=== PATIENT | female | born 1965 | race Caucasian/White ===

== ENCOUNTER → 2017-03-22 | Outpatient (CLI) | payer BC | END | disposition home or self-care (01) | LOC: KCIC MAMMO 07:53 | DX: Z12.31 Encounter for screening mammogram for malignant neoplasm of breast (principal) | CPT/HCPCS: 77063; 77067 ==

== ENCOUNTER 2017-05-28 15:12 | Inpatient (IN) | payer BC ==
[2017-05-28 16:49] LABS: BASO # 0.2 x10^3/uL (0.0-0.2); BASO % 1 % (0-3); EOS # 0.1 x10^3/uL (0.0-0.7); EOS % 1 % (0-3); HEMATOCRIT 44.7 % (36.0-47.0); HEMOGLOBIN 14.5 g/dL (12.0-15.5); LYMPH # 6.4 x10^3/uL (1.0-4.8); LYMPH % 28 % (24-48); MEAN CORPUSCULAR HEMOGLOBIN 30 pg (25-35); MEAN CORPUSCULAR HGB CONC 33 g/dL (31-37); MEAN CORPUSCULAR VOLUME 92 fL (79-100); MONO # 1.2 x10^3/uL (0.0-1.1); MONO % 6 % (0-9); NEUT # 14.6 x10^3uL (1.8-7.7); NEUT % 65 % (31-73); PLATELET COUNT 384 x10^3/uL (140-400); RED BLOOD COUNT 4.88 x10^6/uL (3.50-5.40); WHITE BLOOD COUNT 22.4 x10^3/uL (4.0-11.0)
[2017-05-28 16:51] LABS: ADD MAN DIFF? YES
[2017-05-28 17:05] LABS: ANION GAP 12 (6-14); BLOOD UREA NITROGEN 17 mg/dL (7-20); CALCIUM 8.8 mg/dL (8.5-10.1); CARBON DIOXIDE 27 mmol/L (21-32); CHLORIDE 106 mmol/L (98-107); CREATININE 0.8 mg/dL (0.6-1.0); GFR 75.3; GLUCOSE 165 mg/dL (70-99); POTASSIUM 3.3 mmol/L (3.5-5.1); SODIUM 145 mmol/L (136-145)
[2017-05-28 17:08] LABS: % LYMPHS 28 % (24-48); % METAS 1 % (0-0); % MONOS 4 % (0-10); % SEGS 67 % (35-66); PLT ESTIMATE ADEQUATE (ADEQUATE)
[2017-05-28 17:09] LABS: TOXIC GRANULATION MOD
[2017-05-28 17:14] LABS: NT-PRO BNP 79 pg/mL (0-124)
[2017-05-28 17:16] LABS: TROPONINI < 0.017 ng/mL (0.000-0.055)
[2017-05-28 17:17] LABS: ALBUMIN 2.9 g/dL (3.4-5.0); ALK PHOS 108 U/L (46-116); ALT (SGPT) 45 U/L (14-59); AST (SGOT) 19 U/L (15-37); DIRECT BILIRUBIN < 0.1 mg/dL (0.0-0.2); LIPASE 100 U/L (73-393); TOTAL BILIRUBIN 0.2 mg/dL (0.2-1.0); TOTAL PROTEIN 6.9 g/dL (6.4-8.2)
[2017-05-28] MEDS: IPRATRPIUM/ALBUTEROL 0.5/2.5MG 3 ML NEBU. NEB ×2 (17:25→19:46)
[2017-05-28 17:26] LABS: INFLUENZA A PATIENT NEGATIVE (NEGATIVE); INFLUENZA B PATIENT NEGATIVE (NEGATIVE); OBC FLU VALID
[2017-05-28] MEDS: IV NORMAL SALINE 1000ML BAG 1,000 ML IV ×3 (18:00→21:56)
[2017-05-28] MEDS ORDERED: ONDANSETRON PF 4 MG/2 ML VIAL. IV (18:15)
[2017-05-28] MEDS: POTASSIUM CHLORIDE 20 MEQ/15 ML ORAL LIQUID. PO (18:40)
[2017-05-28] MEDS: AZITHRMYCN 500MG IVPB FOR OMNI 250 ML IV (19:15)
[2017-05-28 20:34] LABS: LACTIC ACID 2.8 mmol/L (0.4-2.0)
[2017-05-28 22:52] LABS: TROPONINI < 0.017 ng/mL (0.000-0.055)
[2017-05-29 01:43] LABS: ANION GAP 7 (6-14); BLOOD UREA NITROGEN 12 mg/dL (7-20); CALCIUM 7.8 mg/dL (8.5-10.1); CARBON DIOXIDE 28 mmol/L (21-32); CHLORIDE 111 mmol/L (98-107); CREATININE 0.7 mg/dL (0.6-1.0); GFR 87.9; GLUCOSE 90 mg/dL (70-99); POTASSIUM 3.8 mmol/L (3.5-5.1); SODIUM 146 mmol/L (136-145)
[2017-05-29 01:43] LABS: TROPONINI < 0.017 ng/mL (0.000-0.055)
[2017-05-29 03:30] LABS: ADD MAN DIFF? NO
[2017-05-29 03:55] LABS: BASO % 0 % (0-3); EOS # 0.1 x10^3/uL (0.0-0.7); EOS % 1 % (0-3); HEMATOCRIT 38.3 % (36.0-47.0); HEMOGLOBIN 12.5 g/dL (12.0-15.5); LYMPH # 6.2 x10^3/uL (1.0-4.8); LYMPH % 42 % (24-48); MEAN CORPUSCULAR HEMOGLOBIN 30 pg (25-35); MEAN CORPUSCULAR HGB CONC 33 g/dL (31-37); MEAN CORPUSCULAR VOLUME 92 fL (79-100); MONO # 0.9 x10^3/uL (0.0-1.1); MONO % 6 % (0-9); NEUT # 7.4 x10^3uL (1.8-7.7); NEUT % 51 % (31-73); PLATELET COUNT 304 x10^3/uL (140-400); RED BLOOD COUNT 4.16 x10^6/uL (3.50-5.40); WHITE BLOOD COUNT 14.6 x10^3/uL (4.0-11.0)
[2017-05-29] MEDS: IPRATRPIUM/ALBUTEROL 0.5/2.5MG 3 ML NEBU. NEB ×5 (07:18→20:00)
[2017-05-29] MEDS: IV NORMAL SALINE 1000ML BAG 1,000 ML IV (08:42)
[2017-05-29] MEDS: LACTOBACILLUS RHAMNOSUS GG 1 CAPSULE. PO ×2 (11:05→21:18)
[2017-05-29] MEDS: AZITHROMYCIN 250 MG TABLET. PO (11:05)
[2017-05-29] MEDS: ENOXAPARIN 40 MG/0.4 ML SYRINGE. SQ (11:07)
[2017-05-29] MEDS: ACETAMINOPHEN 325 MG TABLET. PO (14:00)
[2017-05-29] MEDS ORDERED: IBUPROFEN 400 MG TABLET. PO (15:00)
[2017-05-29] MEDS ORDERED: NON FORMULARY ITEM (Melatonin 10 MG) PO (15:00)
[2017-05-29] MEDS: PANTOPRAZOLE 40 MG TABLET.DR. PO (15:19)
[2017-05-29] MEDS: DULoxetine HCL 30 MG CAPSULE.DR PO (15:19)
[2017-05-29] MEDS: OMEGA-3 FATTY ACIDS/FISH OIL 1,000 MG CAPSULE. PO ×2 (15:19→21:18)
[2017-05-29] MEDS: cefTRIAXone IV Push 1 GM VIAL. IVP (19:18)
[2017-05-30 05:22] LABS: ADD MAN DIFF? NO
[2017-05-30 05:31] LABS: BASO % 0 % (0-3); EOS # 0.3 x10^3/uL (0.0-0.7); EOS % 2 % (0-3); HEMATOCRIT 41.8 % (36.0-47.0); HEMOGLOBIN 13.6 g/dL (12.0-15.5); LYMPH # 4.6 x10^3/uL (1.0-4.8); LYMPH % 37 % (24-48); MEAN CORPUSCULAR HEMOGLOBIN 30 pg (25-35); MEAN CORPUSCULAR HGB CONC 33 g/dL (31-37); MEAN CORPUSCULAR VOLUME 92 fL (79-100); MONO # 0.8 x10^3/uL (0.0-1.1); MONO % 6 % (0-9); NEUT # 6.9 x10^3uL (1.8-7.7); NEUT % 54 % (31-73); PLATELET COUNT 308 x10^3/uL (140-400); RED BLOOD COUNT 4.57 x10^6/uL (3.50-5.40); RED CELL DISTRIBUTION WIDTH 13.9 % (11.5-14.5); WHITE BLOOD COUNT 12.6 x10^3/uL (4.0-11.0)
[2017-05-30 06:04] LABS: ALBUMIN 2.6 g/dL (3.4-5.0); ALBUMIN/GLOBULIN RATIO 0.7 (1.0-1.7); ALK PHOS 96 U/L (46-116); ALT (SGPT) 29 U/L (14-59); ANION GAP 7 (6-14); AST (SGOT) 9 U/L (15-37); BLOOD UREA NITROGEN 9 mg/dL (7-20); BUN/CREATININE RATIO 13 (6-20); CALCIUM 8.8 mg/dL (8.5-10.1); CARBON DIOXIDE 32 mmol/L (21-32); CHLORIDE 105 mmol/L (98-107); CREATININE 0.7 mg/dL (0.6-1.0); GFR 87.9; GLUCOSE 107 mg/dL (70-99); POTASSIUM 4.3 mmol/L (3.5-5.1); SODIUM 144 mmol/L (136-145); TOTAL BILIRUBIN 0.2 mg/dL (0.2-1.0); TOTAL PROTEIN 6.2 g/dL (6.4-8.2)
[2017-05-30] MEDS: IPRATRPIUM/ALBUTEROL 0.5/2.5MG 3 ML NEBU. NEB ×2 (07:49→11:45)
[2017-05-30] MEDS: PANTOPRAZOLE 40 MG TABLET.DR. PO (08:09)
[2017-05-30] MEDS: AZITHROMYCIN 250 MG TABLET. PO (08:09)
[2017-05-30] MEDS: LACTOBACILLUS RHAMNOSUS GG 1 CAPSULE. PO (08:09)
[2017-05-30] MEDS: OMEGA-3 FATTY ACIDS/FISH OIL 1,000 MG CAPSULE. PO (08:09)
[2017-05-30] MEDS: DULoxetine HCL 30 MG CAPSULE.DR PO (08:09)
[2017-05-30] MEDS: buPROPion XL 150 MG TAB.ER.24H. PO (08:09)
[2017-05-30] MEDS ORDERED: NON FORMULARY ITEM (Lansoprazole (Prevacid) 1 CAP) PO (09:00)
[2017-05-30] MEDS: ENOXAPARIN 40 MG/0.4 ML SYRINGE. SQ (10:09)
[2017-05-30] MEDS ORDERED: CEFPODOXIME PROXETIL 100 MG TABLET. PO (21:00)
== END 2017-05-30 15:16 | disposition home or self-care (01) | DRG 193 ==
LOC: ER 15:12 → 5 NORTH 18:10
DX: J10.00 Influenza due to other identified influenza virus with unspecified type of pneumonia (principal); J96.01 Acute respiratory failure with hypoxia; J44.0 Chronic obstructive pulmonary disease with (acute) lower respiratory infection; J98.11 Atelectasis; J44.1 Chronic obstructive pulmonary disease with (acute) exacerbation; F17.210 Nicotine dependence, cigarettes, uncomplicated; J10.1 Influenza due to other identified influenza virus with other respiratory manifestations; J20.9 Acute bronchitis, unspecified; K21.9 Gastro-esophageal reflux disease without esophagitis; F32.9 Major depressive disorder, single episode, unspecified; K44.9 Diaphragmatic hernia without obstruction or gangrene; T38.0X5A Adverse effect of glucocorticoids and synthetic analogues, initial encounter; Y92.89 Other specified places as the place of occurrence of the external cause; Z90.710 Acquired absence of both cervix and uterus; Z87.01 Personal history of pneumonia (recurrent); Z88.5 Allergy status to narcotic agent; Z90.49 Acquired absence of other specified parts of digestive tract
CPT/HCPCS: 36415; 71045; 71250; 80048; 80053; 80076; 83605; 83690; 83880; 84484; 85007; 85025; 87040; 87804; 87804-59; 93005; 94640; 94760; 96361; 96365; 96366; 96368; 99285; 99285-25; J0456; J0690; J0696; J1650; J7030; J7620; Q0144

== ENCOUNTER → 2017-06-07 | Outpatient (CLI) | payer BC | END | disposition home or self-care (01) | LOC: ECHO 12:36 | DX: I08.0 Rheumatic disorders of both mitral and aortic valves (principal) | CPT/HCPCS: 93306 ==

== ENCOUNTER 2017-10-08 12:36 | Emergency (ER) | payer BC ==
[~2017-10-08] VITALS: Ht 170.2 cm; Wt 90.7 kg
[~2017-10-08 12:36] MED LIST: AMOX1TAB61 PO; BUPR300T3 PO; CEFP100T PO; DULO60CA6 PO; IBUP-1027 PO; IPRA3AMP29 NEB; LANS30CA66 PO; MELA3TAB2 PO; OMEG1CAP2 PO
[2017-10-08 12:41] VITALS: BP 141/72
[2017-10-08] MEDS ORDERED: KETOROLAC 15 MG/ML VIAL. IM ONE (13:15)
--- NOTE | 2017-10-08 13:26 | PHYS DOC ---
Past Medical History Past Medical History: Depression, GERD Past Surgical History: Cholecystectomy, Hysterectomy, Other Alcohol Use: Rarely Drug Use: None Adult General Chief Complaint Chief Complaint: BACK PAIN OR INJURY HPI HPI Patient is a 52 year old presents to the emergency department with complaints of left mid back pain for the last 3 days. She denies any loss of bowel or bladder control, any numbness or tingling in her abdomen, or any known injury. She states that yesterday the pain was so bad it caused her to vomit 4 times. Patient denies any vomiting in the last 24 hours. Currently, she rates her pain as a 10 out of 10 on the pain scale and states that she has tried taking ibuprofen at home with no relief of her symptoms. Patient denies any headache, bony tenderness, chest pain, shortness of breath, or weakness associated with her pain. Review of Systems Review of Systems Constitutional: Denies fever or chills [] Respiratory: Denies cough or shortness of breath [] Cardiovascular: Denies chest pain GI: Denies abdominal pain, saddle anesthesia, reports pain was so severe yesterday she had 4 episodes of nausea and vomiting, : Denies dysuria or increased urinary frequency, or hematuria [] Musculoskeletal: Denies left sided mid back pain, increases with palpation and movement Integument: Denies rash or skin lesions [] Neurologic: Denies headache, focal weakness or sensory changes [] All other systems were reviewed and found to be within normal limits, except as documented in this note. Current Medications Current Medications Current Medications Medications (Trade) Dose Ordered Sig/[facility] Start Time Stop Time Status Last Admin Dose Admin Dexamethasone Sodium Phosphate (Decadron) 10 mg 1X ONCE 10/08/17 13:45 10/08/17 13:45 DC Ketorolac Tromethamine (Toradol) 30 mg 1X ONCE 10/08/17 13:15 10/08/17 13:16 DC 10/08/17 13:31 30 MG Orphenadrine Citrate (Norflex) 60 mg 1X ONCE 10/08/17 13:45 10/08/17 13:46 DC 10/08/17 13:31 60 MG Allergies Allergies Allergies Coded Allergies Type Severity Reaction Last Updated Verified morphine Allergy Intermediate Unknown 05/28/17 Yes Physical Exam Physical Exam Constitutional: Well developed, well nourished, no acute distress, non-toxic appearance. [] HENT: Normocephalic, atraumatic, bilateral external ears normal, nose normal. [] Eyes: PERRLA, conjunctiva normal, no discharge. [] Neck: Normal range of motion, no tenderness, supple, no stridor. [] Cardiovascular:Heart rate regular rhythm, no murmur [] Lungs & Thorax: Bilateral breath sounds clear to auscultation [] Skin: Warm, dry, no erythema, no rash. [] Back: tenderness with palpation of left lateral t-spine, no body tenderness Extremities: No tenderness, ROM intact, no edema. [] Neurologic: Alert and oriented X 3, normal motor function, normal sensory function, no focal deficits noted. [] Psychologic: Affect normal, judgement normal, mood normal. [] Current Patient Data Vital Signs Vital Signs Date Time Temp Pulse Resp B/P (MAP) Pulse Ox O2 Delivery O2 Flow Rate FiO2 10/08/17 12:41 98.0 101 18 141/72 (95) 96 Room Air 98.0 EKG EKG [] Radiology/Procedures Radiology/Procedures [] Course & Med Decision Making Course & Med Decision Making Pertinent Labs and Imaging studies reviewed. (See chart for details) Patient is a 52-year-old female who presents to the emergency room with complaints of left mid back pain for the last 3 days. She denied any known injury, saddle anesthesia, or loss of bowel or bladder control. Her vital signs are stable in the emergency department, however patient has mild has elevated blood pressure. Exam is not concerning for any acute fracture , or cauda equina, she presents as a muscle strain, treated as such. Patient is given IM Toradol and Norflex in the emergency department for relief of her pain. Prescriptions will be written for naproxen and orphenadrine. She was instructed to follow-up with her primary care doctor about her elevated blood pressure. Patient verbalizes an understanding of her home care, prescriptions, follow-up, and return to ED instructions without any further questions or concerns. [] Dragon Disclaimer Dragon Disclaimer This electronic medical record was generated, in whole or in part, using a voice recognition dictation system. Departure Departure Impression: Primary Impression: Acute thoracic back pain Additional Impression: Thoracic back sprain Condition: STABLE Referrals: KALINA WEBER DO (PCP) Patient Instructions: Thoracic Outlet Syndrome-Brief Additional Instructions: Fill the prescriptions and use as directed. May apply ice or heat to sore areas for comfort, activity as tolerated. Follow-up with your primary care doctor in the next 1-2 days. Return to the emergency room if your symptoms worsen. Scripts Naproxen Sodium (ANAPROX DS) 550 Mg Tablet 1 TAB PO BID PRN for PAIN for 10 Days, #20 TAB 0 Refills Prov: JOSEFINA CARBAJAL APRN 10/08/17 Orphenadrine Citrate (ORPHENADRINE CITRATE) 100 Mg Tablet.er 1 TAB PO BID PRN for MUSCLE PAIN for 10 Days, #20 TAB 0 Refills Prov: JOSEFINA CARBAJAL APRN 10/08/17 Problem Qualifiers Primary Impression: Acute thoracic back pain Back pain laterality: left Qualified Codes: M54.6 - Pain in thoracic spine Additional Impression: Thoracic back sprain Encounter type: initial encounter Qualified Codes: S23.9XXA - Sprain of unspecified parts of thorax, initial encounter JOSEFINA CARBAJAL APRN Oct 08, 2017 13:26
[2017-10-08] MEDS ORDERED: DEXAMETHASONE SOD PHOS 20 MG/5 ML VIAL. IM ONE (13:45)
[2017-10-08] MEDS ORDERED: ORPHENADRINE CITRATE 60 MG/2 ML VIAL. IM ONE (13:45)
[2017-10-08] MEDS ORDERED: ORPH100T PO (14:06)
[2017-10-08] MEDS ORDERED: NAPR-682 PO (14:06)
== END 2017-10-08 14:28 | disposition home or self-care (01) ==
LOC: ER 12:36
DX: S23.3XXA Sprain of ligaments of thoracic spine, initial encounter (principal); F32.9 Major depressive disorder, single episode, unspecified; K21.9 Gastro-esophageal reflux disease without esophagitis; Z90.49 Acquired absence of other specified parts of digestive tract; Z90.710 Acquired absence of both cervix and uterus; Z88.5 Allergy status to narcotic agent; X58.XXXA Exposure to other specified factors, initial encounter; Y93.89 Activity, other specified; Y92.89 Other specified places as the place of occurrence of the external cause; Y99.8 Other external cause status
CPT/HCPCS: 96372; 99284; J1885; J2360

== ENCOUNTER 2018-10-20 09:48 | Inpatient (IN) | payer BC ==
[~2018-10-20] VITALS: Ht 170.2 cm; Wt 91.6 kg
[~2018-10-20 09:48] MED LIST changes: +BENZ1LOZ4 PO; +DOCU-109 PO; +GUAI5SYR PO; +ICOS1CAP PO; +LINE600T PO; +METF500T16 PO; +NAPR-682 PO; +NYST100054 SWSW; +ORPH100T PO
[2018-10-20] MEDS ORDERED: NITROGLYCERIN SUBLINGUAL 0.4 MG BOTTLE OF 25. SL STA (10:07)
--- NOTE | 2018-10-20 10:17 | PHYS DOC ---
Past Medical History Past Medical History: Depression, Diabetes-Type II, GERD, High Cholesterol, Hypertension, Other Additional Past Medical Histor: Autoimmune disease Past Surgical History: Cholecystectomy, Hysterectomy, Other Smoking: Quit Less Than 1 Year Alcohol Use: Rarely Drug Use: None Adult General Chief Complaint Chief Complaint: CHEST PAIN [facility] HPI Patient is a 53 year old female who presents via EMS with complaining of chest pain. Patient complaining of sudden onset of nonexertional substernal sharp pain that started about 1 hour prior to arrival to ER and hit her pain is 8/10. Patient stated the pain radiated to left shoulder and associated with shortness of breath, nausea, palpitation, dizziness. Patient improved after EMS gave her aspirin and nitroglycerin �1 and dropped to 5/10. Patient denies history of previous chest pain or cardiac event. Patient was admitted in September 29 for pneumonia and discharged home on October 04 but states her cough is not getting better and still complaining of productive cough with creamy colored sputum. Patient denies fever and chills, vomiting and diarrhea, urinary symptoms, lower extremity pain, history of DVT. Review of Systems Review of Systems Constitutional: Denies fever or chills [] Eyes: Denies change in visual acuity, redness, or eye pain [] HENT: Denies nasal congestion or sore throat [] Respiratory: Reports cough and shortness of breath Cardiovascular: No additional information not addressed in HPI [] GI: Denies abdominal pain, vomiting, bloody stools or diarrhea , reports nausea[] : Denies dysuria or hematuria [] Musculoskeletal: Denies back pain or joint pain [] Integument: Denies rash or skin lesions [] Neurologic: Denies headache, focal weakness or sensory changes [] Endocrine: Denies polyuria or polydipsia [] All other systems were reviewed and found to be within normal limits, except as documented in this note. Current Medications Current Medications Current Medications Medications (Trade) Dose Ordered Sig/[facility] Start Time Stop Time Status Last Admin Dose Admin Lorazepam (Ativan Inj) 1 mg 1X ONCE 10/20/18 11:30 10/20/18 11:31 DC 10/20/18 11:27 1 MG Nitroglycerin (Nitrostat) 0.4 mg 1X STAT 10/20/18 10:07 10/20/18 10:11 DC 10/20/18 10:18 0.4 MG Ondansetron HCl (Zofran) 4 mg 1X ONCE 10/20/18 11:30 10/20/18 11:31 DC 10/20/18 11:27 4 MG Allergies Allergies Allergies Coded Allergies Type Severity Reaction Last Updated Verified morphine Adverse Reaction Intermediate Unknown 10/03/18 Yes Physical Exam Physical Exam Constitutional: Well developed, well nourished, mild distress, non-toxic appearance. [] HENT: Normocephalic, atraumatic. Eyes: PERRLA, EOMI, conjunctiva normal, no discharge. [] Neck: Normal range of motion, no tenderness, supple, no stridor. [] Cardiovascular:Heart rate regular rhythm, no murmur [] Lungs & Thorax: Bilateral breath sounds clear to auscultation [] Abdomen: Bowel sounds normal, soft, no tenderness, no masses, no pulsatile masses. [] Skin: Warm, dry, no erythema, no rash. [] Back: No tenderness, no CVA tenderness. [] Extremities: No tenderness, no cyanosis, no clubbing, ROM intact, no edema. [] Neurologic: Alert and oriented X 3, no focal deficits noted. [] Psychologic: Affect anxious, judgement normal, mood normal. [] Current Patient Data Vital Signs Vital Signs Date Time Temp Pulse Resp B/P (MAP) Pulse Ox O2 Delivery O2 Flow Rate FiO2 10/20/18 10:30 88 12 119/59 (79) 93 Room Air 10/20/18 09:56 98.4 98.4 Lab Values Laboratory Tests Test 10/20/18 10:11 White Blood Count 9.6 x10^3/uL (4.0-11.0) Red Blood Count 3.96 x10^6/uL (3.50-5.40) Hemoglobin 11.3 g/dL (12.0-15.5) L Hematocrit 34.1 % (36.0-47.0) L Mean Corpuscular Volume 86 fL (79-100) Mean Corpuscular Hemoglobin 29 pg (25-35) Mean Corpuscular Hemoglobin Concent 33 g/dL (31-37) Red Cell Distribution Width 17.6 % (11.5-14.5) H Platelet Count 360 x10^3/uL (140-400) Neutrophils (%) (Auto) 54 % (31-73) Lymphocytes (%) (Auto) 37 % (24-48) Monocytes (%) (Auto) 7 % (0-9) Eosinophils (%) (Auto) 2 % (0-3) Basophils (%) (Auto) 0 % (0-3) Neutrophils # (Auto) 5.2 x10^3/uL (1.8-7.7) Lymphocytes # (Auto) 3.5 x10^3/uL (1.0-4.8) Monocytes # (Auto) 0.7 x10^3/uL (0.0-1.1) Eosinophils # (Auto) 0.2 x10^3/uL (0.0-0.7) Basophils # (Auto) 0.0 x10^3/uL (0.0-0.2) Prothrombin Time 11.7 SEC (11.7-14.0) Prothrombin Time INR 0.9 (0.8-1.1) D-Dimer (Keiry) 0.36 ug/mlFEU (0.00-0.50) Sodium Level 141 mmol/L (136-145) Potassium Level 4.4 mmol/L (3.5-5.1) Chloride Level 104 mmol/L (98-107) Carbon Dioxide Level 29 mmol/L (21-32) Anion Gap 8 (6-14) Blood Urea Nitrogen 13 mg/dL (7-20) Creatinine 1.0 mg/dL (0.6-1.0) Estimated GFR (Cockcroft-Gault) 57.8 BUN/Creatinine Ratio 13 (6-20) Glucose Level 107 mg/dL (70-99) H Calcium Level 9.0 mg/dL (8.5-10.1) Magnesium Level 1.7 mg/dL (1.8-2.4) L Total Bilirubin 0.3 mg/dL (0.2-1.0) Aspartate Amino Transferase (AST) 37 U/L (15-37) Alanine Aminotransferase (ALT) 48 U/L (14-59) Alkaline Phosphatase 111 U/L (46-116) Creatine Kinase 66 U/L (26-192) Troponin I Quantitative < 0.017 ng/mL (0.000-0.055) JZ-[id number]-X-Type Natriuretic Peptide 17 pg/mL (0-124) Total Protein 7.4 g/dL (6.4-8.2) Albumin 3.2 g/dL (3.4-5.0) L Albumin/Globulin Ratio 0.8 (1.0-1.7) L Lipase 72 U/L (73-393) L Laboratory Tests 10/20/18 10:11 Laboratory Tests 10/20/18 10:11 EKG EKG EKG interpreted by me. EKG at 0 955 showed normal sinus rhythm at rate of 85, nonspecific ST changes, no acute ST and T-wave elevation. Radiology/Procedures Radiology/Procedures [facility] [address] [place] [address] IMAGING REPORT Signed PATIENT: YAKOV DUKE MACCOUNT: [id number] : 1965 LOCATION: ER AGE: 53 SEX: F EXAM STATUS: REG ER ORD. PHYSICIAN: KERRY FRAUSTO MD REASON: chest pain PROCEDURE: PORTABLE CHEST 1V Chest radiograph 10/20/2018 10:07 AM INDICATION: Chest pain COMPARISON: 10/03/2018 TECHNIQUE: Portable upright frontal view of the chest is provided. FINDINGS: The cardiomediastinal silhouette is within normal limits. Suture material is identified in the right upper lung. There are no pleural effusions. There is no pulmonary vascular congestion. There is no pneumothorax. The lungs are clear. Anterior cervical discectomy and fusion hardware is partially profiled in the lower cervical spine. IMPRESSION: No acute cardiopulmonary process. Electronically signed by: Linda Vazquez MD (10/20/2018 10:33 AM) [id number] DICTATED and SIGNED BY: LINDA VAZQUEZ MD DATE: 10/20/18 1033 Course & Med Decision Making Course & Med Decision Making Pertinent Labs and Imaging studies reviewed. (See chart for details) Evaluation of patient in ER showed 53-year-old female patient with heart score of 6 presented with sudden onset of chest pain. Patient was very anxious in ER and felt better with treatment of Ativan. Patient had unremarkable labs and EKG and chest x-ray. Patient had recent hospitalization with negative d-dimer. Patient requiring admission for further evaluation and treatment. Discussed with Dr. Maria who is in agreement with admission. Discussed findings and plan with patient and family, who acknowledge understanding and agreement. Dragon Disclaimer Dragon Disclaimer This electronic medical record was generated, in whole or in part, using a voice recognition dictation system. Departure Departure Impression: Primary Impression: Acute chest pain Additional Impressions: Anxiety about health Anemia Disposition: ADMITTED INPATIENT Admitting Physician: EDUARDO Condition: IMPROVED Referrals: KALINA WEBER DO (PCP) The HEART Score for CP Pts HEART Score for Chest Pain: HEART Score for Chest Pain Response (Comments) Value History Highly Suspicious 2 ECG Nonspecific Repolarizatio 1 Age >45 - < 65 1 Risk Factors >3 Risk Factors or Hx CAD 2 Troponin < Normal Limit 0 Total 6 Risk Factors: Risk Factors: DM, Current or recent (<one month) smoker, HTN, HLP, family history of CAD, obesity. Risk Scores: Score 0 - 3: 2.5% MACE over next 6 weeks - Discharge Home Score 4 - 6: 20.3% MACE over next 6 weeks - Admit for Clinical Observation Score 7 - 10: 72.7% MACE over next 6 weeks - Early Invasive Strategies Problem Qualifiers Additional Impressions: Anemia Anemia type: unspecified type Qualified Codes: D64.9 - Anemia, unspecified KERRY FRAUSTO MD Oct 20, 2018 10:17
[2018-10-20 10:26] LABS: BASO % 0 % (0-3); EOS # 0.2 x10^3/uL (0.0-0.7); EOS % 2 % (0-3); HEMATOCRIT 34.1 % (36.0-47.0); HEMOGLOBIN 11.3 g/dL (12.0-15.5); LYMPH # 3.5 x10^3/uL (1.0-4.8); LYMPH % 37 % (24-48); MEAN CORPUSCULAR HEMOGLOBIN 29 pg (25-35); MEAN CORPUSCULAR HGB CONC 33 g/dL (31-37); MEAN CORPUSCULAR VOLUME 86 fL (79-100); MONO # 0.7 x10^3/uL (0.0-1.1); MONO % 7 % (0-9); NEUT # 5.2 x10^3/uL (1.8-7.7); NEUT % 54 % (31-73); PLATELET COUNT 360 x10^3/uL (140-400); RED BLOOD COUNT 3.96 x10^6/uL (3.50-5.40); RED CELL DISTRIBUTION WIDTH 17.6 % (11.5-14.5); WHITE BLOOD COUNT 9.6 x10^3/uL (4.0-11.0)
[2018-10-20 10:29] LABS: PROTHROMBIN TIME PATIENT 11.7 SEC (11.7-14.0)
[2018-10-20 10:32] LABS: D-DIMER 0.36 ug/mlFEU (0.00-0.50)
[2018-10-20 10:36] LABS: GFR 57.8; POTASSIUM 4.4 mmol/L (3.5-5.1)
--- NOTE | 2018-10-20 10:36 | RAD ---
Chest radiograph 10/20/2018 10:07 AM INDICATION: Chest pain COMPARISON: 10/03/2018 TECHNIQUE: Portable upright frontal view of the chest is provided. FINDINGS: The cardiomediastinal silhouette is within normal limits. Suture material is identified in the right upper lung. There are no pleural effusions. There is no pulmonary vascular congestion. There is no pneumothorax. The lungs are clear. Anterior cervical discectomy and fusion hardware is partially profiled in the lower cervical spine. IMPRESSION: No acute cardiopulmonary process. Electronically signed by: Ludivina Brady MD (10/20/2018 10:33 AM) [id number]
[2018-10-20 10:43] LABS: ALBUMIN 3.2 g/dL (3.4-5.0); ALBUMIN/GLOBULIN RATIO 0.8 (1.0-1.7); MAGNESIUM 1.7 mg/dL (1.8-2.4); TOTAL BILIRUBIN 0.3 mg/dL (0.2-1.0); TOTAL PROTEIN 7.4 g/dL (6.4-8.2)
--- NOTE | 2018-10-20 11:02 | EKG ---
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
[2018-10-20] MEDS ORDERED: ONDANSETRON PF 4 MG/2 ML VIAL. IV ONE (11:30)
[2018-10-20] MEDS ORDERED: DEXTROSE 50% 25 GM / 50ML DISP.SYRIN. IV PRN (12:00)
[2018-10-20] MEDS ORDERED: NON FORMULARY ITEM (Melatonin 10 MG) PO PRN (12:00)
[2018-10-20] MEDS: INSULIN LISPRO 300 UNITS/3 ML VIAL. SQ SCH ×2 (12:00→16:42)
[2018-10-20] MEDS ORDERED: IV DEXTROSE 5% 250 ML BAG. IV PRN (12:00)
[2018-10-20] MEDS ORDERED: metFORMIN 500 MG TABLET PO PRN (12:00)
[2018-10-20] MEDS ORDERED: IBUPROFEN 400 MG TABLET. PO PRN (12:00)
[2018-10-20] MEDS ORDERED: guaiFENesin DM 200MG/20MG 10 ML SYRUP PO PRN (12:00)
[2018-10-20] MEDS ORDERED: ALPRAZolam 0.25 MG TABLET PO PRN (12:00)
[2018-10-20] MEDS ORDERED: BENZOCAINE/MENTHOL LOZENGE. PO PRN (12:00)
--- NOTE | 2018-10-20 12:06 | PDOC1 ---
History and Physical Date of Admission Date of Admission DATE: 10/20/18 TIME: 12:01 Identification/Chief Complaint Chief Complaint cp at rest Source Source: Caregiver, Chart review, Patient History of Present Illness History of Present Illness 53 white female, cp at rest while at desk in computer, had some soa, anxiety attack seems to be, claims was nauseated etc, LAsted an hr, got better with time? No personal hx CAD, last MPI DR. Otero 10 yrs ago, normal., CXR EKG and first trop reassuring, CP free and non toxic appearing as I see her in ER. FULL CODE Dw fam members at bedside No identifiable precip or alleviating factor, no radiation to jaw or left shoulder She field shave risk factors, DM and HTN, [id number], BS ok here, ALso some depression on meds ( which i verified with her) Past Medical History Cardiovascular: HTN Psych: Depression Infectious disease: Other Endocrine: Diabetes Past Surgical History Past Surgical History: No pertinent history Family History Family History: High Cholestrol Family History: Grandparents Social History Smoke: No ALCOHOL: rare Drugs: None Current Problem List Problem List Problems Medical Problems: (1) Acute chest pain Status: Acute (2) Anemia Status: Acute (3) Anxiety about health Status: Acute Current Medications Current Medications Current Medications Nitroglycerin (Nitrostat) 0.4 mg 1X STAT SL Last administered on 10/20/18at 10:18; Start 10/20/18 at 10:07; Stop 10/20/18 at 10:11; Status DC Lorazepam (Ativan Inj) 1 mg 1X ONCE IV Last administered on 10/20/18at 11:27; Start 10/20/18 at 11:30; Stop 10/20/18 at 11:31; Status DC Ondansetron HCl (Zofran) 4 mg 1X ONCE IV Last administered on 10/20/18at 11:27; Start 10/20/18 at 11:30; Stop 10/20/18 at 11:31; Status DC Active Scripts Active Augmentin 875-125 Tablet (Amoxicillin/Potassium Clav) 1 Each Tablet 1 Tab PO BID Colace (Docusate Sodium) 100 Mg Capsule 100 Mg PO BID 10 Days Sore Throat Lozenge (Benzocaine/Menthol) 1 Each Lozenge 1 Yair PO PRN Q2HRS PRN 10 Days Guaifenesin Dm Syrup (Guaifenesin/Dextromethorphan) 5 Ml Syrup 10 Ml PO PRN Q4HRS PRN 10 Days Zyvox (Linezolid) 600 Mg Tablet 600 Mg PO BID 10 Days Nystatin 100,000 Unit/1 Ml Oral.susp 5 Ml SWSW [id number] 10 Days Orphenadrine Citrate 100 Mg Tablet.er 1 Tab PO BID PRN 10 Days Duoneb 0.5-3(2.5) Mg/3 Ml (Albuterol/Ipratropium) 3 Ml Ampul.neb 3 Ml NEB RTQID 30 Days Reported Metformin Hcl 500 Mg Tablet 150 Mg PO BID PRN Vascepa (Icosapent Ethyl) 1 Gm Capsule 1 Gm PO DAILY08 Melatonin 3 Mg Tablet 10 Mg PO HS PRN Ibuprofen 400 Mg Tablet 400 Mg PO PRN TID PRN Prevacid (Lansoprazole) 30 Mg Capsule.dr 1 Cap PO DAILY Lovaza ([place]-3 Acid Ethyl Esters) 1 Gm Capsule 1 Gm PO DAILY08 Wellbutrin Xl (Bupropion Hcl) 300 Mg Tab.er.24h 1 Tab PO DAILY Cymbalta (Duloxetine Hcl) 60 Mg Capsule.dr 1 Cap PO DAILY Allergies Allergies: Coded Allergies: morphine (Verified Adverse Reaction, Intermediate, Unknown, 10/03/18) "LOOPY AND MEAN" ROS Review of System as per HPI, rest 14 pt neg Physical Exam General: Alert, Oriented X3, Cooperative, No acute distress HEENT: Atraumatic, PERRLA, EOMI Lungs: Clear to auscultation, Normal air movement Heart: S1S2, RRR, no thrills, no rubs, no gallops, no murmurs Cardiovascular: S1, S2 Breasts: Normal, Rt breast nml w/o mass, Lt breast nml w/o mass, Nipples normal Abdomen: Normal bowel sounds, Soft, No tenderness, No hepatosplenomegaly, No masses Rectal Exam: not examined PELVIC: Nml ext genitalia Extremities: No clubbing, No cyanosis, No edema, Normal pulses, No tenderness/swelling Skin: No rashes, No breakdown, No significant lesion Neuro: Normal gait, Normal speech, Strength at 5/5 X4 ext, Normal tone, Sensation intact, Cranial nerves 3-12 NL, Reflexes 2+ Psych/Mental Status: Mental status NL, Mood NL Vitals Vitals Vital Signs Date Time Temp Pulse Resp B/P (MAP) Pulse Ox O2 Delivery O2 Flow Rate FiO2 10/20/18 10:30 88 12 119/59 (79) 93 Room Air 10/20/18 09:56 98.4 98.4 Labs Labs Laboratory Tests Test 10/20/18 10:11 White Blood Count 9.6 x10^3/uL (4.0-11.0) Red Blood Count 3.96 x10^6/uL (3.50-5.40) Hemoglobin 11.3 g/dL (12.0-15.5) Hematocrit 34.1 % (36.0-47.0) Mean Corpuscular Volume 86 fL (79-100) Mean Corpuscular Hemoglobin 29 pg (25-35) Mean Corpuscular Hemoglobin Concent 33 g/dL (31-37) Red Cell Distribution Width 17.6 % (11.5-14.5) Platelet Count 360 x10^3/uL (140-400) Neutrophils (%) (Auto) 54 % (31-73) Lymphocytes (%) (Auto) 37 % (24-48) Monocytes (%) (Auto) 7 % (0-9) Eosinophils (%) (Auto) 2 % (0-3) Basophils (%) (Auto) 0 % (0-3) Neutrophils # (Auto) 5.2 x10^3/uL (1.8-7.7) Lymphocytes # (Auto) 3.5 x10^3/uL (1.0-4.8) Monocytes # (Auto) 0.7 x10^3/uL (0.0-1.1) Eosinophils # (Auto) 0.2 x10^3/uL (0.0-0.7) Basophils # (Auto) 0.0 x10^3/uL (0.0-0.2) Prothrombin Time 11.7 SEC (11.7-14.0) Prothromb Time International Ratio 0.9 (0.8-1.1) D-Dimer (Keiry) 0.36 ug/mlFEU (0.00-0.50) Sodium Level 141 mmol/L (136-145) Potassium Level 4.4 mmol/L (3.5-5.1) Chloride Level 104 mmol/L (98-107) Carbon Dioxide Level 29 mmol/L (21-32) Anion Gap 8 (6-14) Blood Urea Nitrogen 13 mg/dL (7-20) Creatinine 1.0 mg/dL (0.6-1.0) Estimated GFR (Cockcroft-Gault) 57.8 BUN/Creatinine Ratio 13 (6-20) Glucose Level 107 mg/dL (70-99) Calcium Level 9.0 mg/dL (8.5-10.1) Magnesium Level 1.7 mg/dL (1.8-2.4) Total Bilirubin 0.3 mg/dL (0.2-1.0) Aspartate Amino Transf (AST/SGOT) 37 U/L (15-37) Alanine Aminotransferase (ALT/SGPT) 48 U/L (14-59) Alkaline Phosphatase 111 U/L (46-116) Creatine Kinase 66 U/L (26-192) Troponin I Quantitative < 0.017 ng/mL (0.000-0.055) CL-Ecm-S-Type Natriuretic Peptide 17 pg/mL (0-124) Total Protein 7.4 g/dL (6.4-8.2) Albumin 3.2 g/dL (3.4-5.0) Albumin/Globulin Ratio 0.8 (1.0-1.7) Lipase 72 U/L (73-393) Laboratory Tests Test 10/20/18 10:11 White Blood Count 9.6 x10^3/uL (4.0-11.0) Red Blood Count 3.96 x10^6/uL (3.50-5.40) Hemoglobin 11.3 g/dL (12.0-15.5) Hematocrit 34.1 % (36.0-47.0) Mean Corpuscular Volume 86 fL (79-100) Mean Corpuscular Hemoglobin 29 pg (25-35) Mean Corpuscular Hemoglobin Concent 33 g/dL (31-37) Red Cell Distribution Width 17.6 % (11.5-14.5) Platelet Count 360 x10^3/uL (140-400) Neutrophils (%) (Auto) 54 % (31-73) Lymphocytes (%) (Auto) 37 % (24-48) Monocytes (%) (Auto) 7 % (0-9) Eosinophils (%) (Auto) 2 % (0-3) Basophils (%) (Auto) 0 % (0-3) Neutrophils # (Auto) 5.2 x10^3/uL (1.8-7.7) Lymphocytes # (Auto) 3.5 x10^3/uL (1.0-4.8) Monocytes # (Auto) 0.7 x10^3/uL (0.0-1.1) Eosinophils # (Auto) 0.2 x10^3/uL (0.0-0.7) Basophils # (Auto) 0.0 x10^3/uL (0.0-0.2) Prothrombin Time 11.7 SEC (11.7-14.0) Prothromb Time International Ratio 0.9 (0.8-1.1) D-Dimer (Keiry) 0.36 ug/mlFEU (0.00-0.50) Sodium Level 141 mmol/L (136-145) Potassium Level 4.4 mmol/L (3.5-5.1) Chloride Level 104 mmol/L (98-107) Carbon Dioxide Level 29 mmol/L (21-32) Anion Gap 8 (6-14) Blood Urea Nitrogen 13 mg/dL (7-20) Creatinine 1.0 mg/dL (0.6-1.0) Estimated GFR (Cockcroft-Gault) 57.8 BUN/Creatinine Ratio 13 (6-20) Glucose Level 107 mg/dL (70-99) Calcium Level 9.0 mg/dL (8.5-10.1) Magnesium Level 1.7 mg/dL (1.8-2.4) Total Bilirubin 0.3 mg/dL (0.2-1.0) Aspartate Amino Transf (AST/SGOT) 37 U/L (15-37) Alanine Aminotransferase (ALT/SGPT) 48 U/L (14-59) Alkaline Phosphatase 111 U/L (46-116) Creatine Kinase 66 U/L (26-192) Troponin I Quantitative < 0.017 ng/mL (0.000-0.055) KZ-Cqw-U-Type Natriuretic Peptide 17 pg/mL (0-124) Total Protein 7.4 g/dL (6.4-8.2) Albumin 3.2 g/dL (3.4-5.0) Albumin/Globulin Ratio 0.8 (1.0-1.7) Lipase 72 U/L (73-393) VTE Prophylaxis Ordered VTE Prophylaxis Devices: Yes VTE Pharmacological Prophylaxi: Yes Assessment/Plan Assessment/Plan CP seems to be non cardiac in nature, could be anxiety related DM 2, HTN, controlled? - check hgba1c so far BS and BP good Depression?anxiety NOS PLAn: ok to eat then NPO post mn in case MPI CArd consult, trend CE I have reconciled home meds Seen at ER FULL CODE OBS KARINE SAENZ MD Oct 20, 2018 12:06
[2018-10-20] MEDS: IPRATRPIUM/ALBUTEROL 0.5/2.5MG 3 ML NEBU. NEB SCH ×3 (12:24→20:33)
[2018-10-20] MEDS ORDERED: CYCLOBENZAPRINE 10 MG TABLET. PO PRN (12:30)
[2018-10-20 13:14] VITALS: BP 122/79
--- NOTE | 2018-10-20 13:33 | PDOC2 ---
AALIYAH VO CELL INSPECTOR 10/20/18 1333: CARDIAC CONSULT DATE OF CONSULT Date of Consult DATE: 10/20/18 TIME: 13:29 REASON FOR CONSULT Reason for Consult: Chest pain REFERRING PHYSICIAN Referring Physician: Dr. Maria SOURCE Source: Chart review, Patient HISTORY OF PRESENT ILLNESS HISTORY OF PRESENT ILLNESS This is a 53 yo female who presented secondary to chest pain. Patient reports she was at work this morning and developed sudden onset on central chest pressure/heaviness. Radiated down her left arm. Was associated with diaphoresis, dizziness, nausea, and shortness of breath. No specific worsening or relieving factors. Called EMS as pain persisted. Pain was relieved with nitro x2 in ED. Has had no further pain, but reports she feels extremely fatigued. Reports she has been more fatigued, tired for the last week. No history of CAD. 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 PAST MEDICAL HISTORY Cardiovascular: HTN, Hyperlipidemia Pulmonary: Pneumonia GI: GERD Heme/Onc: Anemia NOS Psych: Anxiety, Depression Endocrine: Diabetes PAST SURGICAL HISTORY Past Surgical History: Cholecystectomy, Hernia Repair, Hysterectomy, Other (neck surgery ) FAMILY HISTORY Family History: Family History Unknown SOCIAL HISTORY Smoke: Quit (3 weeks ago ) ALCOHOL: none Drugs: None Lives: with Family CURRENT MEDICATIONS CURRENT MEDICATIONS Current Medications Medications (Trade) Dose Ordered Sig/Teagan Route PRN Reason Start Time Stop Time Status Last Admin Dose Admin Nitroglycerin (Nitrostat) 0.4 mg 1X STAT SL 10/20/18 10:07 10/20/18 10:11 DC 10/20/18 10:18 Lorazepam (Ativan Inj) 1 mg 1X ONCE IV 10/20/18 11:30 10/20/18 11:31 DC 10/20/18 11:27 Ondansetron HCl (Zofran) 4 mg 1X ONCE IV 10/20/18 11:30 10/20/18 11:31 DC 10/20/18 11:27 Albuterol/ Ipratropium (Duoneb) 3 ml RTQID NEB 10/20/18 12:00 10/20/18 12:24 ALLERGIES ALLERGIES: Coded Allergies: No Known Medication Allergies (Verified Allergy, Unknown, 10/20/18) morphine (Verified Adverse Reaction, Intermediate, "LOOPY AND MEAN", 10/20/18) ROS Review of System 14 point ROS conducted with pertinent positives noted above in HPI. PHYSICAL EXAM General: Alert, Oriented X3, Cooperative, No acute distress HEENT: Atraumatic, Mucous membr. moist/pink Lungs: Clear to auscultation, Normal air movement Heart: Regular rate, Normal S1, Normal S2 Abdomen: Soft, No tenderness Extremities: No edema, Normal pulses Skin: No significant lesion Neuro: Normal speech, Sensation intact Psych/Mental Status: Mental status NL, Mood NL MUSCULOSKELETAL: No deformity VITALS/I&O VITALS/I&O: Vital Signs Date Time Temp Pulse Resp B/P (MAP) Pulse Ox O2 Delivery O2 Flow Rate FiO2 10/20/18 13:19 Room Air 10/20/18 13:14 98.4 90 18 122/79 (93) 95 98.4 LABS Lab: Laboratory Tests Test 10/20/18 10:11 White Blood Count 9.6 x10^3/uL (4.0-11.0) Red Blood Count 3.96 x10^6/uL (3.50-5.40) Hemoglobin 11.3 g/dL (12.0-15.5) L Hematocrit 34.1 % (36.0-47.0) L Mean Corpuscular Volume 86 fL (79-100) Mean Corpuscular Hemoglobin 29 pg (25-35) Mean Corpuscular Hemoglobin Concent 33 g/dL (31-37) Red Cell Distribution Width 17.6 % (11.5-14.5) H Platelet Count 360 x10^3/uL (140-400) Neutrophils (%) (Auto) 54 % (31-73) Lymphocytes (%) (Auto) 37 % (24-48) Monocytes (%) (Auto) 7 % (0-9) Eosinophils (%) (Auto) 2 % (0-3) Basophils (%) (Auto) 0 % (0-3) Neutrophils # (Auto) 5.2 x10^3/uL (1.8-7.7) Lymphocytes # (Auto) 3.5 x10^3/uL (1.0-4.8) Monocytes # (Auto) 0.7 x10^3/uL (0.0-1.1) Eosinophils # (Auto) 0.2 x10^3/uL (0.0-0.7) Basophils # (Auto) 0.0 x10^3/uL (0.0-0.2) Prothrombin Time 11.7 SEC (11.7-14.0) Prothrombin Time INR 0.9 (0.8-1.1) D-Dimer (Keiry) 0.36 ug/mlFEU (0.00-0.50) Sodium Level 141 mmol/L (136-145) Potassium Level 4.4 mmol/L (3.5-5.1) Chloride Level 104 mmol/L (98-107) Carbon Dioxide Level 29 mmol/L (21-32) Anion Gap 8 (6-14) Blood Urea Nitrogen 13 mg/dL (7-20) Creatinine 1.0 mg/dL (0.6-1.0) Estimated GFR (Cockcroft-Gault) 57.8 BUN/Creatinine Ratio 13 (6-20) Glucose Level 107 mg/dL (70-99) H Calcium Level 9.0 mg/dL (8.5-10.1) Magnesium Level 1.7 mg/dL (1.8-2.4) L Total Bilirubin 0.3 mg/dL (0.2-1.0) Aspartate Amino Transferase (AST) 37 U/L (15-37) Alanine Aminotransferase (ALT) 48 U/L (14-59) Alkaline Phosphatase 111 U/L (46-116) Creatine Kinase 66 U/L (26-192) Troponin I Quantitative < 0.017 ng/mL (0.000-0.055) BZ-Chs-Q-Type Natriuretic Peptide 17 pg/mL (0-124) Total Protein 7.4 g/dL (6.4-8.2) Albumin 3.2 g/dL (3.4-5.0) L Albumin/Globulin Ratio 0.8 (1.0-1.7) L Lipase 72 U/L (73-393) L Laboratory Tests 10/20/18 10:11 Laboratory Tests 10/20/18 10:11 ECHOCARDIOGRAM ECHOCARDIOGRAM <Conclusion> Left ventricle systolic function is low normal. The Ejection Fraction is 50%. Transmitral Doppler flow pattern is Grade I-abnormal relaxation pattern. There is mild concentric left ventricular hypertrophy. The left atrium size is normal. The right atrium size is normal. Doppler and Color Flow revealed mild aortic regurgitation. Doppler and Color-flow revealed mild mitral regurgitation. The tricuspid valve is normal in structure and function. The pulmonic valve is not well visualized. There is no evidence of significant pericardial effusion. DATE: 06/07/17 1712 ASSESSMENT/PLAN ASSESSMENT/PLAN 1. Chest pain; concerns for UA; initial troponin negative. 2. Hypertension; controlled 3. Hyperlipidemia 4. Diabetes, II 5. Hypomagnesemia 6. Recent PNA Recommendations ASA Trend troponin Echo to assess LV systolic function Lipid panel Discussed further ischemic evaluation with stress test versus heart cath given symptomatology/risk factors, patient would like to proceed with cardiac cath for definitive evaluation NPO p MN Will proceed with tomorrow morning. KARLA PALAFOX MD 10/20/18 7581: CARDIAC CONSULT ASSESSMENT/PLAN ASSESSMENT/PLAN Pt. seen and examined. Agree with above Roll Finisher note. 53 y.o with multiple risk factors and unstable angina Will plan for LHC in a.m. Discussed r/b/a to procedure. patient willing to proceed AALIYAH VO APRN Oct 20, 2018 13:33 KARLA PALAFOX MD Oct 20, 2018 23:05
[2018-10-20 13:54] LABS: CHOLESTEROL/HDL RATIO 5.5
--- NOTE | 2018-10-20 14:55 | CARD ---
MR#: [id number] Date of Study: 10/20/2018 Ordering Physician: AALIYAH VO, Referring Physician: AALIYAH VO, Tech: Ericka Will MOHIT APPROVED REPORT EXAM: Two-dimensional and M-mode echocardiogram with Doppler and color Doppler. Other Information Quality : AverageHR: 91bpm Rhythm : NSR INDICATION Chest Pain 2D DIMENSIONS RVDd3.2 (2.9-3.5cm)Left Atrium(2D)2.8 (1.6-4.0cm) IVSd1.2 (0.7-1.1cm)Aortic Root(2D)3.0 (2.0-3.7cm) LVDd3.4 (3.9-5.9cm)LVOT Diameter2.0 (1.8-2.4cm) PWd1.0 (0.7-1.1cm)LVDs2.2 (2.5-4.0cm) FS (%) 34.6 %SV30.2 ml M-Mode DIMENSIONS Left Atrium(MM)3.55 (2.5-4.0cm)Aortic Root3.14 (2.2-3.7cm) Aortic Valve AoV Peak Ken.120.7cm/sAoV VTI19.6cm AO Peak GR.5.8mmHgLVOT Peak Ken.93.7cm/s AO Mean GR.3mmHgAVA (VMAX)2.49cm2 Mitral Valve MV E Toxvjcnm31.2cm/sMV DECEL AEXJ448rm MV A Zlfbakfd912.3cm/sE/A Ratio0.8 Pulmonary Valve PV Peak Ufjyvsly04.7cm/s LEFT VENTRICLE The left ventricle is normal size. Proximal septal thickening is noted. The left ventricular systolic function is normal and the ejection fraction is within normal range. The Ejection Fraction is 60-65% . There is normal LV segmental wall motion. Transmitral Doppler flow pattern is Grade I-abnormal rela xation pattern. No left ventricle thrombus noted on this study. RIGHT VENTRICLE The right ventricle is normal size. There is normal right ventricular wall thickness. The right ventr icular systolic function is normal. ATRIA The left atrium size is normal. The right atrium size is normal. The interatrial septum is intact wit h no evidence for an atrial septal defect or patent foramen ovale as noted on 2-D or Doppler imaging. AORTIC VALVE The aortic valve is normal in structure and function. The aortic valve is trileaflet. Doppler and Col or Flow revealed no significant aortic regurgitation. There is no significant aortic valvular stenosi s. There is no aortic valvular vegetation. MITRAL VALVE The mitral valve is normal in structure and function. There is no evidence of mitral valve prolapse. There is no mitral valve stenosis. Doppler and Color Flow revealed no mitral valve regurgitation note d. TRICUSPID VALVE The tricuspid valve is normal in structure and function. Doppler and Color Flow revealed no tricuspid valve regurgitation noted. There is no tricuspid valve prolapse or vegetation. There is no tricuspid valve stenosis. PULMONIC VALVE The pulmonic valve is not well visualized. GREAT VESSELS The aortic root is normal in size. The ascending aorta is normal in size. The IVC is normal in size a nd collapses >50% with inspiration. PERICARDIAL EFFUSION There is no evidence of significant pericardial effusion. Critical Notification Critical Value: No <Conclusion> The left ventricle is normal size. The left ventricular systolic function is normal and the ejection fraction is within normal range. The Ejection Fraction is 60-65%. There is no significant aortic valvular stenosis. Doppler and Color Flow revealed no significant aortic regurgitation. Doppler and Color Flow revealed no mitral valve regurgitation noted. Doppler and Color Flow revealed no tricuspid valve regurgitation noted. Signed by : Osvaldo Hernandez MD Electronically Approved : 10/20/2018 14:55:00
[2018-10-20 15:00] VITALS: BP 117/60
[2018-10-20 19:44] VITALS: BP 128/56
[2018-10-20] MEDS: DOCUSATE SODIUM 100 MG CAPSULE. PO SCH (19:48)
[2018-10-20] MEDS ORDERED: ATORVASTATIN CALCIUM 40 MG TABLET. PO SCH (21:00)
[2018-10-20 22:25] VITALS: BP 123/55
[2018-10-21] VITALS (14 sets, daily range): BP systolic 99–138; BP diastolic 56–75
[2018-10-21 05:14] LABS: HEMOGLOBIN A1C 6.2 % (4.8-5.6)
[2018-10-21] MEDS: PANTOPRAZOLE 40 MG TABLET.DR. PO SCH ×2 (07:20→14:51)
[2018-10-21] MEDS: metFORMIN 500 MG TABLET PO SCH ×2 (07:21→12:16)
[2018-10-21] MEDS ORDERED: IODIXANOL 320 MG/ML 100 ML VIAL. ONE (07:36)
[2018-10-21] MEDS ORDERED: LIDOCAINE 1% PF 2 ML VIAL. ONE (07:36)
[2018-10-21] MEDS ORDERED: HEPARIN for ARTERIAL LINE 1,500 ML ONE (07:36)
[2018-10-21] MEDS: IPRATRPIUM/ALBUTEROL 0.5/2.5MG 3 ML NEBU. NEB SCH ×3 (08:00→15:28)
[2018-10-21] MEDS ORDERED: metFORMIN 500 MG TABLET PO SCH (08:00)
[2018-10-21] MEDS ORDERED: NON FORMULARY ITEM (Icosapent Ethyl (Vascepa) 1 GM) PO SCH (08:00)
[2018-10-21] MEDS ORDERED: ASPIRIN ENTERIC COATED 81 MG TABLET.DR. PO SCH (08:00)
[2018-10-21] MEDS: INSULIN LISPRO 300 UNITS/3 ML VIAL. SQ SCH ×2 (08:00→12:00)
[2018-10-21] MEDS ORDERED: DULoxetine HCL 30 MG CAPSULE.DR PO SCH (09:00)
[2018-10-21] MEDS ORDERED: buPROPion XL 150 MG TAB.ER.24H. PO SCH (09:00)
[2018-10-21] MEDS ORDERED: OMEGA-3 FATTY ACIDS/FISH OIL 1,000 MG CAPSULE. PO SCH (09:00)
[2018-10-21] MEDS ORDERED: HEPARIN for IV BOLUS 10,000 UNIT/10 ML VIAL. ONE (09:41)
[2018-10-21] MEDS ORDERED: MIDAZOLAM HCL/PF 2 MG/2 ML VIAL. ONE (09:41)
[2018-10-21] MEDS ORDERED: NITROGLYCERIN 200 MCG/2 ML SYRINGE FOR CATH/VASC LAB. ONE (09:41)
[2018-10-21] MEDS ORDERED: fentaNYL PF VIAL 100 MCG/2 ML VIAL ONE (09:41)
[2018-10-21] MEDS ORDERED: VERAPAMIL 5 MG/2 ML VIAL. ONE (09:41)
[2018-10-21] MEDS ORDERED: LIDOCAINE 1% Multi-Dose 20 ML VIAL. ONE (10:02)
[2018-10-21] MEDS ORDERED: LIDOCAINE 1% PF 2 ML VIAL. INJ ONE (10:15)
[2018-10-21] MEDS ORDERED: MIDAZOLAM HCL/PF 2 MG/2 ML VIAL. IV ONE (10:15)
[2018-10-21] MEDS ORDERED: IODIXANOL 320 MG/ML 100 ML VIAL. IART ONE (10:15)
[2018-10-21] MEDS ORDERED: NITROGLYCERIN 200 MCG/2 ML SYRINGE FOR CATH/VASC LAB. IART ONE (10:15)
[2018-10-21] MEDS ORDERED: HEPARIN for IV BOLUS 10,000 UNIT/10 ML VIAL. IART ONE (10:15)
[2018-10-21] MEDS ORDERED: VERAPAMIL 5 MG/2 ML VIAL. IART ONE (10:15)
[2018-10-21] MEDS ORDERED: fentaNYL PF VIAL 100 MCG/2 ML VIAL IV ONE (10:15)
[2018-10-21] MEDS: DOCUSATE SODIUM 100 MG CAPSULE. PO SCH (11:12)
--- NOTE | 2018-10-21 12:11 | NUR ---
SS following for discharge planning. SS reviewed pt chart. Pt is from home with spouse and is currently on room air. No discharge needs noted at this time. SS will continue to follow for discharge planning.
--- NOTE | 2018-10-21 12:53 | CARD ---
MR#: [id number] Date of Study: 10/21/2018 Ordering Physician: KARLA DIAS, Referring Physician: KARLA DIAS, Tech: Lucy Santana APPROVED REPORT Technologist: Lucy Santana Nurse: Wanda Mcarthur R.N. Procedure(s) performed: FL TIME: 8.5 MINS DOSE: 67 GY/CM2 CONTRAST: 96 ML SEDATION: 39 MINS HISTORY The patient is a 53 year-old female with a history of : hypertension, dyslipidemia. INDICATION The indication(s) include : unstable angina . CSHA Clinical Frailty Scale CSHA Clinical Frailty Scale: Well Heart Failure Heart Failure: No PROCEDURE NARRATIVE INFORMED CONSENT: After explaining the risks and benefits of the procedure and alternatives, informed consent was obtained. The patient was brought electively to the cardiac catheterization lab. A timeout was performed confi rming the patient's name, date of , procedure, and site of procedure. All necessary personnel w ere wearing the appropriate protective equipment and radiation monitor devices. (See nursing notes for medications administered). ACCESS: The right wrist was sterilely prepped and draped in the usual fashion. The right wrist was infiltrat ed with 1 mL of 2% lidocaine for subcutaneous anesthesia. A 6 [place] Terumo glide sheath was inserte d into the right radial artery without difficulty. CORONARY ANGIOGRAPHY: Right and left coronary angiography was performed using a 6Fr TIG 4.0 catheter and a 5FR AL 1 and JL 3.5 catheters. Left ventricular end diastolic pressure was obtained with a pigtail catheter and pul lback was performed after left ventriculography. All catheter exchanges and advancements were perfor med over a guidewire. CLOSURE: At case completion the right radial sheath was removed and a Terumo radial band was applied with 13 m l of air. COMPLICATIONS: The patient tolerated the procedure well and there were no immediate complications. FINDINGS: HEMODYNAMICS: LVEDP 12 mm Hg No gradient on LV to aortic pullback. AO: 128/78 LEFT VENTRICULOGRAM: Deferred due to renal insufficiency. CORONARY ANGIOGRAPHY: LM is a large caliber vessel with normal angiographic appearance. LAD is a large caliber vessel that tapers quickly to a small caliber vessel without significant disea se. Ramus is a moderate caliber vessel with normal angiographic apeparance. LCx is a moderate caliber non-dominant vessel with normal angiographic appearance. RCA is a large caliber dominant vessel with normal angiographic appearance. There was catheter induce d spasm but no significant stenosis. RPDA and RPL are moderate caliber vessels with normal angiographic appearance. Conclusion 1. Normal left sided filling pressures. 2. No significant obstructive coronary disease. 3. Probable microvascular angina. Recommendations Aggressive Medical Therapy Signed by : Karla Dias, Electronically Approved : 10/21/2018 12:52:47
[2018-10-21] MEDS ORDERED: ALPR0.254 PO (13:07)
[2018-10-21] MEDS ORDERED: ATOR40TA59 PO (13:07)
[2018-10-21] MEDS ORDERED: ASPI-612 PO (13:07)
[2018-10-21] MEDS ORDERED: NITR0.4T22 SL (13:09)
--- NOTE | 2018-10-21 13:11 | PDOC3 ---
Discharge Summary Visit Information Date of Admission: Oct 20, 2018 Date of Discharge: Oct 21, 2018 Admitting Diagnosis Comment: Anxiety CP s/p CLEAN cath Final Diagnosis Problems Medical Problems: (1) Acute chest pain Status: Acute (2) Anemia Status: Acute (3) Anxiety about health Status: Acute Brief Hospital Course Allergies Allergies Coded Allergies Type Severity Reaction Last Updated Verified No Known Medication Allergies Allergy Unknown 10/20/18 Yes morphine Adverse Reaction Intermediate "LOOPY AND MEAN" 10/20/18 Yes Vital Signs Vital Signs Date Time Temp Pulse Resp B/P (MAP) Pulse Ox O2 Delivery O2 Flow Rate FiO2 10/21/18 12:55 89 18 98 Room Air 10/21/18 11:00 97.7 116/59 (78) 97.7 10/21/18 10:27 2.0 Lab Results Laboratory Tests Test 10/20/18 10:11 10/20/18 14:10 10/20/18 16:38 10/20/18 17:05 White Blood Count 9.6 x10^3/uL (4.0-11.0) Red Blood Count 3.96 x10^6/uL (3.50-5.40) Hemoglobin 11.3 g/dL (12.0-15.5) Hematocrit 34.1 % (36.0-47.0) Mean Corpuscular Volume 86 fL (79-100) Mean Corpuscular Hemoglobin 29 pg (25-35) Mean Corpuscular Hemoglobin Concent 33 g/dL (31-37) Red Cell Distribution Width 17.6 % (11.5-14.5) Platelet Count 360 x10^3/uL (140-400) Neutrophils (%) (Auto) 54 % (31-73) Lymphocytes (%) (Auto) 37 % (24-48) Monocytes (%) (Auto) 7 % (0-9) Eosinophils (%) (Auto) 2 % (0-3) Basophils (%) (Auto) 0 % (0-3) Neutrophils # (Auto) 5.2 x10^3/uL (1.8-7.7) Lymphocytes # (Auto) 3.5 x10^3/uL (1.0-4.8) Monocytes # (Auto) 0.7 x10^3/uL (0.0-1.1) Eosinophils # (Auto) 0.2 x10^3/uL (0.0-0.7) Basophils # (Auto) 0.0 x10^3/uL (0.0-0.2) Prothrombin Time 11.7 SEC (11.7-14.0) Prothromb Time International Ratio 0.9 (0.8-1.1) D-Dimer (Keiry) 0.36 ug/mlFEU (0.00-0.50) Sodium Level 141 mmol/L (136-145) Potassium Level 4.4 mmol/L (3.5-5.1) Chloride Level 104 mmol/L (98-107) Carbon Dioxide Level 29 mmol/L (21-32) Anion Gap 8 (6-14) Blood Urea Nitrogen 13 mg/dL (7-20) Creatinine 1.0 mg/dL (0.6-1.0) Estimated GFR (Cockcroft-Gault) 57.8 BUN/Creatinine Ratio 13 (6-20) Glucose Level 107 mg/dL (70-99) Hemoglobin A1c 6.2 % (4.8-5.6) Calcium Level 9.0 mg/dL (8.5-10.1) Magnesium Level 1.7 mg/dL (1.8-2.4) Total Bilirubin 0.3 mg/dL (0.2-1.0) Aspartate Amino Transf (AST/SGOT) 37 U/L (15-37) Alanine Aminotransferase (ALT/SGPT) 48 U/L (14-59) Alkaline Phosphatase 111 U/L (46-116) Creatine Kinase 66 U/L (26-192) Troponin I Quantitative < 0.017 ng/mL (0.000-0.055) < 0.017 ng/mL (0.000-0.055) < 0.017 ng/mL (0.000-0.055) KR-Mcz-Y-Type Natriuretic Peptide 17 pg/mL (0-124) Total Protein 7.4 g/dL (6.4-8.2) Albumin 3.2 g/dL (3.4-5.0) Albumin/Globulin Ratio 0.8 (1.0-1.7) Triglycerides Level 95 mg/dL (0-150) Cholesterol Level 277 mg/dL (0-200) LDL Cholesterol, Calculated 208 mg/dL (0-100) VLDL Cholesterol, Calculated 19 mg/dL (0-40) Non-HDL Cholesterol Calculated 227 mg/dL (0-129) HDL Cholesterol 50 mg/dL (40-60) Cholesterol/HDL Ratio 5.5 Lipase 72 U/L (73-393) Glucose (Fingerstick) 111 mg/dL (70-99) Test 10/20/18 20:40 10/21/18 08:04 10/21/18 11:38 Glucose (Fingerstick) 257 mg/dL (70-99) 98 mg/dL (70-99) 114 mg/dL (70-99) Laboratory Tests Test 10/20/18 14:10 10/20/18 16:38 10/20/18 17:05 10/20/18 20:40 Troponin I Quantitative < 0.017 ng/mL (0.000-0.055) < 0.017 ng/mL (0.000-0.055) Glucose (Fingerstick) 111 mg/dL (70-99) 257 mg/dL (70-99) Test 10/21/18 08:04 10/21/18 11:38 Glucose (Fingerstick) 98 mg/dL (70-99) 114 mg/dL (70-99) Brief Hospital Course Ms. Najera is a 53 old [sex] who presented with [ ] History of Present Illness 53 white female, cp at rest while at desk in computer, had some soa, anxiety attack seems to be, claims was nauseated etc, LAsted an hr, got better with time? No personal hx CAD, last MPI DR. Otero 10 yrs ago, normal., CXR EKG and first trop reassuring, CP free and non toxic appearing as I see her in ER. FULL CODE Dw fam members at bedside No identifiable precip or alleviating factor, no radiation to jaw or left shoulder She field shave risk factors, DM and HTN, [id number], BS ok here, ALso some depression on meds ( which i verified with her) COIRSE; Clean cath, I willl rx some xanax helped her, plus NTG SL. She asks about home TERI meds, but her BP Here in house has been very good, no need for anti hypertensives on dc,FF up BP with PCP if elev BP checks persist at home Discharge Information Condition at Discharge: Improved, Stable Disposition/Orders: D/C to Home Scheduled Amoxicillin/Potassium Clav (Augmentin 875-125 Tablet) 1 Each Tablet, 1 TAB PO BID for PNEUMONIA, #20 Prescribed by: CRISTIAN BELLO MD on 10/04/181500 Last Action: HELD on 10/20/181200 by KARINE SAENZ Aspirin (Aspirin Ec) 81 Mg Tablet.dr, 81 MG PO DAILYWBKFT for primary prevention, #90 Prescribed by: KARINE SAENZ on 10/21/18 1307 Atorvastatin Calcium (Atorvastatin Calcium) 40 Mg Tablet, 40 MG PO QHS for lipids, #90 Prescribed by: KARINE SAENZ on 10/21/18 1307 Bupropion Hcl (Wellbutrin Xl) 300 Mg Tab.er.24h, 1 TAB PO DAILY, #90 Ref 3 (Reported) Entered as Reported by: YELTIZA DOE on 05/28/172132 Last Action: Converted on 10/20/181200 by KARINE SAENZ Docusate Sodium (Colace) 100 Mg Capsule, 100 MG PO BID for PREVENT CONSTIPATION for 10 Days, #20 Prescribed by: CRISTIAN BELLO MD on 10/04/181500 Last Action: Continued on 10/20/181200 by KARINE SAENZ Duloxetine Hcl (Cymbalta) 60 Mg Capsule., 1 CAP PO DAILY, #90 Ref 3 (Reported) Entered as Reported by: YELITZA DOE on 05/28/172130 Last Action: Converted on 10/20/181200 by KARINE SAENZ Icosapent Ethyl (Vascepa) 1 Gm Capsule, 1 GM PO DAILY08 for Cholesterol, (Reported) Entered as Reported by: GISELL JARRETT on 09/29/182140 Last Action: Converted on 10/20/181200 by KARINE SAENZ Ipratropium/Albuterol Sulfate (Duoneb 0.5-3(2.5) Mg/3 Ml) 3 Ml Ampul.neb, 3 ML NEB RTQID for 30 Days, #120 Prescribed by: CRISTIAN BELLO MD on 05/30/17 1320 Last Action: Continued on 10/20/181200 by KARINE SAENZ Lansoprazole (Prevacid) 30 Mg Capsule.dr, 1 CAP PO DAILY, #30 Ref 3 (Reported) Entered as Reported by: YELITZA DOE on 05/28/172133 Last Action: Converted on 10/20/181200 by KARINE SAENZ Linezolid (Zyvox) 600 Mg Tablet, 600 MG PO BID for PNEUMONIA for 10 Days, #20 Prescribed by: CRISTIAN BELLO MD on 10/04/181500 Last Action: HELD on 10/20/181200 by KARINE SAENZ Nystatin (Nystatin) 100,000 Unit/1 Ml Oral.susp, 5 ML SWSW [id number] for THRUSH for 10 Days, #240 Prescribed by: CRISTIAN BELLO MD on 10/04/181500 Last Action: HELD on 10/20/181200 by KARINE SAENZ [place]-3 Acid Ethyl Esters (Lovaza) 1 Gm Capsule, 1 GM PO DAILY08 for supplement, (Reported) Entered as Reported by: YELITZA DOE on 05/28/172132 Last Action: Converted on 10/20/181200 by KARINE SAENZ Scheduled PRN Alprazolam (Alprazolam) 0.25 Mg Tablet, 0.25 MG PO PRN Q8HRS PRN for ANXIETY / AGITATION, #60 Prescribed by: KARINE SAENZ on 10/21/18 1307 Benzocaine/Menthol (Sore Throat Lozenge) 1 Each Lozenge, 1 IRVIN PO PRN Q2HRS PRN for SORE THROAT for 10 Days, #30 Prescribed by: CRISTIAN BELLO MD on 10/04/181500 Last Action: Continued on 10/20/181200 by KARINE SAENZ Guaifenesin/Dextromethorphan (Guaifenesin Dm Syrup) 5 Ml Syrup, 10 ML PO PRN Q4HRS PRN for COUGH for 10 Days, #120 Prescribed by: CRISTIAN BELLO MD on 10/04/181500 Last Action: Continued on 10/20/181200 by KARINE SAENZ Ibuprofen (Ibuprofen) 400 Mg Tablet, 400 MG PO PRN TID PRN for INFLAMMATION, (Reported) Entered as Reported by: YELITZA DOE on 05/28/172135 Last Action: Continued on 10/20/181200 by KARINE SAENZ Melatonin (Melatonin) 3 Mg Tablet, 10 MG PO HS PRN for INSOMNIA, (Reported) Entered as Reported by: YELITZA DOE on 05/28/172135 Last Action: Converted on 10/20/181200 by KARINE SAENZ Metformin Hcl (Metformin Hcl) 500 Mg Tablet, 150 MG PO BID PRN for diabetes, (Reported) Entered as Reported by: GISELL JARRETT on 09/29/182140 Last Action: Continued on 10/20/181200 by KARINE SANEZ Nitroglycerin (NITROGLYCERIN SubLingual) 0.4 Mg Tab.subl, 0.4 MG SL PRN Q5MIN PRN for CHEST PAIN for 30 Days Prescribed by: KARINE SAENZ on 10/21/18 1309 Orphenadrine Citrate (Orphenadrine Citrate) 100 Mg Tablet.er, 1 TAB PO BID PRN for MUSCLE PAIN for 10 Days, #20 Ref 0 Prescribed by: JOSEFINA CARBAJAL APRN on 10/08/17 1406 Last Action: Converted on 10/20/181200 by KARINE GARCIA MD Oct 21, 2018 13:11
[2018-10-21] MEDS ORDERED: ONDANSETRON PF 4 MG/2 ML VIAL. IV PRN (15:15)
[2018-10-21] MEDS ORDERED: CALCIUM CARBONATE 500 MG TAB.CHEW PO PRN (15:30)
[2018-10-21] MEDS ORDERED: MAG HYDROX/ALUMINUM HYD/SIMETH 30 ML ORAL.SUSP PO PRN (15:30)
--- NOTE | 2018-10-21 16:19 | NUR ---
Discharge Note: YAKOV DUKE Discharge instructions and discharge home medications reviewed with Patient and a copy given. All questions have been answered and understanding verbalized. The following instructions and handouts were given: d/c instructions Discontinued lines and drains: Peripheral IV intact. Patient discharged to Home or Self Care with Spouse via Wheelchair
== END 2018-10-21 16:39 | disposition home or self-care (01) | DRG 287 ==
LOC: ER 09:48 → 2 NORTH 11:02
PROVIDERS: ADMIT Internal Medicine; ATTEND Internal Medicine
PROC: 4A023N7 Measurement of Cardiac Sampling and Pressure, Left Heart, Percutaneous Approach (ICD-10-PCS; principal; 2018-10-21)
PROC: B2111ZZ Fluoroscopy of Multiple Coronary Arteries using Low Osmolar Contrast (ICD-10-PCS; 2018-10-21)
DX: I20.0 Unstable angina (principal); F41.9 Anxiety disorder, unspecified; F32.9 Major depressive disorder, single episode, unspecified; E11.9 Type 2 diabetes mellitus without complications; E78.00 Pure hypercholesterolemia, unspecified; I10 Essential (primary) hypertension; K21.9 Gastro-esophageal reflux disease without esophagitis; D64.9 Anemia, unspecified; E78.5 Hyperlipidemia, unspecified; E83.42 Hypomagnesemia; Z90.710 Acquired absence of both cervix and uterus; Z90.49 Acquired absence of other specified parts of digestive tract; Z87.891 Personal history of nicotine dependence; Z79.899 Other long term (current) drug therapy; Z79.84 Long term (current) use of oral hypoglycemic drugs; Z87.01 Personal history of pneumonia (recurrent); Z88.5 Allergy status to narcotic agent
CPT/HCPCS: 36415; 71045; 80053; 80061; 82550; 82962; 83036; 83690; 83735; 83880; 84484; 85025; 85379; 85610; 93005; 93306; 93458; 94640; 94760; 99152; 99153; C1769; C1892; J1644; J1815; J2060; J2250; J2405; J3010; J3490; J7620; Q9967; G0378

== ENCOUNTER 2018-10-28 14:28 | Inpatient (IN) | payer BC ==
[~2018-10-28] VITALS: Ht 170.2 cm; Wt 94.5 kg
[~2018-10-28 14:28] MED LIST changes: +ALPR0.254 PO; +ASPI-612 PO; +ATOR40TA59 PO; -LINE600T PO; +LINE600T37 PO; -MELA3TAB2 PO; +MELA3TAB56 PO; +NITR0.4T22 SL
[2018-10-28] MEDS ORDERED: VANCOMYCIN PER PHARMACY MC ONE (16:00)
[2018-10-28] MEDS ORDERED: NITROGLYCERIN SUBLINGUAL 0.4 MG BOTTLE OF 25. SL PRN ×2 (16:00→23:00)
[2018-10-28] MEDS ORDERED: PIPERACILLIN/TAZOBACTAM 4.5 GM in IV NORMAL SALINE 100ML 100 ML IV ONE (16:00)
[2018-10-28] MEDS ORDERED: ACETAMINOPHEN 500 MG TABLET PO ONE (16:00)
[2018-10-28 16:06] LABS: BASO # 0.1 x10^3/uL (0.0-0.2); BASO % 1 % (0-3); EOS # 0.1 x10^3/uL (0.0-0.7); EOS % 0 % (0-3); HEMATOCRIT 34.8 % (36.0-47.0); HEMOGLOBIN 11.3 g/dL (12.0-15.5); LYMPH # 3.1 x10^3/uL (1.0-4.8); LYMPH % 14 % (24-48); MEAN CORPUSCULAR HEMOGLOBIN 28 pg (25-35); MEAN CORPUSCULAR HGB CONC 33 g/dL (31-37); MEAN CORPUSCULAR VOLUME 86 fL (79-100); MONO # 0.9 x10^3/uL (0.0-1.1); MONO % 4 % (0-9); NEUT # 18.6 x10^3/uL (1.8-7.7); NEUT % 82 % (31-73); PLATELET COUNT 296 x10^3/uL (140-400); RED BLOOD COUNT 4.04 x10^6/uL (3.50-5.40); RED CELL DISTRIBUTION WIDTH 17.8 % (11.5-14.5); WHITE BLOOD COUNT 22.9 x10^3/uL (4.0-11.0)
--- NOTE | 2018-10-28 16:12 | PHYS DOC ---
Past Medical History Past Medical History: Depression, Diabetes-Type II, GERD, High Cholesterol, Hypertension, Pneumonia, Other Additional Past Medical Histor: Autoimmune disease Past Surgical History: Cholecystectomy, Hysterectomy, Other Additional Past Surgical Histo: cervial surgery, CARDIAC CATH 10/20 Additional Information: PT REPORTS THAT SHE STOPPED SMOKING IN SEPTEMBER AFTER HAVING PNA Alcohol Use: Rarely Drug Use: None Adult General Chief Complaint Chief Complaint: DIZZY/LIGHT HEADED HPI HPI Patient is a 53 year old female with history of pneumonia, hypertension, diabetes type 2, depression, high cholesterol, who presents to the ED today with multiple complaints. Patient is complaining of body aches including a 6 out of 10 substernal chest pain that has been going on since yesterday. She is also complaining of a fever and a cough and shortness of breath on exertion since yesterday. She states she feels a whole body is sore. She describes the chest pain as sharp and intermittent. Denies any alleviating or relieving factors to her chest pain. She states she was admitted in the hospital for 6 days around September 29, 2018 for pneumonia. She states she's been following up with her lung doctor. She is complaining of dizziness that mostly occurred yesterday especially when she was running a fever. She states the dizziness was worse when she tried to get up. She states the dizziness is slightly better today. Review of Systems Review of Systems Constitutional: Reports fever and body aches Eyes: Denies change in visual acuity, redness, or eye pain [] HENT: Denies nasal congestion or sore throat [] Respiratory: Reports cough and shortness of breath [] Cardiovascular: Reports chest pain GI: Denies abdominal pain, nausea, vomiting, bloody stools or diarrhea [] : Denies dysuria or hematuria [] Musculoskeletal: Denies back pain or joint pain [] Integument: Denies rash or skin lesions [] Neurologic: Reports dizziness, denies focal weakness or sensory changes [] All other systems were reviewed and found to be within normal limits, except as documented in this note. Current Medications Current Medications Current Medications Medications (Trade) Dose Ordered Sig/Teagan Start Time Stop Time Status Last Admin Dose Admin Acetaminophen (Tylenol) 1,000 mg 1X ONCE 10/28/18 16:00 10/28/18 16:01 DC 10/28/18 16:22 1,000 MG Aspirin (Daren Aspirin) 325 mg 1X ONCE 10/28/18 16:30 10/28/18 16:31 DC 10/28/18 16:22 325 MG Fentanyl Citrate (Fentanyl 2ml Vial) 50 mcg PRN Q15MIN PRN 10/28/18 16:00 10/29/18 15:59 10/28/18 17:01 50 MCG Nitroglycerin (Nitrostat) 0.4 mg PRN Q5MIN PRN 10/28/18 16:00 10/29/18 15:59 10/28/18 16:22 0.4 MG Piperacillin Sod/ Tazobactam Sod 4.5 gm/Sodium Chloride 100 ml @ 200 mls/hr 1X ONCE 10/28/18 16:00 10/28/18 16:29 DC 10/28/18 16:22 200 MLS/HR Sodium Chloride 1,000 ml @ 1,860 mls/hr Q33M 10/28/18 15:50 10/28/18 16:50 DC 10/28/18 16:55 1,860 MLS/HR Vancomycin HCl (Vanco Per Pharmacy) 1 each 1X ONCE 10/28/18 16:00 10/28/18 16:01 UNV Vancomycin HCl 2 gm/Sodium Chloride 500 ml @ 250 mls/hr 1X ONCE 10/28/18 17:00 10/28/18 19:03 DC 10/28/18 16:58 250 MLS/HR Allergies Allergies Allergies Coded Allergies Type Severity Reaction Last Updated Verified No Known Medication Allergies Allergy Unknown 10/20/18 Yes morphine Adverse Reaction Intermediate "LOOPY AND MEAN" 10/20/18 Yes Physical Exam Physical Exam Constitutional: Well developed, well nourished, no acute distress, non-toxic appearance. [] HENT: Normocephalic, atraumatic, bilateral external ears normal, oropharynx moist, no oral exudates, nose normal. [] Eyes: PERRLA, EOMI, conjunctiva normal, no discharge. [] Neck: Normal range of motion, no tenderness, supple, no stridor. [] Cardiovascular:Heart rate regular rhythm, no murmur [] Lungs & Thorax: Diminished breath sounds to posterior lung bases Abdomen: Bowel sounds normal, soft, no tenderness, no masses, no pulsatile masses. [] Skin: Warm, dry, no erythema, no rash. [] Back: No tenderness, no CVA tenderness. [] Extremities: No tenderness, no cyanosis, no clubbing, ROM intact, no edema. [] Neurologic: Alert and oriented X 3, normal motor function, normal sensory function, no focal deficits noted. Cranial nerves II through XII intact Psychologic: Affect normal, judgement normal, mood normal. [] Current Patient Data Vital Signs Vital Signs Date Time Temp Pulse Resp B/P (MAP) Pulse Ox O2 Delivery O2 Flow Rate FiO2 10/28/18 17:05 90 20 95 10/28/18 17:01 Nasal Cannula 2.0 10/28/18 16:22 114/51 10/28/18 15:23 98.1 98.1 Lab Values Laboratory Tests Test 10/28/18 15:46 10/28/18 17:07 White Blood Count 22.9 x10^3/uL (4.0-11.0) H Red Blood Count 4.04 x10^6/uL (3.50-5.40) Hemoglobin 11.3 g/dL (12.0-15.5) L Hematocrit 34.8 % (36.0-47.0) L Mean Corpuscular Volume 86 fL (79-100) Mean Corpuscular Hemoglobin 28 pg (25-35) Mean Corpuscular Hemoglobin Concent 33 g/dL (31-37) Red Cell Distribution Width 17.8 % (11.5-14.5) H Platelet Count 296 x10^3/uL (140-400) Neutrophils (%) (Auto) 82 % (31-73) H Lymphocytes (%) (Auto) 14 % (24-48) L Monocytes (%) (Auto) 4 % (0-9) Eosinophils (%) (Auto) 0 % (0-3) Basophils (%) (Auto) 1 % (0-3) Neutrophils # (Auto) 18.6 x10^3/uL (1.8-7.7) H Lymphocytes # (Auto) 3.1 x10^3/uL (1.0-4.8) Monocytes # (Auto) 0.9 x10^3/uL (0.0-1.1) Eosinophils # (Auto) 0.1 x10^3/uL (0.0-0.7) Basophils # (Auto) 0.1 x10^3/uL (0.0-0.2) Segmented Neutrophils % 81 % (35-66) H Band Neutrophils % 5 % (0-9) Lymphocytes % 11 % (24-48) L Monocytes % 2 % (0-10) Myelocytes % 1 % (0-0) H Toxic Granulation Marked Platelet Estimate Adequate (ADEQUATE) Polychromasia Slight Anisocytosis Slight Prothrombin Time 13.1 SEC (11.7-14.0) Prothrombin Time INR 1.0 (0.8-1.1) Sodium Level 143 mmol/L (136-145) Potassium Level 3.5 mmol/L (3.5-5.1) Chloride Level 103 mmol/L (98-107) Carbon Dioxide Level 30 mmol/L (21-32) Anion Gap 10 (6-14) Blood Urea Nitrogen 9 mg/dL (7-20) Creatinine 1.0 mg/dL (0.6-1.0) Estimated GFR (Cockcroft-Gault) 57.8 BUN/Creatinine Ratio 9 (6-20) Glucose Level 103 mg/dL (70-99) H Lactic Acid Level 1.3 mmol/L (0.4-2.0) Calcium Level 8.9 mg/dL (8.5-10.1) Magnesium Level 1.5 mg/dL (1.8-2.4) L Total Bilirubin 0.6 mg/dL (0.2-1.0) Aspartate Amino Transferase (AST) 23 U/L (15-37) Alanine Aminotransferase (ALT) 28 U/L (14-59) Alkaline Phosphatase 124 U/L (46-116) H Creatine Kinase 63 U/L (26-192) Creatine Kinase MB (Mass) < 0.5 ng/mL (0.0-3.6) Creatine Kinase MB Relative Index % (0-4) Troponin I Quantitative < 0.017 ng/mL (0.000-0.055) MF-Wuk-I-Type Natriuretic Peptide 231 pg/mL (0-124) H Total Protein 7.2 g/dL (6.4-8.2) Albumin 3.0 g/dL (3.4-5.0) L Albumin/Globulin Ratio 0.7 (1.0-1.7) L Procalcitonin 2.42 ng/mL (0.00-0.10) H Thyroid Stimulating Hormone (TSH) 1.004 uIU/mL (0.358-3.74) Influenza Type A Antigen Negative (NEGATIVE) Influenza Type B Antigen Negative (NEGATIVE) Laboratory Tests 10/28/18 15:46 Laboratory Tests 10/28/18 15:46 EKG EKG [address] Ray sinus rhythm Hr 100 no STEMI[] Radiology/Procedures Radiology/Procedures PROCEDURE: CHEST PA & LATERAL Chest radiograph 10/28/2018 3:50 PM INDICATION: Fever, cough and chest pain COMPARISON: 10/20/2018 TECHNIQUE: Frontal and lateral views of the chest are provided. FINDINGS: The cardiomediastinal silhouette is within normal limits. There are no pleural effusions. There is no pulmonary vascular congestion. There is no pneumothorax. Bibasilar interstitial opacities may represent bibasilar pulmonary infiltrates in the appropriate clinical setting. Anterior cervical discectomy and fusion hardware is partially profiled within the lower cervical spine. IMPRESSION: Bibasilar interstitial opacities are new from the prior examination and may represent pulmonary infiltrates in the appropriate clinical setting. Short-term follow-up radiographs may be of benefit. Electronically signed by: Linda Vazquez MD (10/28/2018 4:22 PM) [facility] DICTATED and SIGNED BY: LINDA VAZQUEZ MD DATE: 10/28/18 1622 []PROCEDURE: CT CHEST WO CONTRAST Exam: CT of chest without contrast INDICATION: Abnormal chest x-ray, cough TECHNIQUE: Sequential axial images through the chest obtained without IV contrast. Sagittal and coronal reformatted images were reconstructed from the axial data and reviewed. Comparisons: Chest x-ray same day FINDINGS: Visualized portions of the thyroid are unremarkable. No enlarged mediastinal lymph nodes are identified. Heart size is normal. No pericardial effusion. Thoracic aorta has a normal course and caliber. Pulmonary artery is not enlarged. Airways are patent. There is patchy areas of consolidation noted within the lower lobes as well as the middle lobe and lingula bilaterally. No pleural effusion or thickening. Hepatic steatosis. Small hiatal hernia. Otherwise, visualized upper abdomen is unremarkable. No suspicious osseous lesions or acute fractures. IMPRESSION: 1. Patchy areas of consolidation in the lower lobes, as well as the right middle lobe and lingula. This is favored to be infectious versus inflammatory in etiology. Given distribution correlate for aspiration. 2. Hepatic steatosis. 3. Small hiatal hernia. Exposure: One or more of the following in the visualized dose reduction techniques were utilized for this examination: 1. Automated exposure control 2. Adjustment of the MA and/or KV according to patient size 3. Use of iterative of reconstructive technique Electronically signed by: Katarzyna Wray MD (10/28/2018 5:31 PM) [facility] DICTATED and SIGNED BY: KATARZYNA WRAY MD DATE: 10/28/18 173 Course & Med Decision Making Course & Med Decision Making Pertinent Labs and Imaging studies reviewed. (See chart for details) This is a 53-year-old female patient presented to the ED today with multiple complaints including cough, shortness of breath, fever, chest pain, dizziness, symptoms began yesterday. Patient was admitted on Sep 29 for pneumonia Patient arrives in the ED with the following vitals-temperature 98.1, heart rate 105, blood pressure 104/66, O2 sats 96% on 2 L of oxygen, respiration 20. She was started on the sepsis protocol using ideal body weight. CBC with a WBC of 22.9, CMP with magnesium of 1.5 otherwise no acute findings. Lactic 1.3, pro-calcitonin 2.42. Chest xray-Bibasilar interstitial opacities are new from the prior examination and may represent pulmonary infiltrates in the appropriate clinical setting. Ct chest- Patchy areas of consolidation in the lower lobes, as well as the right middle lobe and lingula. This is favored to be infectious versus inflammatory in etiology. Given distribution correlate for aspiration. Hepatic steatosis. Small hiatal hernia. Spoke with Dr. Srinivasan who accepted patient for admission. 1942 Spoke with -who will follow-up with patient [address] Agarwal who requested we give patient Zosyn and Zyvox. Patient has already received Zosyn. Zyvox ordered Dragon Disclaimer Dragon Disclaimer This electronic medical record was generated, in whole or in part, using a voice recognition dictation system. The HEART Score for CP Pts HEART Score for Chest Pain: HEART Score for Chest Pain Response (Comments) Value History Slighlty/Non-Suspicious 0 ECG Normal 0 Age >45 - < 65 1 Risk Factors >3 Risk Factors or Hx CAD 2 Troponin >1-<3x Normal Limit 1 Total 4 Risk Factors: Risk Factors: DM, Current or recent (<one month) smoker, HTN, HLP, family history of CAD, obesity. Risk Scores: Score 0 - 3: 2.5% MACE over next 6 weeks - Discharge Home Score 4 - 6: 20.3% MACE over next 6 weeks - Admit for Clinical Observation Score 7 - 10: 72.7% MACE over next 6 weeks - Early Invasive Strategies Date and Time of Reassessment Date: Oct 28, 2018 Time: 17:15 Fluid Challenge Is the fluid challenge complet: No IBW Target Volume Used: Yes BMI > 30: Yes Vital Signs Vital Signs: Vital Signs Date Time Temp Pulse Resp B/P (MAP) Pulse Ox O2 Delivery O2 Flow Rate FiO2 10/28/18 17:05 90 20 95 10/28/18 17:01 Nasal Cannula 2.0 10/28/18 16:22 114/51 10/28/18 15:23 98.1 98.1 Temperature Source: Oral Respirations Respiratory Effort: Normal Respiratory Pattern: Normal Cardiovascular Pulse Rhythm: Regular Heart: Nml rate, reg. rhythm Lung Sounds Breath Sounds: Clear Capillary Refil Capillary Refill: Rt Hand > 3 seconds Peripheral Pulse Pulse Location: Monitor Pulse Strength: Normal (2+) Pulse Assessment Method: Monitor Integumentary Skin: Warm Skin Moisture: Dry Skin Turgor: Normal Skin Color: dry Fingernail Color: WNL Departure Departure Impression: Primary Impression: Chest pain Additional Impressions: Sepsis Leukocytosis Pneumonia Disposition: 09 ADMITTED INPATIENT Condition: STABLE Referrals: KALINA WEBER DO (PCP) Problem Qualifiers Primary Impression: Chest pain Chest pain type: unspecified Qualified Codes: R07.9 - Chest pain, unspecified Additional Impressions: Sepsis Sepsis type: sepsis due to unspecified organism Sepsis acute organ dysfunction status: unspecified Qualified Codes: A41.9 - Sepsis, unspecified organism Leukocytosis Leukocytosis type: unspecified Qualified Codes: D72.829 - Elevated white blood cell count, unspecified Pneumonia Pneumonia type: due to unspecified organism Laterality: bilateral Lung location: lower lobe of lung Qualified Codes: J18.1 - Lobar pneumonia, unspecified organism MINA GAMBINO APRN Oct 28, 2018 16:12
--- NOTE | 2018-10-28 16:17 | EKG ---
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
[2018-10-28 16:18] LABS: CALCIUM 8.9 mg/dL (8.5-10.1); GFR 57.8; POTASSIUM 3.5 mmol/L (3.5-5.1)
[2018-10-28] MEDS: fentaNYL PF VIAL 100 MCG/2 ML VIAL IV PRN ×2 (16:20→17:01)
[2018-10-28] MEDS: IV NORMAL SALINE 1000ML BAG 1,000 ML IV SCH ×2 (16:22→16:55)
[2018-10-28 16:25] LABS: ALBUMIN/GLOBULIN RATIO 0.7 (1.0-1.7); MAGNESIUM 1.5 mg/dL (1.8-2.4); TOTAL BILIRUBIN 0.6 mg/dL (0.2-1.0); TOTAL PROTEIN 7.2 g/dL (6.4-8.2)
--- NOTE | 2018-10-28 16:25 | RAD ---
Chest radiograph 10/28/2018 3:50 PM INDICATION: Fever, cough and chest pain COMPARISON: 10/20/2018 TECHNIQUE: Frontal and lateral views of the chest are provided. FINDINGS: The cardiomediastinal silhouette is within normal limits. There are no pleural effusions. There is no pulmonary vascular congestion. There is no pneumothorax. Bibasilar interstitial opacities may represent bibasilar pulmonary infiltrates in the appropriate clinical setting. Anterior cervical discectomy and fusion hardware is partially profiled within the lower cervical spine. IMPRESSION: Bibasilar interstitial opacities are new from the prior examination and may represent pulmonary infiltrates in the appropriate clinical setting. Short-term follow-up radiographs may be of benefit. Electronically signed by: Ludivina Brady MD (10/28/2018 4:22 PM) [facility]
[2018-10-28 16:30] LABS: PROTHROMBIN TIME PATIENT 13.1 SEC (11.7-14.0)
[2018-10-28] MEDS ORDERED: ASPIRIN 325 MG TABLET PO ONE (16:30)
[2018-10-28 16:38] LABS: CREATINE KINASE 63 U/L (26-192)
[2018-10-28] MEDS ORDERED: VANCOMYCIN 2 GM in IV NORMAL SALINE 500ML BAG 500 ML IV ONE (17:00)
[2018-10-28 17:28] LABS: % BANDS 5 % (0-9); % LYMPHS 11 % (24-48); % MONOS 2 % (0-10); % MYELOS 1 % (0-0); % SEGS 81 % (35-66)
[2018-10-28 17:33] LABS: ANISOCYTOSIS SLIGHT; PLT ESTIMATE ADEQUATE (ADEQUATE); POLYCHROMASIA SLIGHT; TOXIC GRANULATION MARKED
--- NOTE | 2018-10-28 17:34 | RAD ---
Exam: CT of chest without contrast INDICATION: Abnormal chest x-ray, cough TECHNIQUE: Sequential axial images through the chest obtained without IV contrast. Sagittal and coronal reformatted images were reconstructed from the axial data and reviewed. Comparisons: Chest x-ray same day FINDINGS: Visualized portions of the thyroid are unremarkable. No enlarged mediastinal lymph nodes are identified. Heart size is normal. No pericardial effusion. Thoracic aorta has a normal course and caliber. Pulmonary artery is not enlarged. Airways are patent. There is patchy areas of consolidation noted within the lower lobes as well as the middle lobe and lingula bilaterally. No pleural effusion or thickening. Hepatic steatosis. Small hiatal hernia. Otherwise, visualized upper abdomen is unremarkable. No suspicious osseous lesions or acute fractures. IMPRESSION: 1. Patchy areas of consolidation in the lower lobes, as well as the right middle lobe and lingula. This is favored to be infectious versus inflammatory in etiology. Given distribution correlate for aspiration. 2. Hepatic steatosis. 3. Small hiatal hernia. Exposure: One or more of the following in the visualized dose reduction techniques were utilized for this examination: 1. Automated exposure control 2. Adjustment of the MA and/or KV according to patient size 3. Use of iterative of reconstructive technique Electronically signed by: Katarzyna Segovia MD (10/28/2018 5:31 PM) [facility]
[2018-10-28 17:40] LABS: INFLUENZA A PATIENT NEGATIVE (NEGATIVE); INFLUENZA B PATIENT NEGATIVE (NEGATIVE)
[2018-10-28 17:44] LABS: BILIRUBIN,URINE NEGATIVE (NEG); CLARITY,URINE CLEAR; COLOR,URINE YELLOW; NITRITE,URINE NEGATIVE (NEG); PROTEIN,URINE NEGATIVE (NEG-TRACE); UROBILINOGEN,URINE 0.2 mg/dL (0.2 mg/dL)
[2018-10-28 17:48] LABS: BARBITURATES NEG (NEG); BENZODIAZEPINES NEG (NEG); CANNABINOIDS NEG (NEG); COCAINE NEG (NEG); METHADONE NEG (NEG); OPIATES POS (NEG); PHENCYCLIDINE NEG (NEG)
[2018-10-28 17:49] LABS: BACTERIA,URINE 0 /HPF (0-FEW); RBC,URINE 0 /HPF (0-2); SQUAMOUS EPITHELIAL CELL,UR OCC /LPF; WBC,URINE OCC /HPF (0-4)
[2018-10-28 17:50] LABS: AMPHETAMINE/METHAMPHETAMINE NEG (NEG)
[2018-10-28] MEDS ORDERED: ONDANSETRON PF 4 MG/2 ML VIAL. IV PRN (19:00)
[2018-10-28] MEDS ORDERED: ACETAMINOPHEN 325 MG TABLET. PO PRN (19:00)
--- NOTE | 2018-10-28 19:06 | HP ---
ADMIT DATE: 10/28/2018 CHIEF COMPLAINT: Lightheadedness. HISTORY OF PRESENT ILLNESS: The patient is a pleasant 53-year-old female who presented to the ER with several complaints. She has been complaining of lightheadedness for several days. She also has body aches 6/10 with some substernal chest pain that has been going on since yesterday. She also complains of subjective fever and cough. While in the ER, we did a CAT scan of the chest, which is showing bilateral pneumonia. I discussed the case with ER physician. We are going to admit the patient and consult Pulmonary Medicine. PAST MEDICAL HISTORY: Depression, diabetes, hypertension, hyperlipidemia, previous pneumonia, autoimmune disease, cholecystectomy, hysterectomy, cervical surgery, cardiac catheterization. She quit smoking in September. ALLERGIES: MORPHINE. FAMILY HISTORY: Diabetes. SOCIAL HISTORY: She quit smoking in September. No drinking or drugs. She is for 15 years. MEDICATIONS: Reviewed, please refer to the MRAD. REVIEW OF SYSTEMS: GENERAL: She complains of weakness. SKIN: No bruising, hair changes or rashes. EYES: No blurred, double or loss of vision. NOSE AND THROAT: No history of nosebleeds, hoarseness or sore throat. HEART: She complains of chest pain. LUNGS: Denies cough, hemoptysis, wheezing or shortness of breath. GASTROINTESTINAL: Denies changes in appetite, nausea, vomiting, diarrhea or constipation. GENITOURINARY: No history of frequency, urgency, hesitancy or nocturia. NEUROLOGIC: She complains of dizziness. PSYCHIATRIC: No history of panic, anxiety or depression. ENDOCRINE: No history of heat or cold intolerance, polyuria or polydipsia. EXTREMITIES: Denies muscle weakness, joint pain, pain on walking or stiffness. PHYSICAL EXAMINATION: VITALS: Within normal limits and are stable. GENERAL: No apparent distress. Alert and oriented. HEENT: Head is normocephalic, atraumatic, pupils were equally round and reactive to light and accommodation. NECK: Supple, no JVD, no thyromegaly was noted. LUNGS: Clear to auscultation in all lung dos santos without rhonchi or wheezing. HEART: RRR, S1, S2 present. Peripheral pulses intact, no obvious murmurs were noted. ABDOMEN: Soft, nontender. Positive bowel sounds no organomegaly, normal bowel sounds. EXTREMITIES: Without any cyanosis, clubbing, or edema. Pedal pulses intact, Homans sign is negative. NEUROLOGIC: Normal speech, normal tone. A & O x3, moves all extremities, no obvious focal deficits. PSYCHIATRIC: Normal affect, normal mood. Stable. SKIN: No ulcerations or rashes, good skin turgor, no jaundice. VASCULAR: Good capillary refill, neurovascular bundle appears to be intact. IMAGING: CT of the chest shows bilateral pneumonia. LABORATORY DATA: White count is 23. ASSESSMENT AND PLAN: Bilateral pneumonia and leukocytosis. The patient has been admitted, was started on IV antibiotics, breathing treatments, oxygen. Consider steroids, home meds, DVT prophylaxis. Consult Dr. Forde. PROGNOSIS: Guarded. CADEN GUERRERO DO DR: ALIREZA/sarah JOB#: [id number] / [id number]
[2018-10-28] MEDS ORDERED: IV NORMAL SALINE 1000ML BAG 1,000 ML IV ONE (19:15)
[2018-10-28 20:20] VITALS: BP 113/70
--- NOTE | 2018-10-28 20:25 | NUR ---
Pt arrived to unit per cart at 2012.Pt oriented to surroundings and call light assessment completed vs obtained and stable. Pt c/o midsternal chest pain with cough. Poc explained will resume care and continue to monitor pt. Call placed to Dr. will re: home meds.
[2018-10-28 23:00] VITALS: BP 99/55
[2018-10-28] MEDS ORDERED: TEMAZEPAM 15 MG CAPSULE PO PRN (23:00)
[2018-10-28] MEDS ORDERED: IBUPROFEN 400 MG TABLET. PO PRN (23:00)
[2018-10-28] MEDS ORDERED: BENZONATATE 100 MG CAPSULE. PO SCH (23:00)
[2018-10-28] MEDS ORDERED: NON FORMULARY ITEM (Melatonin 10 MG) PO PRN (23:00)
[2018-10-28] MEDS: BENZONATATE 100 MG CAPSULE. PO PRN (23:21)
[2018-10-28] MEDS: TEMAZEPAM 15 MG CAPSULE PO PRN (23:21)
[2018-10-29 01:39] LABS: CALCIUM 7.8 mg/dL (8.5-10.1); CREATININE 0.9 mg/dL (0.6-1.0); GFR 65.2; POTASSIUM 3.2 mmol/L (3.5-5.1)
[2018-10-29 03:00] VITALS: BP 114/61
[2018-10-29 04:18] LABS: BASO # 0.1 x10^3/uL (0.0-0.2); BASO % 0 % (0-3); EOS # 0.3 x10^3/uL (0.0-0.7); EOS % 2 % (0-3); HEMATOCRIT 28.9 % (36.0-47.0); HEMOGLOBIN 9.4 g/dL (12.0-15.5); LYMPH # 3.4 x10^3/uL (1.0-4.8); LYMPH % 24 % (24-48); MEAN CORPUSCULAR HEMOGLOBIN 29 pg (25-35); MEAN CORPUSCULAR HGB CONC 33 g/dL (31-37); MEAN CORPUSCULAR VOLUME 88 fL (79-100); MONO # 0.8 x10^3/uL (0.0-1.1); MONO % 6 % (0-9); NEUT # 9.4 x10^3/uL (1.8-7.7); NEUT % 67 % (31-73); PLATELET COUNT 233 x10^3/uL (140-400); RED BLOOD COUNT 3.28 x10^6/uL (3.50-5.40); RED CELL DISTRIBUTION WIDTH 18.8 % (11.5-14.5)
[2018-10-29] MEDS: PANTOPRAZOLE 40 MG TABLET.DR. PO SCH (06:23)
[2018-10-29 07:48] VITALS: BP 117/59
[2018-10-29] MEDS ORDERED: NON FORMULARY ITEM (Icosapent Ethyl (Vascepa) 1 GM) PO SCH (08:00)
[2018-10-29] MEDS: IPRATRPIUM/ALBUTEROL 0.5/2.5MG 3 ML NEBU. NEB SCH ×4 (08:23→19:49)
--- NOTE | 2018-10-29 08:28 | PDOC ---
Infectious Disease Note Vital Sign Vital Signs Vital Signs Date Time Temp Pulse Resp B/P (MAP) Pulse Ox O2 Delivery O2 Flow Rate FiO2 10/29/18 07:48 97.4 90 16 117/59 (78) 95 Room Air 97.4 10/28/18 20:20 2.0 Labs Lab Laboratory Tests Test 10/28/18 15:46 10/28/18 17:07 10/28/18 17:30 10/28/18 19:45 White Blood Count 22.9 x10^3/uL (4.0-11.0) Red Blood Count 4.04 x10^6/uL (3.50-5.40) Hemoglobin 11.3 g/dL (12.0-15.5) Hematocrit 34.8 % (36.0-47.0) Mean Corpuscular Volume 86 fL (79-100) Mean Corpuscular Hemoglobin 28 pg (25-35) Mean Corpuscular Hemoglobin Concent 33 g/dL (31-37) Red Cell Distribution Width 17.8 % (11.5-14.5) Platelet Count 296 x10^3/uL (140-400) Neutrophils (%) (Auto) 82 % (31-73) Lymphocytes (%) (Auto) 14 % (24-48) Monocytes (%) (Auto) 4 % (0-9) Eosinophils (%) (Auto) 0 % (0-3) Basophils (%) (Auto) 1 % (0-3) Neutrophils # (Auto) 18.6 x10^3/uL (1.8-7.7) Lymphocytes # (Auto) 3.1 x10^3/uL (1.0-4.8) Monocytes # (Auto) 0.9 x10^3/uL (0.0-1.1) Eosinophils # (Auto) 0.1 x10^3/uL (0.0-0.7) Basophils # (Auto) 0.1 x10^3/uL (0.0-0.2) Segmented Neutrophils % 81 % (35-66) Band Neutrophils % 5 % (0-9) Lymphocytes % 11 % (24-48) Monocytes % 2 % (0-10) Myelocytes % 1 % (0-0) Toxic Granulation Marked Platelet Estimate Adequate (ADEQUATE) Polychromasia Slight Anisocytosis Slight Prothrombin Time 13.1 SEC (11.7-14.0) Prothromb Time International Ratio 1.0 (0.8-1.1) Sodium Level 143 mmol/L (136-145) Potassium Level 3.5 mmol/L (3.5-5.1) Chloride Level 103 mmol/L (98-107) Carbon Dioxide Level 30 mmol/L (21-32) Anion Gap 10 (6-14) Blood Urea Nitrogen 9 mg/dL (7-20) Creatinine 1.0 mg/dL (0.6-1.0) Estimated GFR (Cockcroft-Gault) 57.8 BUN/Creatinine Ratio 9 (6-20) Glucose Level 103 mg/dL (70-99) Lactic Acid Level 1.3 mmol/L (0.4-2.0) 0.6 mmol/L (0.4-2.0) Calcium Level 8.9 mg/dL (8.5-10.1) Magnesium Level 1.5 mg/dL (1.8-2.4) Total Bilirubin 0.6 mg/dL (0.2-1.0) Aspartate Amino Transf (AST/SGOT) 23 U/L (15-37) Alanine Aminotransferase (ALT/SGPT) 28 U/L (14-59) Alkaline Phosphatase 124 U/L (46-116) Creatine Kinase 63 U/L (26-192) Creatine Kinase MB (Mass) < 0.5 ng/mL (0.0-3.6) Creatine Kinase MB Relative Index % (0-4) Troponin I Quantitative < 0.017 ng/mL (0.000-0.055) RG-Lht-T-Type Natriuretic Peptide 231 pg/mL (0-124) Total Protein 7.2 g/dL (6.4-8.2) Albumin 3.0 g/dL (3.4-5.0) Albumin/Globulin Ratio 0.7 (1.0-1.7) Procalcitonin 2.42 ng/mL (0.00-0.10) Thyroid Stimulating Hormone (TSH) 1.004 uIU/mL (0.358-3.74) Influenza Type A Antigen Negative (NEGATIVE) Influenza Type B Antigen Negative (NEGATIVE) Urine Color Yellow Urine Clarity Clear Urine pH 6.0 Urine Specific [place] 1.015 Urine Protein Negative mg/dL (NEG-TRACE) Urine Glucose (UA) Negative mg/dL (NEG) Urine Ketones (Stick) Negative mg/dL (NEG) Urine Blood Negative (NEG) Urine Nitrite Negative (NEG) Urine Bilirubin Negative (NEG) Urine Urobilinogen Dipstick 0.2 mg/dL (0.2 mg/dL) Urine Leukocyte Esterase Negative (NEG) Urine RBC 0 /HPF (0-2) Urine WBC Occ /HPF (0-4) Urine Squamous Epithelial Cells Occ /LPF Urine Bacteria 0 /HPF (0-FEW) Urine Opiates Screen Pos (NEG) Urine Methadone Screen Neg (NEG) Urine Barbiturates Neg (NEG) Urine Phencyclidine Screen Neg (NEG) Urine Amphetamine/Methamphetamine Neg (NEG) Urine Benzodiazepines Screen Neg (NEG) Urine Cocaine Screen Neg (NEG) Urine Cannabinoids Screen Neg (NEG) Urine Ethyl Alcohol Neg (NEG) Test 10/28/18 20:44 10/28/18 22:20 10/29/18 01:20 10/29/18 04:00 Glucose (Fingerstick) 96 mg/dL (70-99) Troponin I Quantitative < 0.017 ng/mL (0.000-0.055) < 0.017 ng/mL (0.000-0.055) White Blood Count 14.0 x10^3/uL (4.0-11.0) Red Blood Count 3.28 x10^6/uL (3.50-5.40) Hemoglobin 9.4 g/dL (12.0-15.5) Hematocrit 28.9 % (36.0-47.0) Mean Corpuscular Volume 88 fL (79-100) Mean Corpuscular Hemoglobin 29 pg (25-35) Mean Corpuscular Hemoglobin Concent 33 g/dL (31-37) Red Cell Distribution Width 18.8 % (11.5-14.5) Platelet Count 233 x10^3/uL (140-400) Neutrophils (%) (Auto) 67 % (31-73) Lymphocytes (%) (Auto) 24 % (24-48) Monocytes (%) (Auto) 6 % (0-9) Eosinophils (%) (Auto) 2 % (0-3) Basophils (%) (Auto) 0 % (0-3) Neutrophils # (Auto) 9.4 x10^3/uL (1.8-7.7) Lymphocytes # (Auto) 3.4 x10^3/uL (1.0-4.8) Monocytes # (Auto) 0.8 x10^3/uL (0.0-1.1) Eosinophils # (Auto) 0.3 x10^3/uL (0.0-0.7) Basophils # (Auto) 0.1 x10^3/uL (0.0-0.2) Sodium Level 149 mmol/L (136-145) Potassium Level 3.2 mmol/L (3.5-5.1) Chloride Level 113 mmol/L (98-107) Carbon Dioxide Level 31 mmol/L (21-32) Anion Gap 5 (6-14) Blood Urea Nitrogen 9 mg/dL (7-20) Creatinine 0.9 mg/dL (0.6-1.0) Estimated GFR (Cockcroft-Gault) 65.2 Glucose Level 146 mg/dL (70-99) Calcium Level 7.8 mg/dL (8.5-10.1) Objective Assessment pt seen, consult dictated Plan Plan of Care // VAL ARANDA MD Oct 29, 2018 08:28
--- NOTE | 2018-10-29 09:07 | CONS ---
DATE OF CONSULTATION: 10/29/2018 REQUESTING PHYSICIAN: Jameson Srinivasan DO REASON FOR CONSULTATION: Dizziness, fever and pneumonia. HISTORY OF PRESENT ILLNESS: This is a 53-year-old female who was recently diagnosed with pneumonia on 09/29/2018. The patient was treated and discharged. The patient returned with chest pain and Cardiology workup done, which apparently had a heart attack and cardiac catheterization done. The patient then subsequently discharged on 10/21 and now returns with dizziness, lightheadedness, fever, nausea, dry heaves, not feeling well. The patient could not stand or walk properly she says. The patient denies any headache. Denies any vomiting. Denies any chest pain, shortness of breath, abdominal pain, occasional cough present. Denies any urinary symptoms or bowel symptoms. 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 The patient has not had any invasive infection before then, i.e., pneumonia and/or any significant sinusitis or anything like that as she says and IVIG was started around in May after her diagnosis and in fact she is actually more sick after that and before. PAST SURGICAL HISTORY: The patient also has had cholecystectomy, hysterectomy, cervical surgery. SOCIAL HISTORY: Positive for smoking. She quit apparently in last month. No alcohol use or drug use. [place] cows that she has no other farm animal. No outdoor activity. No grandkids or young kids' exposure and no travel history. CURRENT MEDICATIONS: Reviewed. I did discuss with the ER physician last evening. REVIEW OF SYSTEMS: As per HPI, all other systems reviewed are negative. PHYSICAL EXAMINATION: GENERAL: Alert, oriented female, not in distress. VITAL SIGNS: Stable. Afebrile. HEENT: NAD. NECK: Supple, no JVP, no lymphadenopathy. LUNGS: Clear. HEART: S1, S2 regular. ABDOMEN: Benign. EXTREMITIES: No edema, cyanosis. SKIN: Unremarkable. NEUROLOGIC: The patient is neurologically alert, awake and appropriate. No focal neurologic deficit. LABORATORY DATA: White count is 14,000, it was 22,000 yesterday; hemoglobin 9.4; platelets are normal. BUN and creatinine normal. Lactic acid 1.3. Drug screen showed opioid is positive. Urinalysis unremarkable. Influenza screen was done and negative. Cultures are pending. Last admission cultures were all negative. CT of the chest done, which showed patchy areas of consolidation in the lower lobes as well as the right middle lobe and lingula. Her echocardiogram had shown 60-65% ejection fraction. IMPRESSION: 1. Symptoms of dizziness, fever, nausea of unclear etiology. She has not had any fever yet here. 2. Leukocytosis. 3. Bilateral patchy infiltrate whether it is just organization from the last admission or new, it is hard to say. 4. History of diagnosis of common variable immunodeficiency. 5. Diabetes. 6. Hypertension. 7. Recent cardiac cath with no significant coronary artery disease. RECOMMENDATIONS: We will discontinue vancomycin, discontinue Zyvox, discontinue Zosyn, change to meropenem. May do another autoimmune workup like KATINA screen. Supportive care. If any question, might consider doing a bronchoscopy. Supportive care and we will continue to follow. Thank you very much, Dr. Srinivasan, for giving me the opportunity to participate in this patient's care. VAL ARANDA MD DR: KRISHNA/sarah JOB#: [id number] / [id number]
[2018-10-29] MEDS: buPROPion XL 150 MG TAB.ER.24H. PO SCH (10:06)
[2018-10-29] MEDS: BENZONATATE 100 MG CAPSULE. PO PRN ×2 (10:06→21:24)
[2018-10-29] MEDS: OMEGA-3 FATTY ACIDS/FISH OIL 1,000 MG CAPSULE. PO SCH (10:06)
[2018-10-29] MEDS: DULoxetine HCL 30 MG CAPSULE.DR PO SCH (10:06)
[2018-10-29] MEDS: ASPIRIN ENTERIC COATED 81 MG TABLET.DR. PO SCH (10:07)
[2018-10-29] MEDS: metFORMIN 500 MG TABLET PO SCH ×2 (10:07→17:28)
[2018-10-29] MEDS: guaiFENesin DM 200MG/20MG 10 ML SYRUP PO PRN (10:15)
[2018-10-29] MEDS: ALPRAZolam 0.25 MG TABLET PO PRN (10:16)
[2018-10-29] MEDS: MEROPENEM 1 GM in IV NORMAL SALINE 100ML 100 ML IV SCH ×3 (10:16→21:25)
[2018-10-29 10:33] VITALS: BP 134/63
--- NOTE | 2018-10-29 10:45 | PDOC ---
PROGRESS NOTES History of Present Illness History of Present Illness ASSESSMENT AND PLAN: Bilateral pneumonia and leukocytosis. obesity, morbid Patchy areas of consolidation in the lower lobes, as well as the right middle lobe and lingula. This is favored to be infectious versus inflammatory in etiology. Given distribution possible aspiration. Hepatic steatosis. Small hiatal hernia. admitted, IV antibiotics, zosyn breathing treatments, oxygen. iv steroids, home meds, DVT prophylaxis. Consult Dr. Forde. 39 MIN PT EXAM, CHART REVIEW, > 50% OF TIME SPENT WITH EXAM, CHART REVIEW, PT CARE COORDINATION Vitals Vitals Vital Signs Date Time Temp Pulse Resp B/P (MAP) Pulse Ox O2 Delivery O2 Flow Rate FiO2 10/29/18 10:33 97.4 89 16 134/63 (86) 96 Room Air 97.4 10/28/18 20:20 2.0 Physical Exam Physical Exam GENERAL: No apparent distress. Alert and oriented. HEENT: Head is normocephalic, atraumatic, pupils were equally round and reactive to light and accommodation. NECK: Supple, no JVD, no thyromegaly was noted. LUNGS: rhonchi HEART: RRR, S1, S2 present. Peripheral pulses intact, no obvious murmurs were noted. ABDOMEN: Soft, nontender. Positive bowel sounds no organomegaly, normal bowel sounds. EXTREMITIES: Without any cyanosis, clubbing, or edema. Pedal pulses intact, Homans sign is negative. NEUROLOGIC: Normal speech, normal tone. A & O x3, moves all extremities, no obvious focal deficits. PSYCHIATRIC: Normal affect, normal mood. Stable. SKIN: No ulcerations or rashes, good skin turgor, no jaundice. VASCULAR: Good capillary refill, neurovascular bundle appears to be intact. General: Cooperative Heart: Regular rate Lungs: Crackles Labs LABS Exam: CT of chest without contrast INDICATION: Abnormal chest x-ray, cough TECHNIQUE: Sequential axial images through the chest obtained without IV contrast. Sagittal and coronal reformatted images were reconstructed from the axial data and reviewed. Comparisons: Chest x-ray same day FINDINGS: Visualized portions of the thyroid are unremarkable. No enlarged mediastinal lymph nodes are identified. Heart size is normal. No pericardial effusion. Thoracic aorta has a normal course and caliber. Pulmonary artery is not enlarged. Airways are patent. There is patchy areas of consolidation noted within the lower lobes as well as the middle lobe and lingula bilaterally. No pleural effusion or thickening. Hepatic steatosis. Small hiatal hernia. Otherwise, visualized upper abdomen is unremarkable. No suspicious osseous lesions or acute fractures. IMPRESSION: 1. Patchy areas of consolidation in the lower lobes, as well as the right middle lobe and lingula. This is favored to be infectious versus inflammatory in etiology. Given distribution correlate for aspiration. 2. Hepatic steatosis. 3. Small hiatal hernia. Exposure: One or more of the following in the visualized dose reduction techniques were utilized for this examination: 1. Automated exposure control 2. Adjustment of the MA and/or KV according to patient size 3. Use of iterative of reconstructive technique Electronically signed by: Katarzyna Wray MD (10/28/2018 5:31 PM) [facility] DICTATED and SIGNED BY: KATARZYNA WRAY MD DATE: 10/28/18 1731 Laboratory Tests Test 10/28/18 15:46 10/28/18 17:07 10/28/18 17:30 10/28/18 19:45 White Blood Count 22.9 x10^3/uL (4.0-11.0) Red Blood Count 4.04 x10^6/uL (3.50-5.40) Hemoglobin 11.3 g/dL (12.0-15.5) Hematocrit 34.8 % (36.0-47.0) Mean Corpuscular Volume 86 fL (79-100) Mean Corpuscular Hemoglobin 28 pg (25-35) Mean Corpuscular Hemoglobin Concent 33 g/dL (31-37) Red Cell Distribution Width 17.8 % (11.5-14.5) Platelet Count 296 x10^3/uL (140-400) Neutrophils (%) (Auto) 82 % (31-73) Lymphocytes (%) (Auto) 14 % (24-48) Monocytes (%) (Auto) 4 % (0-9) Eosinophils (%) (Auto) 0 % (0-3) Basophils (%) (Auto) 1 % (0-3) Neutrophils # (Auto) 18.6 x10^3/uL (1.8-7.7) Lymphocytes # (Auto) 3.1 x10^3/uL (1.0-4.8) Monocytes # (Auto) 0.9 x10^3/uL (0.0-1.1) Eosinophils # (Auto) 0.1 x10^3/uL (0.0-0.7) Basophils # (Auto) 0.1 x10^3/uL (0.0-0.2) Segmented Neutrophils % 81 % (35-66) Band Neutrophils % 5 % (0-9) Lymphocytes % 11 % (24-48) Monocytes % 2 % (0-10) Myelocytes % 1 % (0-0) Toxic Granulation Marked Platelet Estimate Adequate (ADEQUATE) Polychromasia Slight Anisocytosis Slight Prothrombin Time 13.1 SEC (11.7-14.0) Prothromb Time International Ratio 1.0 (0.8-1.1) Sodium Level 143 mmol/L (136-145) Potassium Level 3.5 mmol/L (3.5-5.1) Chloride Level 103 mmol/L (98-107) Carbon Dioxide Level 30 mmol/L (21-32) Anion Gap 10 (6-14) Blood Urea Nitrogen 9 mg/dL (7-20) Creatinine 1.0 mg/dL (0.6-1.0) Estimated GFR (Cockcroft-Gault) 57.8 BUN/Creatinine Ratio 9 (6-20) Glucose Level 103 mg/dL (70-99) Lactic Acid Level 1.3 mmol/L (0.4-2.0) 0.6 mmol/L (0.4-2.0) Calcium Level 8.9 mg/dL (8.5-10.1) Magnesium Level 1.5 mg/dL (1.8-2.4) Total Bilirubin 0.6 mg/dL (0.2-1.0) Aspartate Amino Transf (AST/SGOT) 23 U/L (15-37) Alanine Aminotransferase (ALT/SGPT) 28 U/L (14-59) Alkaline Phosphatase 124 U/L (46-116) Creatine Kinase 63 U/L (26-192) Creatine Kinase MB (Mass) < 0.5 ng/mL (0.0-3.6) Creatine Kinase MB Relative Index % (0-4) Troponin I Quantitative < 0.017 ng/mL (0.000-0.055) LT-Bkh-Y-Type Natriuretic Peptide 231 pg/mL (0-124) Total Protein 7.2 g/dL (6.4-8.2) Albumin 3.0 g/dL (3.4-5.0) Albumin/Globulin Ratio 0.7 (1.0-1.7) Procalcitonin 2.42 ng/mL (0.00-0.10) Thyroid Stimulating Hormone (TSH) 1.004 uIU/mL (0.358-3.74) Influenza Type A Antigen Negative (NEGATIVE) Influenza Type B Antigen Negative (NEGATIVE) Urine Color Yellow Urine Clarity Clear Urine pH 6.0 Urine Specific [place] 1.015 Urine Protein Negative mg/dL (NEG-TRACE) Urine Glucose (UA) Negative mg/dL (NEG) Urine Ketones (Stick) Negative mg/dL (NEG) Urine Blood Negative (NEG) Urine Nitrite Negative (NEG) Urine Bilirubin Negative (NEG) Urine Urobilinogen Dipstick 0.2 mg/dL (0.2 mg/dL) Urine Leukocyte Esterase Negative (NEG) Urine RBC 0 /HPF (0-2) Urine WBC Occ /HPF (0-4) Urine Squamous Epithelial Cells Occ /LPF Urine Bacteria 0 /HPF (0-FEW) Urine Opiates Screen Pos (NEG) Urine Methadone Screen Neg (NEG) Urine Barbiturates Neg (NEG) Urine Phencyclidine Screen Neg (NEG) Urine Amphetamine/Methamphetamine Neg (NEG) Urine Benzodiazepines Screen Neg (NEG) Urine Cocaine Screen Neg (NEG) Urine Cannabinoids Screen Neg (NEG) Urine Ethyl Alcohol Neg (NEG) Test 10/28/18 20:44 10/28/18 22:20 10/29/18 01:20 10/29/18 04:00 Glucose (Fingerstick) 96 mg/dL (70-99) Troponin I Quantitative < 0.017 ng/mL (0.000-0.055) < 0.017 ng/mL (0.000-0.055) White Blood Count 14.0 x10^3/uL (4.0-11.0) Red Blood Count 3.28 x10^6/uL (3.50-5.40) Hemoglobin 9.4 g/dL (12.0-15.5) Hematocrit 28.9 % (36.0-47.0) Mean Corpuscular Volume 88 fL (79-100) Mean Corpuscular Hemoglobin 29 pg (25-35) Mean Corpuscular Hemoglobin Concent 33 g/dL (31-37) Red Cell Distribution Width 18.8 % (11.5-14.5) Platelet Count 233 x10^3/uL (140-400) Neutrophils (%) (Auto) 67 % (31-73) Lymphocytes (%) (Auto) 24 % (24-48) Monocytes (%) (Auto) 6 % (0-9) Eosinophils (%) (Auto) 2 % (0-3) Basophils (%) (Auto) 0 % (0-3) Neutrophils # (Auto) 9.4 x10^3/uL (1.8-7.7) Lymphocytes # (Auto) 3.4 x10^3/uL (1.0-4.8) Monocytes # (Auto) 0.8 x10^3/uL (0.0-1.1) Eosinophils # (Auto) 0.3 x10^3/uL (0.0-0.7) Basophils # (Auto) 0.1 x10^3/uL (0.0-0.2) Sodium Level 149 mmol/L (136-145) Potassium Level 3.2 mmol/L (3.5-5.1) Chloride Level 113 mmol/L (98-107) Carbon Dioxide Level 31 mmol/L (21-32) Anion Gap 5 (6-14) Blood Urea Nitrogen 9 mg/dL (7-20) Creatinine 0.9 mg/dL (0.6-1.0) Estimated GFR (Cockcroft-Gault) 65.2 Glucose Level 146 mg/dL (70-99) Calcium Level 7.8 mg/dL (8.5-10.1) Test 10/29/18 08:18 Glucose (Fingerstick) 116 mg/dL (70-99) Assessment and Plan Assessmemt and Plan Problems Medical Problems: (1) Chest pain Status: Acute (2) Leukocytosis Status: Acute (3) Pneumonia Status: Acute (4) Sepsis Status: Acute Comment Review of Relevant I have reviewed the following items aide (where applicable) has been applied. Labs Laboratory Tests Test 10/28/18 15:46 10/28/18 17:07 10/28/18 17:30 10/28/18 19:45 White Blood Count 22.9 x10^3/uL (4.0-11.0) Red Blood Count 4.04 x10^6/uL (3.50-5.40) Hemoglobin 11.3 g/dL (12.0-15.5) Hematocrit 34.8 % (36.0-47.0) Mean Corpuscular Volume 86 fL (79-100) Mean Corpuscular Hemoglobin 28 pg (25-35) Mean Corpuscular Hemoglobin Concent 33 g/dL (31-37) Red Cell Distribution Width 17.8 % (11.5-14.5) Platelet Count 296 x10^3/uL (140-400) Neutrophils (%) (Auto) 82 % (31-73) Lymphocytes (%) (Auto) 14 % (24-48) Monocytes (%) (Auto) 4 % (0-9) Eosinophils (%) (Auto) 0 % (0-3) Basophils (%) (Auto) 1 % (0-3) Neutrophils # (Auto) 18.6 x10^3/uL (1.8-7.7) Lymphocytes # (Auto) 3.1 x10^3/uL (1.0-4.8) Monocytes # (Auto) 0.9 x10^3/uL (0.0-1.1) Eosinophils # (Auto) 0.1 x10^3/uL (0.0-0.7) Basophils # (Auto) 0.1 x10^3/uL (0.0-0.2) Segmented Neutrophils % 81 % (35-66) Band Neutrophils % 5 % (0-9) Lymphocytes % 11 % (24-48) Monocytes % 2 % (0-10) Myelocytes % 1 % (0-0) Toxic Granulation Marked Platelet Estimate Adequate (ADEQUATE) Polychromasia Slight Anisocytosis Slight Prothrombin Time 13.1 SEC (11.7-14.0) Prothromb Time International Ratio 1.0 (0.8-1.1) Sodium Level 143 mmol/L (136-145) Potassium Level 3.5 mmol/L (3.5-5.1) Chloride Level 103 mmol/L (98-107) Carbon Dioxide Level 30 mmol/L (21-32) Anion Gap 10 (6-14) Blood Urea Nitrogen 9 mg/dL (7-20) Creatinine 1.0 mg/dL (0.6-1.0) Estimated GFR (Cockcroft-Gault) 57.8 BUN/Creatinine Ratio 9 (6-20) Glucose Level 103 mg/dL (70-99) Lactic Acid Level 1.3 mmol/L (0.4-2.0) 0.6 mmol/L (0.4-2.0) Calcium Level 8.9 mg/dL (8.5-10.1) Magnesium Level 1.5 mg/dL (1.8-2.4) Total Bilirubin 0.6 mg/dL (0.2-1.0) Aspartate Amino Transf (AST/SGOT) 23 U/L (15-37) Alanine Aminotransferase (ALT/SGPT) 28 U/L (14-59) Alkaline Phosphatase 124 U/L (46-116) Creatine Kinase 63 U/L (26-192) Creatine Kinase MB (Mass) < 0.5 ng/mL (0.0-3.6) Creatine Kinase MB Relative Index % (0-4) Troponin I Quantitative < 0.017 ng/mL (0.000-0.055) WJ-Uyk-Q-Type Natriuretic Peptide 231 pg/mL (0-124) Total Protein 7.2 g/dL (6.4-8.2) Albumin 3.0 g/dL (3.4-5.0) Albumin/Globulin Ratio 0.7 (1.0-1.7) Procalcitonin 2.42 ng/mL (0.00-0.10) Thyroid Stimulating Hormone (TSH) 1.004 uIU/mL (0.358-3.74) Influenza Type A Antigen Negative (NEGATIVE) Influenza Type B Antigen Negative (NEGATIVE) Urine Color Yellow Urine Clarity Clear Urine pH 6.0 Urine Specific [place] 1.015 Urine Protein Negative mg/dL (NEG-TRACE) Urine Glucose (UA) Negative mg/dL (NEG) Urine Ketones (Stick) Negative mg/dL (NEG) Urine Blood Negative (NEG) Urine Nitrite Negative (NEG) Urine Bilirubin Negative (NEG) Urine Urobilinogen Dipstick 0.2 mg/dL (0.2 mg/dL) Urine Leukocyte Esterase Negative (NEG) Urine RBC 0 /HPF (0-2) Urine WBC Occ /HPF (0-4) Urine Squamous Epithelial Cells Occ /LPF Urine Bacteria 0 /HPF (0-FEW) Urine Opiates Screen Pos (NEG) Urine Methadone Screen Neg (NEG) Urine Barbiturates Neg (NEG) Urine Phencyclidine Screen Neg (NEG) Urine Amphetamine/Methamphetamine Neg (NEG) Urine Benzodiazepines Screen Neg (NEG) Urine Cocaine Screen Neg (NEG) Urine Cannabinoids Screen Neg (NEG) Urine Ethyl Alcohol Neg (NEG) Test 10/28/18 20:44 10/28/18 22:20 10/29/18 01:20 10/29/18 04:00 Glucose (Fingerstick) 96 mg/dL (70-99) Troponin I Quantitative < 0.017 ng/mL (0.000-0.055) < 0.017 ng/mL (0.000-0.055) White Blood Count 14.0 x10^3/uL (4.0-11.0) Red Blood Count 3.28 x10^6/uL (3.50-5.40) Hemoglobin 9.4 g/dL (12.0-15.5) Hematocrit 28.9 % (36.0-47.0) Mean Corpuscular Volume 88 fL (79-100) Mean Corpuscular Hemoglobin 29 pg (25-35) Mean Corpuscular Hemoglobin Concent 33 g/dL (31-37) Red Cell Distribution Width 18.8 % (11.5-14.5) Platelet Count 233 x10^3/uL (140-400) Neutrophils (%) (Auto) 67 % (31-73) Lymphocytes (%) (Auto) 24 % (24-48) Monocytes (%) (Auto) 6 % (0-9) Eosinophils (%) (Auto) 2 % (0-3) Basophils (%) (Auto) 0 % (0-3) Neutrophils # (Auto) 9.4 x10^3/uL (1.8-7.7) Lymphocytes # (Auto) 3.4 x10^3/uL (1.0-4.8) Monocytes # (Auto) 0.8 x10^3/uL (0.0-1.1) Eosinophils # (Auto) 0.3 x10^3/uL (0.0-0.7) Basophils # (Auto) 0.1 x10^3/uL (0.0-0.2) Sodium Level 149 mmol/L (136-145) Potassium Level 3.2 mmol/L (3.5-5.1) Chloride Level 113 mmol/L (98-107) Carbon Dioxide Level 31 mmol/L (21-32) Anion Gap 5 (6-14) Blood Urea Nitrogen 9 mg/dL (7-20) Creatinine 0.9 mg/dL (0.6-1.0) Estimated GFR (Cockcroft-Gault) 65.2 Glucose Level 146 mg/dL (70-99) Calcium Level 7.8 mg/dL (8.5-10.1) Test 10/29/18 08:18 Glucose (Fingerstick) 116 mg/dL (70-99) Laboratory Tests Test 10/28/18 15:46 10/28/18 17:07 10/28/18 17:30 10/28/18 19:45 White Blood Count 22.9 x10^3/uL (4.0-11.0) Red Blood Count 4.04 x10^6/uL (3.50-5.40) Hemoglobin 11.3 g/dL (12.0-15.5) Hematocrit 34.8 % (36.0-47.0) Mean Corpuscular Volume 86 fL (79-100) Mean Corpuscular Hemoglobin 28 pg (25-35) Mean Corpuscular Hemoglobin Concent 33 g/dL (31-37) Red Cell Distribution Width 17.8 % (11.5-14.5) Platelet Count 296 x10^3/uL (140-400) Neutrophils (%) (Auto) 82 % (31-73) Lymphocytes (%) (Auto) 14 % (24-48) Monocytes (%) (Auto) 4 % (0-9) Eosinophils (%) (Auto) 0 % (0-3) Basophils (%) (Auto) 1 % (0-3) Neutrophils # (Auto) 18.6 x10^3/uL (1.8-7.7) Lymphocytes # (Auto) 3.1 x10^3/uL (1.0-4.8) Monocytes # (Auto) 0.9 x10^3/uL (0.0-1.1) Eosinophils # (Auto) 0.1 x10^3/uL (0.0-0.7) Basophils # (Auto) 0.1 x10^3/uL (0.0-0.2) Segmented Neutrophils % 81 % (35-66) Band Neutrophils % 5 % (0-9) Lymphocytes % 11 % (24-48) Monocytes % 2 % (0-10) Myelocytes % 1 % (0-0) Toxic Granulation Marked Platelet Estimate Adequate (ADEQUATE) Polychromasia Slight Anisocytosis Slight Prothrombin Time 13.1 SEC (11.7-14.0) Prothromb Time International Ratio 1.0 (0.8-1.1) Sodium Level 143 mmol/L (136-145) Potassium Level 3.5 mmol/L (3.5-5.1) Chloride Level 103 mmol/L (98-107) Carbon Dioxide Level 30 mmol/L (21-32) Anion Gap 10 (6-14) Blood Urea Nitrogen 9 mg/dL (7-20) Creatinine 1.0 mg/dL (0.6-1.0) Estimated GFR (Cockcroft-Gault) 57.8 BUN/Creatinine Ratio 9 (6-20) Glucose Level 103 mg/dL (70-99) Lactic Acid Level 1.3 mmol/L (0.4-2.0) 0.6 mmol/L (0.4-2.0) Calcium Level 8.9 mg/dL (8.5-10.1) Magnesium Level 1.5 mg/dL (1.8-2.4) Total Bilirubin 0.6 mg/dL (0.2-1.0) Aspartate Amino Transf (AST/SGOT) 23 U/L (15-37) Alanine Aminotransferase (ALT/SGPT) 28 U/L (14-59) Alkaline Phosphatase 124 U/L (46-116) Creatine Kinase 63 U/L (26-192) Creatine Kinase MB (Mass) < 0.5 ng/mL (0.0-3.6) Creatine Kinase MB Relative Index % (0-4) Troponin I Quantitative < 0.017 ng/mL (0.000-0.055) CE-Rnj-H-Type Natriuretic Peptide 231 pg/mL (0-124) Total Protein 7.2 g/dL (6.4-8.2) Albumin 3.0 g/dL (3.4-5.0) Albumin/Globulin Ratio 0.7 (1.0-1.7) Procalcitonin 2.42 ng/mL (0.00-0.10) Thyroid Stimulating Hormone (TSH) 1.004 uIU/mL (0.358-3.74) Influenza Type A Antigen Negative (NEGATIVE) Influenza Type B Antigen Negative (NEGATIVE) Urine Color Yellow Urine Clarity Clear Urine pH 6.0 Urine Specific [place] 1.015 Urine Protein Negative mg/dL (NEG-TRACE) Urine Glucose (UA) Negative mg/dL (NEG) Urine Ketones (Stick) Negative mg/dL (NEG) Urine Blood Negative (NEG) Urine Nitrite Negative (NEG) Urine Bilirubin Negative (NEG) Urine Urobilinogen Dipstick 0.2 mg/dL (0.2 mg/dL) Urine Leukocyte Esterase Negative (NEG) Urine RBC 0 /HPF (0-2) Urine WBC Occ /HPF (0-4) Urine Squamous Epithelial Cells Occ /LPF Urine Bacteria 0 /HPF (0-FEW) Urine Opiates Screen Pos (NEG) Urine Methadone Screen Neg (NEG) Urine Barbiturates Neg (NEG) Urine Phencyclidine Screen Neg (NEG) Urine Amphetamine/Methamphetamine Neg (NEG) Urine Benzodiazepines Screen Neg (NEG) Urine Cocaine Screen Neg (NEG) Urine Cannabinoids Screen Neg (NEG) Urine Ethyl Alcohol Neg (NEG) Test 10/28/18 20:44 10/28/18 22:20 10/29/18 01:20 10/29/18 04:00 Glucose (Fingerstick) 96 mg/dL (70-99) Troponin I Quantitative < 0.017 ng/mL (0.000-0.055) < 0.017 ng/mL (0.000-0.055) White Blood Count 14.0 x10^3/uL (4.0-11.0) Red Blood Count 3.28 x10^6/uL (3.50-5.40) Hemoglobin 9.4 g/dL (12.0-15.5) Hematocrit 28.9 % (36.0-47.0) Mean Corpuscular Volume 88 fL (79-100) Mean Corpuscular Hemoglobin 29 pg (25-35) Mean Corpuscular Hemoglobin Concent 33 g/dL (31-37) Red Cell Distribution Width 18.8 % (11.5-14.5) Platelet Count 233 x10^3/uL (140-400) Neutrophils (%) (Auto) 67 % (31-73) Lymphocytes (%) (Auto) 24 % (24-48) Monocytes (%) (Auto) 6 % (0-9) Eosinophils (%) (Auto) 2 % (0-3) Basophils (%) (Auto) 0 % (0-3) Neutrophils # (Auto) 9.4 x10^3/uL (1.8-7.7) Lymphocytes # (Auto) 3.4 x10^3/uL (1.0-4.8) Monocytes # (Auto) 0.8 x10^3/uL (0.0-1.1) Eosinophils # (Auto) 0.3 x10^3/uL (0.0-0.7) Basophils # (Auto) 0.1 x10^3/uL (0.0-0.2) Sodium Level 149 mmol/L (136-145) Potassium Level 3.2 mmol/L (3.5-5.1) Chloride Level 113 mmol/L (98-107) Carbon Dioxide Level 31 mmol/L (21-32) Anion Gap 5 (6-14) Blood Urea Nitrogen 9 mg/dL (7-20) Creatinine 0.9 mg/dL (0.6-1.0) Estimated GFR (Cockcroft-Gault) 65.2 Glucose Level 146 mg/dL (70-99) Calcium Level 7.8 mg/dL (8.5-10.1) Test 10/29/18 08:18 Glucose (Fingerstick) 116 mg/dL (70-99) Medications Current Medications Sodium Chloride 1,000 ml @ 1,860 mls/hr Q33M IV Last administered on 10/28/18at 16:55; Start 10/28/18 at 15:50; Stop 10/28/18 at 16:50; Status DC Piperacillin Sod/ Tazobactam Sod 4.5 gm/Sodium Chloride 100 ml @ 200 mls/hr 1X ONCE IV Last administered on 10/28/18at 16:22; Start 10/28/18 at 16:00; Stop 10/28/18 at 16:29; Status DC Vancomycin HCl (Vanco Per Pharmacy) 1 each 1X ONCE MC ; Start 10/28/18 at 16:00; Stop 10/29/18 at 08:28; Status DC Fentanyl Citrate (Fentanyl 2ml Vial) 50 mcg PRN Q15MIN PRN IV PAIN GREATER THAN 3/10 Last administered on 10/28/18at 17:01; Start 10/28/18 at 16:00; Stop 10/29/18 at 15:59 Aspirin (Daren Aspirin) 325 mg 1X ONCE PO Last administered on 10/28/18 16:22; Start 10/28/18 at 16:30; Stop 10/28/18 at 16:31; Status DC Nitroglycerin (Nitrostat) 0.4 mg PRN Q5MIN PRN SL CP RATING > 1/10 Last administered on 10/28/18 16:22; Start 10/28/18 at 16:00; Stop 10/29/18 at 15:59 Acetaminophen (Tylenol) 1,000 mg 1X ONCE PO Last administered on 10/28/18 16:22; Start 10/28/18 at 16:00; Stop 10/28/18 at 16:01; Status DC Vancomycin HCl 2 gm/Sodium Chloride 500 ml @ 250 mls/hr 1X ONCE IV Last administered on 10/28/18at 16:58; Start 10/28/18 at 17:00; Stop 10/28/18 at 19:03; Status DC Ondansetron HCl (Zofran) 4 mg PRN Q8HRS PRN IV NAUSEA/VOMITING; Start 10/28/18 at 19:00; Stop 10/29/18 at 18:59 Acetaminophen (Tylenol) 650 mg PRN Q4HRS PRN PO FEVER; Start 10/28/18 at 19:00; Stop 10/29/18 at 18:59 Sodium Chloride 1,000 ml @ 1,000 mls/hr 1X ONCE IV Last administered on 10/28/18at 19:10; Start 10/28/18 at 19:15; Stop 10/28/18 at 20:48; Status DC Linezolid/Dextrose 300 ml @ 300 mls/hr Q12HR IV Last administered on 10/28/18at 21:43; Start 10/28/18 at 21:00; Stop 10/29/18 at 08:28; Status DC Benzonatate (Tessalon Perle) 200 mg PRN Q6HRS PRN PO COUGH 2ND CHOICE Last administered on 10/29/18at 10:08; Start 10/28/18 at 23:00 Temazepam (Restoril) 15 mg PRN QHS PRN PO INSOMNIA Last administered on 10/28/18at 23:21; Start 10/28/18 at 23:00 Alprazolam (Xanax) 0.25 mg PRN Q8HRS PRN PO ANXIETY / AGITATION Last administered on 10/29/18 10:17; Start 10/28/18 at 23:00 Aspirin (Ecotrin) 81 mg DAILYWBKFT PO Last administered on 10/29/18at 10:08; Start 10/29/18 at 08:00 Atorvastatin Calcium (Lipitor) 40 mg QHS PO ; Start 10/29/18 at 21:00 Guaifenesin (Robitussin Dm) 10 ml PRN Q4HRS PRN PO COUGH 1ST CHOICE Last administered on 10/29/18at 10:17; Start 10/28/18 at 23:00 Ibuprofen (Motrin) 400 mg PRN TID PRN PO INFLAMMATION; Start 10/28/18 at 23:00 Albuterol/ Ipratropium (Duoneb) 3 ml RTQID NEB Last administered on 10/29/18 08:26; Start 10/29/18 at 08:00 Metformin HCl (Glucophage) 500 mg BIDWMEALS PO Last administered on 10/29/18at 10:08; Start 10/29/18 at 08:00 Nitroglycerin (Nitrostat) 0.4 mg PRN Q5MIN PRN SL CHEST PAIN; Start 10/28/18 at 23:00 Bupropion HCl (Wellbutrin Xl) 300 mg DAILY PO Last administered on 10/29/18at 10:08; Start 10/29/18 at 09:00 Duloxetine HCl (Cymbalta) 60 mg DAILY PO Last administered on 10/29/18at 10:08; Start 10/29/18 at 09:00 Non-Formulary Medication (Icosapent Ethyl (Vascepa)) 1 gm DAILY08 PO ; Start 10/29/18 at 08:00; Status UNV Pantoprazole Sodium (Protonix) 40 mg DAILYAC PO Last administered on 10/29/18at 06:24; Start 10/29/18 at 07:30 Non-Formulary Medication (Melatonin ) 10 mg HS PRN PO INSOMNIA; Start 10/28/18 at 23:00; Status UNV Fish Oil (Fish Oil) 1,000 mg DAILY PO Last administered on 10/29/18at 10:08; Start 10/29/18 at 09:00 Temazepam (Restoril) 15 mg PRN QHS PRN PO INSOMNIA; Start 10/28/18 at 23:00; Status UNV Benzonatate (Tessalon Perle) 200 mg PRN Q6HRS PO ; Start 10/28/18 at 23:00; Status UNV Meropenem 1 gm/ Sodium Chloride 100 ml @ 200 mls/hr Q8HRS IV Last administered on 10/29/18at 10:17; Start 10/29/18 at 09:00 Active Scripts Active NITROGLYCERIN SubLingual (Nitroglycerin) 0.4 Mg Tab.subl 0.4 Mg SL PRN Q5MIN PRN 30 Days Aspirin Ec (Aspirin) 81 Mg Tablet.dr 81 Mg PO DAILYWBKFT Alprazolam 0.25 Mg Tablet 0.25 Mg PO PRN Q8HRS PRN Atorvastatin Calcium 40 Mg Tablet 40 Mg PO QHS Guaifenesin Dm Syrup (Guaifenesin/Dextromethorphan) 5 Ml Syrup 10 Ml PO PRN Q4HRS PRN 10 Days Duoneb 0.5-3(2.5) Mg/3 Ml (Albuterol/Ipratropium) 3 Ml Ampul.neb 3 Ml NEB RTQID 30 Days Reported Metformin Hcl 500 Mg Tablet 500 Mg PO BID PRN Vascepa (Icosapent Ethyl) 1 Gm Capsule 1 Gm PO DAILY08 Melatonin 3 Mg Tablet 10 Mg PO HS PRN Ibuprofen 400 Mg Tablet 400 Mg PO PRN TID PRN Prevacid (Lansoprazole) 30 Mg Capsule. 1 Cap PO DAILY Lovaza ([place]-3 Acid Ethyl Esters) 1 Gm Capsule 1 Gm PO DAILY08 Wellbutrin Xl (Bupropion Hcl) 300 Mg Tab.er.24h 1 Tab PO DAILY Cymbalta (Duloxetine Hcl) 60 Mg Capsule. 1 Cap PO DAILY Vitals/I & O Vital Sign - Last 24 Hours 10/28/18 10/28/18 10/28/18 10/28/18 15:23 16:05 16:22 16:22 Temp 98.1 98.1 Pulse 105 98 97 Resp 20 24 20 B/P (MAP) 104/66 (79) 114/51 Pulse Ox 96 94 O2 Delivery Nasal Cannula O2 Flow Rate 2.0 10/28/18 10/28/18 10/28/18 10/28/18 16:35 16:59 17:01 17:05 Pulse 94 90 Resp 24 20 20 20 Pulse Ox 95 93 94 95 O2 Delivery Nasal Cannula Nasal Cannula O2 Flow Rate 2.0 2.0 10/28/18 10/28/18 10/28/18 10/28/18 17:35 18:05 18:35 19:05 Temp 97.7 97.7 Pulse 86 88 80 84 Resp 20 24 20 22 Pulse Ox 94 94 94 94 10/28/18 10/28/18 10/28/18 10/28/18 19:45 20:07 20:15 20:20 Temp 97.7 97.7 Pulse 75 76 78 Resp 22 22 18 B/P (MAP) 113/70 (84) Pulse Ox 94 95 97 O2 Delivery Nasal Cannula Nasal Cannula O2 Flow Rate 2.0 2.0 10/28/18 10/29/18 10/29/18 10/29/18 23:00 03:00 07:48 08:27 Temp 97.6 97.5 97.4 97.6 97.5 97.4 Pulse 82 79 90 Resp 18 18 16 B/P (MAP) 99/55 (70) 114/61 (78) 117/59 (78) Pulse Ox 93 96 95 95 O2 Delivery Room Air Room Air Room Air Room Air 10/29/18 10:33 Temp 97.4 97.4 Pulse 89 Resp 16 B/P (MAP) 134/63 (86) Pulse Ox 96 O2 Delivery Room Air Intake and Output 10/28/18 10/28/18 10/29/18 15:00 23:00 07:00 Intake Total 2960 ml 360 ml Output Total 400 ml 600 ml Balance 2560 ml -240 ml CRISTIAN BELLO MD Oct 29, 2018 10:45
--- NOTE | 2018-10-29 12:16 | CONS ---
DATE OF CONSULTATION: PULMONARY CONSULTATION ATTENDING PHYSICIAN: Dr. Srinivasan. REASON FOR CONSULTATION: Recurrent pneumonia. HISTORY OF PRESENT ILLNESS: The patient is a 53-year-old who has been a smoker for 40 years, quit a month ago. She has history of common variable immunoglobulin deficiency. She has been receiving once a month outpatient IgG infusions. The patient was hospitalized in September and at that time, she was diagnosed with pneumonia. She was treated with antibiotics and was subsequently discharged home. The patient comes back with increased shortness of breath, difficulty in breathing. She has a cough, which has been nonproductive and worsened. She had a subjective fever at home. While in the hospital, there has not been any fever spike. I have reviewed the patient's CT chest, which was done yesterday. Patient had areas of consolidation in the lower lobes, more on the right at this time than compared to previous CAT scan from September. The alveolar consolidation appears to be less on the left lower lobe. She denies any headaches, no nausea, vomiting, no diarrhea. She quit tobacco last month. PAST MEDICAL HISTORY: History of pneumonia, history of common variable immunoglobulin deficiency. PAST SURGICAL HISTORY: Cholecystectomy and hysterectomy. SOCIAL HISTORY: Positive for tobacco use for 40 years, quit last month. [place] No other pets at home. ALLERGIES: None. MEDICATIONS: Reviewed as listed in the MRAD including antibiotic, meropenem and DuoNeb. REVIEW OF SYSTEMS: Twelve-point system obtained. Pertinent positives discussed in my history of present illness, otherwise noncontributory. All systems that were negative were reviewed as well. FAMILY HISTORY: Noncontributory to lungs. PHYSICAL EXAMINATION: VITAL SIGNS: Reviewed. Afebrile. Blood pressure stable, pulse ox 95% on room air. NECK: Supple. LUNGS: With diminished breath sounds posteriorly. CARDIOVASCULAR: Regular rate. ABDOMEN: Soft, obese. EXTREMITIES: With no pitting edema. LABORATORY DATA: Reviewed. White cell count was 22.9, now 14.0, hemoglobin 9.4 and platelets are 233. BUN and creatinine is 9 and 0.9. IMPRESSION: 1. 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 She was treated for pneumonia in September and now comes in with recurrent pneumonia. Her CT chest findings are showing more consolidation in the right lower lobe compared to previous CAT scan and also infiltrates in the left lower lobe. She appears to be an immunocompromised patient and would benefit from a diagnostic bronchoscopy to rule out any resistant organisms and also to rule out other organisms such as nocardia, etc. it should be noted that shehas more recurrent infections since she has been on immunoglobulin infusions. ? some form of acute lung injury 2. Forty years of tobacco use, suspect underlying chronic obstructive pulmonary disease. RECOMMENDATIONS: 1. Discussed with the patient and also with Dr. Tristan Agarwal. We will proceed with bronchoscopy. All the risks and benefits were explained. She agreed to proceed with the procedure. It will be done tomorrow. 2. Continue broad spectrum antibiotics per Dr. Agarwal. 3. We will obtain records from her PCP regarding the immunoglobulin levels and the diagnosis. 4. Continue bronchodilators. 5. Further recommendations to follow after bronchoscopy. LAVONNE CAMPO MD DR: SHANNON/sarah JOB#: [id number] / [id number] JUAN
[2018-10-29 14:28] VITALS: BP 133/66
[2018-10-29 19:00] VITALS: BP 136/59
--- NOTE | 2018-10-29 19:25 | NUR ---
Pt in bed with c/o Nausea and pain to mid sternal chest at time of assessment will medicate pt. Poc explained to pt vss will resume care and continue to monitor pt. call light in reach.
[2018-10-29] MEDS: guaiFENesin DM 600/30MG 1 TAB TAB.ER.12H PO SCH (21:24)
[2018-10-29] MEDS: ONDANSETRON PF 4 MG/2 ML VIAL. IV PRN (21:24)
[2018-10-29] MEDS: ATORVASTATIN CALCIUM 40 MG TABLET. PO SCH (21:24)
[2018-10-29] MEDS: ACETAMINOPHEN/CODEINE 300/30MG TABLET. PO PRN (21:32)
[2018-10-29 22:43] VITALS: BP 133/60
[2018-10-29] MEDS: TEMAZEPAM 15 MG CAPSULE PO PRN (22:46)
[2018-10-30 02:53] VITALS: BP 117/64
[2018-10-30] MEDS: MEROPENEM 1 GM in IV NORMAL SALINE 100ML 100 ML IV SCH ×3 (06:11→22:09)
[2018-10-30 07:00] VITALS: BP 133/67
[2018-10-30] MEDS ORDERED: ONDANSETRON PF 4 MG/2 ML VIAL. IV PRN (07:00)
[2018-10-30] MEDS ORDERED: fentaNYL PF VIAL 100 MCG/2 ML VIAL IV PRN ×2 (07:00)
[2018-10-30] MEDS ORDERED: PROCHLORPERAZINE 10 MG/2 ML VIAL. IV PRN (07:00)
[2018-10-30] MEDS ORDERED: HYDROmorphone 2 MG/ML VIAL IV PRN (07:00)
[2018-10-30] MEDS ORDERED: MORPHINE SULFATE 2 MG/ML VIAL. IV PRN (07:00)
[2018-10-30] MEDS ORDERED: LIDOCAINE 1% PF 2 ML VIAL. ID PRN (07:00)
[2018-10-30] MEDS ORDERED: IV RINGERS,LACTATED 1000ML 1,000 ML IV SCH (07:00)
[2018-10-30] MEDS: IPRATRPIUM/ALBUTEROL 0.5/2.5MG 3 ML NEBU. NEB SCH ×4 (07:43→19:02)
--- NOTE | 2018-10-30 07:55 | PDOC ---
Infectious Disease Note Subjective Subjective pt is feeling ok, waiting for bronch ROS ROS no n/v/d/sob Vital Sign Vital Signs Vital Signs Date Time Temp Pulse Resp B/P (MAP) Pulse Ox O2 Delivery O2 Flow Rate FiO2 10/30/18 07:45 95 Room Air 10/30/18 02:53 98.0 82 12 117/64 (81) 98.0 10/29/18 08:00 2.0 Physical Exam PHYSICAL EXAM GENERAL: Alert, oriented female, not in distress. VITAL SIGNS: Stable. Afebrile. HEENT: NAD. NECK: Supple, no JVP, no lymphadenopathy. LUNGS: Clear. HEART: S1, S2 regular. ABDOMEN: Benign. EXTREMITIES: No edema, cyanosis. SKIN: Unremarkable. NEUROLOGIC: The patient is neurologically alert, awake and appropriate. No focal neurologic deficit. Labs Lab Laboratory Tests Test 10/29/18 08:18 10/29/18 11:38 10/29/18 16:53 10/29/18 20:31 Glucose (Fingerstick) 116 mg/dL (70-99) 165 mg/dL (70-99) 137 mg/dL (70-99) 125 mg/dL (70-99) Test 10/30/18 07:30 Glucose (Fingerstick) 115 mg/dL (70-99) Micro Microbiology 10/28/18 Blood Culture - Preliminary, Resulted NO GROWTH AFTER 1 DAY Objective Assessment 1. Symptoms of dizziness, fever, nausea of unclear etiology. She has not had any fever yet here. 2. Leukocytosis. 3. Bilateral patchy infiltrate 4. History of diagnosis of common variable immunodeficiency. 5. Diabetes. 6. Hypertension. 7. Recent cardiac cath with no significant coronary artery disease. Plan Plan of Care cont antibiotics bronch today d/w dr Forde yesterday VAL ARANDA MD Oct 30, 2018 07:55
[2018-10-30] MEDS ORDERED: LIDOCAINE 4% TOPICAL 50 ML SOLUTION. MM PRN (08:15)
[2018-10-30] MEDS ORDERED: LIDOCAINE 2% VISCOUS 100 ML BOTTLE. MM PRN (08:15)
[2018-10-30] MEDS ORDERED: EPINEPHrine 1 MG/ML VIAL INJ PRN (08:15)
[2018-10-30] MEDS ORDERED: LIDOCAINE 1% Multi-Dose 20 ML VIAL. INJ PRN (08:15)
--- NOTE | 2018-10-30 08:57 | PDOC ---
PROGRESS NOTES History of Present Illness History of Present Illness ASSESSMENT AND PLAN: Bilateral pneumonia and leukocytosis. obesity, morbid Patchy areas of consolidation in the lower lobes, as well as the right middle lobe and lingula. This is favored to be infectious versus inflammatory in etiology. Given distribution possible aspiration. 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 She was treated for pneumonia in September and now //// recurrent pneumonia Hepatic steatosis. Small hiatal hernia. admitted, IV antibiotics, zosyn breathing treatments, oxygen. iv steroids, home meds, DVT prophylaxis. Consult Dr. Forde. 36 MIN PT EXAM, CHART REVIEW, > 50% OF TIME SPENT WITH EXAM, CHART REVIEW, PT CARE COORDINATION PROCEDURE: Bronchoscopy. INDICATIONS: Recurrent pneumonia. DESCRIPTION OF PROCEDURE: Informed consent was obtained from the patient. She agreed to proceed with the procedure. Propofol was used by Anesthesia for sedation. Bronch was introduced through the oral route as the nasal passages were tight. Vocal cords moves equally with respiration. The trachea was entered. No tracheal lesions seen. Maryann sharp. Right lung was examined. Minimal light creamy secretions seen in the right mainstem, which were removed. No significant secretions seen in the right upper, right middle or right lower lobe. Bronchoalveolar lavage performed from right lower lobe. No endobronchial lesions seen. Bronch was introduced into the left lung. Creamy secretions in the left main stem bronchus. No endobronchial lesion seen in all the subsegments of left upper lobe, lingula and left lower lobe. Bronchoalveolar lavage performed from the left lower lobe. The patient tolerated the procedure well. IMPRESSION: 1. Creamy secretion seen on the left main stem bronchus and also minimally in the right main stem bronchus. 2. Bronchoalveolar lavage performed from the right lower lobe and left lower lobe. 3. No endobronchial lesion seen. 4. Follow the culture results. Vitals Vitals Vital Signs Date Time Temp Pulse Resp B/P (MAP) Pulse Ox O2 Delivery O2 Flow Rate FiO2 10/30/18 07:45 95 Room Air 10/30/18 07:00 97.7 97 12 133/67 (89) 97.7 10/29/18 08:00 2.0 Physical Exam Physical Exam GENERAL: Alert, oriented female, not in distress. VITAL SIGNS: Stable. Afebrile. HEENT: NAD. NECK: Supple, no JVP, no lymphadenopathy. LUNGS: Clear. HEART: S1, S2 regular. ABDOMEN: Benign. EXTREMITIES: No edema, cyanosis. SKIN: Unremarkable. NEUROLOGIC: The patient is neurologically alert, awake and appropriate. No focal neurologic deficit. General: Alert, Oriented X3, Cooperative, mild distress Heart: Regular rate Lungs: Crackles Abdomen: Normal bowel sounds, Soft Extremities: No clubbing, No cyanosis, No edema Skin: No significant lesion Labs LABS Laboratory Tests Test 10/29/18 11:38 10/29/18 16:53 10/29/18 20:31 10/30/18 07:30 Glucose (Fingerstick) 165 mg/dL (70-99) 137 mg/dL (70-99) 125 mg/dL (70-99) 115 mg/dL (70-99) Assessment and Plan Assessmemt and Plan Problems Medical Problems: (1) Chest pain Status: Acute (2) Leukocytosis Status: Acute (3) Pneumonia Status: Acute (4) Sepsis Status: Acute Comment Review of Relevant I have reviewed the following items aide (where applicable) has been applied. Labs Laboratory Tests Test 10/28/18 15:46 10/28/18 17:07 10/28/18 17:30 10/28/18 19:45 White Blood Count 22.9 x10^3/uL (4.0-11.0) Red Blood Count 4.04 x10^6/uL (3.50-5.40) Hemoglobin 11.3 g/dL (12.0-15.5) Hematocrit 34.8 % (36.0-47.0) Mean Corpuscular Volume 86 fL (79-100) Mean Corpuscular Hemoglobin 28 pg (25-35) Mean Corpuscular Hemoglobin Concent 33 g/dL (31-37) Red Cell Distribution Width 17.8 % (11.5-14.5) Platelet Count 296 x10^3/uL (140-400) Neutrophils (%) (Auto) 82 % (31-73) Lymphocytes (%) (Auto) 14 % (24-48) Monocytes (%) (Auto) 4 % (0-9) Eosinophils (%) (Auto) 0 % (0-3) Basophils (%) (Auto) 1 % (0-3) Neutrophils # (Auto) 18.6 x10^3/uL (1.8-7.7) Lymphocytes # (Auto) 3.1 x10^3/uL (1.0-4.8) Monocytes # (Auto) 0.9 x10^3/uL (0.0-1.1) Eosinophils # (Auto) 0.1 x10^3/uL (0.0-0.7) Basophils # (Auto) 0.1 x10^3/uL (0.0-0.2) Segmented Neutrophils % 81 % (35-66) Band Neutrophils % 5 % (0-9) Lymphocytes % 11 % (24-48) Monocytes % 2 % (0-10) Myelocytes % 1 % (0-0) Toxic Granulation Marked Platelet Estimate Adequate (ADEQUATE) Polychromasia Slight Anisocytosis Slight Prothrombin Time 13.1 SEC (11.7-14.0) Prothromb Time International Ratio 1.0 (0.8-1.1) Sodium Level 143 mmol/L (136-145) Potassium Level 3.5 mmol/L (3.5-5.1) Chloride Level 103 mmol/L (98-107) Carbon Dioxide Level 30 mmol/L (21-32) Anion Gap 10 (6-14) Blood Urea Nitrogen 9 mg/dL (7-20) Creatinine 1.0 mg/dL (0.6-1.0) Estimated GFR (Cockcroft-Gault) 57.8 BUN/Creatinine Ratio 9 (6-20) Glucose Level 103 mg/dL (70-99) Lactic Acid Level 1.3 mmol/L (0.4-2.0) 0.6 mmol/L (0.4-2.0) Calcium Level 8.9 mg/dL (8.5-10.1) Magnesium Level 1.5 mg/dL (1.8-2.4) Total Bilirubin 0.6 mg/dL (0.2-1.0) Aspartate Amino Transf (AST/SGOT) 23 U/L (15-37) Alanine Aminotransferase (ALT/SGPT) 28 U/L (14-59) Alkaline Phosphatase 124 U/L (46-116) Creatine Kinase 63 U/L (26-192) Creatine Kinase MB (Mass) < 0.5 ng/mL (0.0-3.6) Creatine Kinase MB Relative Index % (0-4) Troponin I Quantitative < 0.017 ng/mL (0.000-0.055) [id number]-Type Natriuretic Peptide 231 pg/mL (0-124) Total Protein 7.2 g/dL (6.4-8.2) Albumin 3.0 g/dL (3.4-5.0) Albumin/Globulin Ratio 0.7 (1.0-1.7) Procalcitonin 2.42 ng/mL (0.00-0.10) Thyroid Stimulating Hormone (TSH) 1.004 uIU/mL (0.358-3.74) Influenza Type A Antigen Negative (NEGATIVE) Influenza Type B Antigen Negative (NEGATIVE) Urine Color Yellow Urine Clarity Clear Urine pH 6.0 Urine Specific [place] 1.015 Urine Protein Negative mg/dL (NEG-TRACE) Urine Glucose (UA) Negative mg/dL (NEG) Urine Ketones (Stick) Negative mg/dL (NEG) Urine Blood Negative (NEG) Urine Nitrite Negative (NEG) Urine Bilirubin Negative (NEG) Urine Urobilinogen Dipstick 0.2 mg/dL (0.2 mg/dL) Urine Leukocyte Esterase Negative (NEG) Urine RBC 0 /HPF (0-2) Urine WBC Occ /HPF (0-4) Urine Squamous Epithelial Cells Occ /LPF Urine Bacteria 0 /HPF (0-FEW) Urine Opiates Screen Pos (NEG) Urine Methadone Screen Neg (NEG) Urine Barbiturates Neg (NEG) Urine Phencyclidine Screen Neg (NEG) Urine Amphetamine/Methamphetamine Neg (NEG) Urine Benzodiazepines Screen Neg (NEG) Urine Cocaine Screen Neg (NEG) Urine Cannabinoids Screen Neg (NEG) Urine Ethyl Alcohol Neg (NEG) Test 10/28/18 20:44 10/28/18 22:20 10/29/18 01:20 10/29/18 04:00 Glucose (Fingerstick) 96 mg/dL (70-99) Troponin I Quantitative < 0.017 ng/mL (0.000-0.055) < 0.017 ng/mL (0.000-0.055) White Blood Count 14.0 x10^3/uL (4.0-11.0) Red Blood Count 3.28 x10^6/uL (3.50-5.40) Hemoglobin 9.4 g/dL (12.0-15.5) Hematocrit 28.9 % (36.0-47.0) Mean Corpuscular Volume 88 fL (79-100) Mean Corpuscular Hemoglobin 29 pg (25-35) Mean Corpuscular Hemoglobin Concent 33 g/dL (31-37) Red Cell Distribution Width 18.8 % (11.5-14.5) Platelet Count 233 x10^3/uL (140-400) Neutrophils (%) (Auto) 67 % (31-73) Lymphocytes (%) (Auto) 24 % (24-48) Monocytes (%) (Auto) 6 % (0-9) Eosinophils (%) (Auto) 2 % (0-3) Basophils (%) (Auto) 0 % (0-3) Neutrophils # (Auto) 9.4 x10^3/uL (1.8-7.7) Lymphocytes # (Auto) 3.4 x10^3/uL (1.0-4.8) Monocytes # (Auto) 0.8 x10^3/uL (0.0-1.1) Eosinophils # (Auto) 0.3 x10^3/uL (0.0-0.7) Basophils # (Auto) 0.1 x10^3/uL (0.0-0.2) Sodium Level 149 mmol/L (136-145) Potassium Level 3.2 mmol/L (3.5-5.1) Chloride Level 113 mmol/L (98-107) Carbon Dioxide Level 31 mmol/L (21-32) Anion Gap 5 (6-14) Blood Urea Nitrogen 9 mg/dL (7-20) Creatinine 0.9 mg/dL (0.6-1.0) Estimated GFR (Cockcroft-Gault) 65.2 Glucose Level 146 mg/dL (70-99) Calcium Level 7.8 mg/dL (8.5-10.1) Test 10/29/18 08:18 10/29/18 11:38 10/29/18 16:53 10/29/18 20:31 Glucose (Fingerstick) 116 mg/dL (70-99) 165 mg/dL (70-99) 137 mg/dL (70-99) 125 mg/dL (70-99) Test 10/30/18 07:30 Glucose (Fingerstick) 115 mg/dL (70-99) Laboratory Tests Test 10/29/18 11:38 10/29/18 16:53 10/29/18 20:31 10/30/18 07:30 Glucose (Fingerstick) 165 mg/dL (70-99) 137 mg/dL (70-99) 125 mg/dL (70-99) 115 mg/dL (70-99) Microbiology 10/28/18 Blood Culture - Preliminary, Resulted NO GROWTH AFTER 1 DAY Medications Current Medications Sodium Chloride 1,000 ml @ 1,860 mls/hr Q33M IV Last administered on 10/28/18 16:55; Start 10/28/18 at 15:50; Stop 10/28/18 at 16:50; Status DC Piperacillin Sod/ Tazobactam Sod 4.5 gm/Sodium Chloride 100 ml @ 200 mls/hr 1X ONCE IV Last administered on 10/28/18 16:22; Start 10/28/18 at 16:00; Stop 10/28/18 at 16:29; Status DC Vancomycin HCl (Vanco Per Pharmacy) 1 each 1X ONCE MC ; Start 10/28/18 at 16:00; Stop 10/29/18 at 08:28; Status DC Fentanyl Citrate (Fentanyl 2ml Vial) 50 mcg PRN Q15MIN PRN IV PAIN GREATER THAN 3/10 Last administered on 10/28/18 17:01; Start 10/28/18 at 16:00; Stop 10/29/18 at 15:59; Status DC Aspirin (Daren Aspirin) 325 mg 1X ONCE PO Last administered on 10/28/18 16:22; Start 10/28/18 at 16:30; Stop 10/28/18 at 16:31; Status DC Nitroglycerin (Nitrostat) 0.4 mg PRN Q5MIN PRN SL CP RATING > 1/10 Last administered on 10/28/18 16:22; Start 10/28/18 at 16:00; Stop 10/29/18 at 14:23; Status DC Acetaminophen (Tylenol) 1,000 mg 1X ONCE PO Last administered on 10/28/18 16:22; Start 10/28/18 at 16:00; Stop 10/28/18 at 16:01; Status DC Vancomycin HCl 2 gm/Sodium Chloride 500 ml @ 250 mls/hr 1X ONCE IV Last administered on 10/28/18 16:58; Start 10/28/18 at 17:00; Stop 10/28/18 at 19:03; Status DC Ondansetron HCl (Zofran) 4 mg PRN Q8HRS PRN IV NAUSEA/VOMITING; Start 10/28/18 at 19:00; Stop 10/29/18 at 18:59; Status DC Acetaminophen (Tylenol) 650 mg PRN Q4HRS PRN PO FEVER Last administered on 10/29/18 14:00; Start 10/28/18 at 19:00; Stop 10/29/18 at 18:59; Status DC Sodium Chloride 1,000 ml @ 1,000 mls/hr 1X ONCE IV Last administered on 19:10; Start 10/28/18 at 19:15; Stop 10/28/18 at 20:48; Status DC Linezolid/Dextrose 300 ml @ 300 mls/hr Q12HR IV Last administered on 10/28/18 21:43; Start 10/28/18 at 21:00; Stop 10/29/18 at 08:28; Status DC Benzonatate (Tessalon Perle) 200 mg PRN Q6HRS PRN PO COUGH 2ND CHOICE Last administered on 10/29/18 21:25; Start 10/28/18 at 23:00 Temazepam (Restoril) 15 mg PRN QHS PRN PO INSOMNIA Last administered on 10/29/18 22:46; Start 10/28/18 at 23:00 Alprazolam (Xanax) 0.25 mg PRN Q8HRS PRN PO ANXIETY / AGITATION Last administered on 10/29/18 10:17; Start 10/28/18 at 23:00 Aspirin (Ecotrin) 81 mg DAILYWBKFT PO Last administered on 10/29/18 10:08; Start 10/29/18 at 08:00 Atorvastatin Calcium (Lipitor) 40 mg QHS PO Last administered on 10/29/18 21:25; Start 10/29/18 at 21:00 Guaifenesin (Robitussin Dm) 10 ml PRN Q4HRS PRN PO COUGH 1ST CHOICE Last administered on 10/29/18 10:17; Start 10/28/18 at 23:00 Ibuprofen (Motrin) 400 mg PRN TID PRN PO INFLAMMATION; Start 10/28/18 at 23:00 Albuterol/ Ipratropium (Duoneb) 3 ml RTQID NEB Last administered on 10/30/18at 07:45; Start 10/29/18 at 08:00 Metformin HCl (Glucophage) 500 mg BIDWMEALS PO Last administered on 10/29/18at 17:29; Start 10/29/18 at 08:00 Nitroglycerin (Nitrostat) 0.4 mg PRN Q5MIN PRN SL CHEST PAIN; Start 10/28/18 at 23:00 Bupropion HCl (Wellbutrin Xl) 300 mg DAILY PO Last administered on 10/29/18at 10:08; Start 10/29/18 at 09:00 Duloxetine HCl (Cymbalta) 60 mg DAILY PO Last administered on 10/29/18 10:08; Start 10/29/18 at 09:00 Non-Formulary Medication (Icosapent Ethyl (Vascepa)) 1 gm DAILY08 PO ; Start 10/29/18 at 08:00; Status UNV Pantoprazole Sodium (Protonix) 40 mg DAILYAC PO Last administered on 10/29/18at 06:24; Start 10/29/18 at 07:30 Non-Formulary Medication (Melatonin ) 10 mg HS PRN PO INSOMNIA; Start 10/28/18 at 23:00; Status UNV Fish Oil (Fish Oil) 1,000 mg DAILY PO Last administered on 10/29/18at 10:08; Start 10/29/18 at 09:00 Temazepam (Restoril) 15 mg PRN QHS PRN PO INSOMNIA; Start 10/28/18 at 23:00; Status UNV Benzonatate (Tessalon Perle) 200 mg PRN Q6HRS PO ; Start 10/28/18 at 23:00; Status UNV Meropenem 1 gm/ Sodium Chloride 100 ml @ 200 mls/hr Q8HRS IV Last administered on 10/30/18at 06:11; Start 10/29/18 at 09:00 Guaifenesin (MUCINEX ER with DM) 2 tab BID PO Last administered on 10/29/18at 21: 25; Start 10/29/18 at 21:00 Ondansetron HCl (Zofran) 4 mg PRN Q6HRS PRN IV NAUSEA/VOMITING; Start 10/30/18 at 07:00; Stop 10/31/18 at 06:59 Fentanyl Citrate (Fentanyl 2ml Vial) 25 mcg PRN Q5MIN PRN IV MILD PAIN 1-3; Start 10/30/18 at 07:00; Stop 10/31/18 at 06:59 Fentanyl Citrate (Fentanyl 2ml Vial) 50 mcg PRN Q5MIN PRN IV MODERATE TO SEVERE PAIN; Start 10/30/18 at 07:00; Stop 10/31/18 at 06:59 Morphine Sulfate (Morphine Sulfate) 1 mg PRN Q10MIN PRN IV SEVERE PAIN 7-10; Start 10/30/18 at 07:00; Stop 10/31/18 at 06:59 Ringer's Solution 1,000 ml @ 30 mls/hr Q24H IV ; Start 10/30/18 at 07:00; Stop 10/30/18 at 18:59 Lidocaine HCl (Xylocaine-Mpf 1% 2ml Vial) 2 ml PRN 1X PRN ID PRIOR TO IV START; Start 10/30/18 at 07:00; Stop 10/31/18 at 06:59 Hydromorphone HCl (Dilaudid) 0.5 mg PRN Q10MIN PRN IV SEV PAIN, Second choice; Start 10/30/18 at 07:00; Stop 10/31/18 at 06:59 Prochlorperazine Edisylate (Compazine) 5 mg PACU PRN PRN IV NAUSEA, MRX1; Start 10/30/18 at 07:00; Stop 10/31/18 at 06:59 Acetaminophen/ Codeine Phosphate (Tylenol #3) 2 tab PRN Q6HRS PRN PO MODERATE PAIN Last administered on 10/29/18at 21:32; Start 10/29/18 at 18:00 Ondansetron HCl (Zofran) 4 mg PRN Q6HRS PRN IV NAUSEA/VOMITING Last administered on 10/29/18at 21:25; Start 10/29/18 at 20:15 Lidocaine HCl (Lidocaine 2% Viscous) 100 ml PRN 1X PRN MM MOUTH PAIN; Start 10/30/18 at 08:15; Stop 10/31/18 at 08:14; Status UNV Lidocaine HCl (Lidocaine 1% 20ml Vial) 20 ml PRN 1X PRN INJ SEE COMMENTS; Start 10/30/18 at 08:15; Stop 10/31/18 at 08:14; Status UNV Epinephrine HCl (Adrenalin) 1 mg PRN 1X PRN INJ SEE COMMENTS; Start 10/30/18 at 08:15; Stop 10/31/18 at 08:14; Status UNV Lidocaine HCl 50 ml PRN 1X PRN MM SEE COMMENTS; Start 10/30/18 at 08:15; Stop 10/31/18 at 08:14; Status UNV Active Scripts Active NITROGLYCERIN SubLingual (Nitroglycerin) 0.4 Mg Tab.subl 0.4 Mg SL PRN Q5MIN PRN 30 Days Aspirin Ec (Aspirin) 81 Mg Tablet.dr 81 Mg PO DAILYWBKFT Alprazolam 0.25 Mg Tablet 0.25 Mg PO PRN Q8HRS PRN Atorvastatin Calcium 40 Mg Tablet 40 Mg PO QHS Guaifenesin Dm Syrup (Guaifenesin/Dextromethorphan) 5 Ml Syrup 10 Ml PO PRN Q4HRS PRN 10 Days Duoneb 0.5-3(2.5) Mg/3 Ml (Albuterol/Ipratropium) 3 Ml Ampul.neb 3 Ml NEB RTQID 30 Days Reported Metformin Hcl 500 Mg Tablet 500 Mg PO BID PRN Vascepa (Icosapent Ethyl) 1 Gm Capsule 1 Gm PO DAILY08 Melatonin 3 Mg Tablet 10 Mg PO HS PRN Ibuprofen 400 Mg Tablet 400 Mg PO PRN TID PRN Prevacid (Lansoprazole) 30 Mg Capsule. 1 Cap PO DAILY [place] ([place]-3 Acid Ethyl Esters) 1 Gm Capsule 1 Gm PO DAILY08 Wellbutrin Xl (Bupropion Hcl) 300 Mg Tab.er.24h 1 Tab PO DAILY Cymbalta (Duloxetine Hcl) 60 Mg Capsule. 1 Cap PO DAILY Vitals/I & O Vital Sign - Last 24 Hours 10/29/18 10/29/18 10/29/18 10/29/18 10:33 11:22 14:28 15:07 Temp 97.4 98.3 97.4 98.3 Pulse 89 100 Resp 16 16 B/P (MAP) 134/63 (86) 133/66 (88) Pulse Ox 96 95 94 O2 Delivery Room Air Room Air Room Air Room Air 9/4/19 9/4/19 9/4/19 9/4/19 19:00 19:25 19:49 21:32 Temp 98.1 98.1 Pulse 110 Resp 16 16 B/P (MAP) 136/59 (84) Pulse Ox 93 O2 Delivery Room Air Room Air Room Air Room Air 10/29/18 10/29/18 10/30/18 10/30/18 22:35 22:43 02:53 07:00 Temp 98.0 98.0 97.7 98.0 98.0 97.7 Pulse 102 82 97 Resp 16 18 12 12 B/P (MAP) 133/60 (84) 117/64 (81) 133/67 (89) Pulse Ox 97 94 97 91 O2 Delivery Room Air Room Air Room Air Room Air 10/30/18 07:45 Pulse Ox 95 O2 Delivery Room Air Intake and Output 10/29/18 10/29/18 10/30/18 15:00 23:00 07:00 Intake Total 540 ml 1800 ml 100 ml Output Total 1200 ml Balance 540 ml 600 ml 100 ml CRISTIAN BELLO MD Oct 30, 2018 08:56
--- NOTE | 2018-10-30 10:08 | NUR ---
Pt left at approx 1005 for Bronchoscopy.
[2018-10-30 11:00] VITALS: BP 145/76
--- NOTE | 2018-10-30 11:16 | OP ---
DATE OF SURGERY: PROCEDURE: Bronchoscopy. INDICATIONS: Recurrent pneumonia. DESCRIPTION OF PROCEDURE: Informed consent was obtained from the patient. She agreed to proceed with the procedure. Propofol was used by Anesthesia for sedation. Bronch was introduced through the oral route as the nasal passages were tight. Vocal cords moves equally with respiration. The trachea was entered. No tracheal lesions seen. Maryann sharp. Right lung was examined. Minimal light creamy secretions seen in the right mainstem, which were removed. No significant secretions seen in the right upper, right middle or right lower lobe. Bronchoalveolar lavage performed from right lower lobe. No endobronchial lesions seen. Bronch was introduced into the left lung. Creamy secretions in the left main stem bronchus. No endobronchial lesion seen in all the subsegments of left upper lobe, lingula and left lower lobe. Bronchoalveolar lavage performed from the left lower lobe. The patient tolerated the procedure well. IMPRESSION: 1. Creamy secretion seen on the left main stem bronchus and also minimally in the right main stem bronchus. 2. Bronchoalveolar lavage performed from the right lower lobe and left lower lobe. 3. No endobronchial lesion seen. 4. Follow the culture results. LAVONNE CAMPO MD DR: SHANNON/sarah JOB#: [id number] / [id number]
--- NOTE | 2018-10-30 12:01 | PDOC ---
PULMONARY PROGRESS NOTES Subjective no change still dry cough Vitals Vital Signs Date Time Temp Pulse Resp B/P (MAP) Pulse Ox O2 Delivery O2 Flow Rate FiO2 10/30/18 11:41 100 20 145/82 97 Room Air 10/30/18 11:10 98.0 10 98.0 General: Alert, No acute distress Lungs: Other (decrease bs) Cardiovascular: S1, S2 Abdomen: Soft, Non-tender Neuro Exam: Alert Extremities: No Edema Skin: Warm Labs Laboratory Tests Test 10/28/18 15:46 10/28/18 17:07 10/28/18 17:30 10/28/18 19:45 White Blood Count 22.9 x10^3/uL (4.0-11.0) Red Blood Count 4.04 x10^6/uL (3.50-5.40) Hemoglobin 11.3 g/dL (12.0-15.5) Hematocrit 34.8 % (36.0-47.0) Mean Corpuscular Volume 86 fL (79-100) Mean Corpuscular Hemoglobin 28 pg (25-35) Mean Corpuscular Hemoglobin Concent 33 g/dL (31-37) Red Cell Distribution Width 17.8 % (11.5-14.5) Platelet Count 296 x10^3/uL (140-400) Neutrophils (%) (Auto) 82 % (31-73) Lymphocytes (%) (Auto) 14 % (24-48) Monocytes (%) (Auto) 4 % (0-9) Eosinophils (%) (Auto) 0 % (0-3) Basophils (%) (Auto) 1 % (0-3) Neutrophils # (Auto) 18.6 x10^3/uL (1.8-7.7) Lymphocytes # (Auto) 3.1 x10^3/uL (1.0-4.8) Monocytes # (Auto) 0.9 x10^3/uL (0.0-1.1) Eosinophils # (Auto) 0.1 x10^3/uL (0.0-0.7) Basophils # (Auto) 0.1 x10^3/uL (0.0-0.2) Segmented Neutrophils % 81 % (35-66) Band Neutrophils % 5 % (0-9) Lymphocytes % 11 % (24-48) Monocytes % 2 % (0-10) Myelocytes % 1 % (0-0) Toxic Granulation Marked Platelet Estimate Adequate (ADEQUATE) Polychromasia Slight Anisocytosis Slight Prothrombin Time 13.1 SEC (11.7-14.0) Prothromb Time International Ratio 1.0 (0.8-1.1) Sodium Level 143 mmol/L (136-145) Potassium Level 3.5 mmol/L (3.5-5.1) Chloride Level 103 mmol/L (98-107) Carbon Dioxide Level 30 mmol/L (21-32) Anion Gap 10 (6-14) Blood Urea Nitrogen 9 mg/dL (7-20) Creatinine 1.0 mg/dL (0.6-1.0) Estimated GFR (Cockcroft-Gault) 57.8 BUN/Creatinine Ratio 9 (6-20) Glucose Level 103 mg/dL (70-99) Lactic Acid Level 1.3 mmol/L (0.4-2.0) 0.6 mmol/L (0.4-2.0) Calcium Level 8.9 mg/dL (8.5-10.1) Magnesium Level 1.5 mg/dL (1.8-2.4) Total Bilirubin 0.6 mg/dL (0.2-1.0) Aspartate Amino Transf (AST/SGOT) 23 U/L (15-37) Alanine Aminotransferase (ALT/SGPT) 28 U/L (14-59) Alkaline Phosphatase 124 U/L (46-116) Creatine Kinase 63 U/L (26-192) Creatine Kinase MB (Mass) < 0.5 ng/mL (0.0-3.6) Creatine Kinase MB Relative Index % (0-4) Troponin I Quantitative < 0.017 ng/mL (0.000-0.055) EB-Khy-[id number]-Type Natriuretic Peptide 231 pg/mL (0-124) Total Protein 7.2 g/dL (6.4-8.2) Albumin 3.0 g/dL (3.4-5.0) Albumin/Globulin Ratio 0.7 (1.0-1.7) Procalcitonin 2.42 ng/mL (0.00-0.10) Thyroid Stimulating Hormone (TSH) 1.004 uIU/mL (0.358-3.74) Influenza Type A Antigen Negative (NEGATIVE) Influenza Type B Antigen Negative (NEGATIVE) Urine Color Yellow Urine Clarity Clear Urine pH 6.0 Urine Specific [place] 1.015 Urine Protein Negative mg/dL (NEG-TRACE) Urine Glucose (UA) Negative mg/dL (NEG) Urine Ketones (Stick) Negative mg/dL (NEG) Urine Blood Negative (NEG) Urine Nitrite Negative (NEG) Urine Bilirubin Negative (NEG) Urine Urobilinogen Dipstick 0.2 mg/dL (0.2 mg/dL) Urine Leukocyte Esterase Negative (NEG) Urine RBC 0 /HPF (0-2) Urine WBC Occ /HPF (0-4) Urine Squamous Epithelial Cells Occ /LPF Urine Bacteria 0 /HPF (0-FEW) Urine Opiates Screen Pos (NEG) Urine Methadone Screen Neg (NEG) Urine Barbiturates Neg (NEG) Urine Phencyclidine Screen Neg (NEG) Urine Amphetamine/Methamphetamine Neg (NEG) Urine Benzodiazepines Screen Neg (NEG) Urine Cocaine Screen Neg (NEG) Urine Cannabinoids Screen Neg (NEG) Urine Ethyl Alcohol Neg (NEG) Test 10/28/18 20:44 10/28/18 22:20 10/29/18 01:20 10/29/18 04:00 Glucose (Fingerstick) 96 mg/dL (70-99) Troponin I Quantitative < 0.017 ng/mL (0.000-0.055) < 0.017 ng/mL (0.000-0.055) White Blood Count 14.0 x10^3/uL (4.0-11.0) Red Blood Count 3.28 x10^6/uL (3.50-5.40) Hemoglobin 9.4 g/dL (12.0-15.5) Hematocrit 28.9 % (36.0-47.0) Mean Corpuscular Volume 88 fL (79-100) Mean Corpuscular Hemoglobin 29 pg (25-35) Mean Corpuscular Hemoglobin Concent 33 g/dL (31-37) Red Cell Distribution Width 18.8 % (11.5-14.5) Platelet Count 233 x10^3/uL (140-400) Neutrophils (%) (Auto) 67 % (31-73) Lymphocytes (%) (Auto) 24 % (24-48) Monocytes (%) (Auto) 6 % (0-9) Eosinophils (%) (Auto) 2 % (0-3) Basophils (%) (Auto) 0 % (0-3) Neutrophils # (Auto) 9.4 x10^3/uL (1.8-7.7) Lymphocytes # (Auto) 3.4 x10^3/uL (1.0-4.8) Monocytes # (Auto) 0.8 x10^3/uL (0.0-1.1) Eosinophils # (Auto) 0.3 x10^3/uL (0.0-0.7) Basophils # (Auto) 0.1 x10^3/uL (0.0-0.2) Sodium Level 149 mmol/L (136-145) Potassium Level 3.2 mmol/L (3.5-5.1) Chloride Level 113 mmol/L (98-107) Carbon Dioxide Level 31 mmol/L (21-32) Anion Gap 5 (6-14) Blood Urea Nitrogen 9 mg/dL (7-20) Creatinine 0.9 mg/dL (0.6-1.0) Estimated GFR (Cockcroft-Gault) 65.2 Glucose Level 146 mg/dL (70-99) Calcium Level 7.8 mg/dL (8.5-10.1) Test 10/29/18 08:18 10/29/18 11:38 10/29/18 16:53 10/29/18 20:31 Glucose (Fingerstick) 116 mg/dL (70-99) 165 mg/dL (70-99) 137 mg/dL (70-99) 125 mg/dL (70-99) Test 10/30/18 07:30 Glucose (Fingerstick) 115 mg/dL (70-99) Laboratory Tests Test 10/29/18 16:53 10/29/18 20:31 10/30/18 07:30 Glucose (Fingerstick) 137 mg/dL (70-99) 125 mg/dL (70-99) 115 mg/dL (70-99) Medications Active Scripts Medications Dose Route/Sig Max Daily Dose Days Date Category NITROGLYCERIN SubLingual (Nitroglycerin) 0.4 Mg Tab.subl 0.4 Mg SL PRN Q5MIN PRN 30 10/21/18 Rx Aspirin Ec (Aspirin) 81 Mg Tablet.dr 81 Mg PO DAILYWBKFT 10/21/18 Rx Alprazolam 0.25 Mg Tablet 0.25 Mg PO PRN Q8HRS PRN 10/21/18 Rx Atorvastatin Calcium 40 Mg Tablet 40 Mg PO QHS 10/21/18 Rx Guaifenesin Dm Syrup (Guaifenesin/Dextromethorphan) 5 Ml Syrup 10 Ml PO PRN Q4HRS PRN 10 10/04/18 Rx Metformin Hcl 500 Mg Tablet 500 Mg PO BID PRN 09/29/18 Reported Vascepa (Icosapent Ethyl) 1 Gm Capsule 1 Gm PO DAILY08 09/29/18 Reported Duoneb 0.5-3(2.5) Mg/3 Ml (Albuterol/Ipratropium) 3 Ml Ampul.neb 3 Ml NEB RTQID 30 05/30/17 Rx Melatonin 3 Mg Tablet 10 Mg PO HS PRN 05/28/17 Reported Ibuprofen 400 Mg Tablet 400 Mg PO PRN TID PRN 05/28/17 Reported Prevacid (Lansoprazole) 30 Mg Capsule.dr Brito Cap PO DAILY 05/28/17 Reported Lovaza ([place]-3 Acid Ethyl Esters) 1 Gm Capsule 1 Gm PO DAILY08 05/28/17 Reported Wellbutrin Xl (Bupropion Hcl) 300 Mg Tab.er.24h 1 Tab PO DAILY 05/28/17 Reported Cymbalta (Duloxetine Hcl) 60 Mg Capsule.dr Brito Cap PO DAILY 05/28/17 Reported Impression . 1. 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 She was treated for pneumonia in September and now comes in with recurrent pneumonia. Her CT chest findings are showing more consolidation in the right lower lobe compared to previous CAT scan and also infiltrates in the left lower lobe. She appears to be an immunocompromised patient and would benefit from a diagnostic bronchoscopy to rule out any resistant organisms and also to rule out other organisms such as nocardia, etc. it should be noted that she has more recurrent infections since she has been on immunoglobulin infusions. ? some form of acute lung injury 2. Forty years of tobacco use, suspect underlying chronic obstructive pulmonary disease. Plan . 1. Discussed with the patient and also with Dr. Tristan Agarwal. We will proceed with bronchoscopy. All the risks and benefits were explained. She agreed to proceed with the procedure. 2. Continue broad spectrum antibiotics per Dr. Agarwal. 3. We will obtain records from her PCP regarding the immunoglobulin levels and the diagnosis. 4. Continue bronchodilators. 5. Further recommendations to follow after bronchoscopy. LAVONNE CAMPO MD Oct 30, 2018 12:01
[2018-10-30] MEDS: guaiFENesin DM 600/30MG 1 TAB TAB.ER.12H PO SCH ×2 (14:11→20:45)
[2018-10-30] MEDS: buPROPion XL 150 MG TAB.ER.24H. PO SCH (14:11)
[2018-10-30] MEDS: OMEGA-3 FATTY ACIDS/FISH OIL 1,000 MG CAPSULE. PO SCH (14:11)
[2018-10-30] MEDS: PANTOPRAZOLE 40 MG TABLET.DR. PO SCH (14:11)
[2018-10-30] MEDS: ASPIRIN ENTERIC COATED 81 MG TABLET.DR. PO SCH (14:12)
[2018-10-30] MEDS: DULoxetine HCL 30 MG CAPSULE.DR PO SCH (14:12)
[2018-10-30] MEDS: metFORMIN 500 MG TABLET PO SCH ×2 (14:12→14:19)
[2018-10-30] MEDS: guaiFENesin DM 200MG/20MG 10 ML SYRUP PO PRN (14:23)
[2018-10-30] MEDS: ONDANSETRON PF 4 MG/2 ML VIAL. IV PRN (14:24)
[2018-10-30] MEDS: BENZONATATE 100 MG CAPSULE. PO PRN ×2 (14:24→20:45)
[2018-10-30] MEDS: ACETAMINOPHEN/CODEINE 300/30MG TABLET. PO PRN (14:26)
[2018-10-30] MEDS ORDERED: PHENOL ORAL SPRAY 177ML BOTTLE. PO PRN (14:30)
--- NOTE | 2018-10-30 14:39 | NUR ---
Pt returned from Bronchoscopy at approx 1200. Patients gag reflex checked at approx 2460-4130 and was not intact at that time when checked with tongue depressor. Icechips given and popsicle approx 1400 after gag reflex checked again with tongue depressor and gag reflex returned. pt stated at this time she did not want her evening metformin due to receiving her metformin late today due to procedure. Family at bedisde and frequent vitals still being monitored.
[2018-10-30 15:00] VITALS: BP 136/64
--- NOTE | 2018-10-30 18:36 | NUR ---
CALLED TO GET ORDERS FOR PTS STOOL SOFTENERS. ORDERS RECEIVED AT APPROX 1830.
--- NOTE | 2018-10-30 19:24 | NUR ---
all frequents stable and prnted and put in chart.
[2018-10-30 19:54] VITALS: BP 142/73
[2018-10-30] MEDS: PSYLLIUM HUSK (SUGAR FREE) 1 PKT PACKET PO SCH (20:00)
[2018-10-30] MEDS: ATORVASTATIN CALCIUM 40 MG TABLET. PO SCH (20:45)
[2018-10-30] MEDS: DOCUSATE SODIUM 100 MG CAPSULE. PO PRN (20:45)
[2018-10-30] MEDS: ALPRAZolam 0.25 MG TABLET PO PRN (23:17)
[2018-10-30] MEDS: TEMAZEPAM 15 MG CAPSULE PO PRN (23:17)
[2018-10-30 23:32] VITALS: BP 131/68
[2018-10-31] MEDS: ACETAMINOPHEN/CODEINE 300/30MG TABLET. PO PRN ×3 (00:16→19:45)
[2018-10-31] MEDS: guaiFENesin DM 200MG/20MG 10 ML SYRUP PO PRN ×2 (00:18→23:27)
[2018-10-31 03:26] VITALS: BP 119/59
[2018-10-31] MEDS: MEROPENEM 1 GM in IV NORMAL SALINE 100ML 100 ML IV SCH ×3 (05:59→23:27)
[2018-10-31] MEDS: PANTOPRAZOLE 40 MG TABLET.DR. PO SCH (05:59)
[2018-10-31 07:00] VITALS: BP 114/65
[2018-10-31] MEDS: IPRATRPIUM/ALBUTEROL 0.5/2.5MG 3 ML NEBU. NEB SCH ×6 (07:07→23:35)
--- NOTE | 2018-10-31 08:28 | PDOC ---
PROGRESS NOTES History of Present Illness History of Present Illness ASSESSMENT AND PLAN: Bilateral pneumonia and leukocytosis. obesity, morbid Patchy areas of consolidation in the lower lobes, as well as the right middle lobe and lingula. This is favored to be infectious versus inflammatory in etiology. Given distribution possible aspiration. 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 She was treated for pneumonia in September and now //// recurrent pneumonia Hepatic steatosis. Small hiatal hernia. admitted, IV antibiotics, MEREM breathing treatments, oxygen. SUPPORT iv steroids, home meds, DVT prophylaxis. Consult Dr. Forde. bronch culture pending KATINA pending 39 MIN PT EXAM, CHART REVIEW, > 50% OF TIME SPENT WITH EXAM, CHART REVIEW, PT CARE COORDINATION PROCEDURE: Bronchoscopy. INDICATIONS: Recurrent pneumonia. DESCRIPTION OF PROCEDURE: Informed consent was obtained from the patient. She agreed to proceed with the procedure. Propofol was used by Anesthesia for sedation. Bronch was introduced through the oral route as the nasal passages were tight. Vocal cords moves equally with respiration. The trachea was entered. No tracheal lesions seen. Maryann sharp. Right lung was examined. Minimal light creamy secretions seen in the right mainstem, which were removed. No significant secretions seen in the right upper, right middle or right lower lobe. Bronchoalveolar lavage performed from right lower lobe. No endobronchial lesions seen. Bronch was introduced into the left lung. Creamy secretions in the left main stem bronchus. No endobronchial lesion seen in all the subsegments of left upper lobe, lingula and left lower lobe. Bronchoalveolar lavage performed from the left lower lobe. The patient tolerated the procedure well. IMPRESSION: 1. Creamy secretion seen on the left main stem bronchus and also minimally in the right main stem bronchus. 2. Bronchoalveolar lavage performed from the right lower lobe and left lower lobe. 3. No endobronchial lesion seen. 4. Follow the culture results. Vitals Vitals Vital Signs Date Time Temp Pulse Resp B/P (MAP) Pulse Ox O2 Delivery O2 Flow Rate FiO2 10/31/18 07:08 94 Room Air 10/31/18 07:00 98.0 91 16 114/65 (81) 98.0 10/30/18 11:10 10 Physical Exam Physical Exam GENERAL: Alert, oriented female, not in distress. VITAL SIGNS: Stable. Afebrile. HEENT: NAD. NECK: Supple, no JVP, no lymphadenopathy. LUNGS: Clear. HEART: S1, S2 regular. ABDOMEN: Benign. EXTREMITIES: No edema, cyanosis. SKIN: Unremarkable. NEUROLOGIC: The patient is neurologically alert, awake and appropriate. No focal neurologic deficit. General: Alert, Oriented X3, Cooperative, mild distress Heart: Regular rate, Normal S1 Lungs: Other (decrease bs BASILAR CRACKLES BILATERAL) Abdomen: Normal bowel sounds, Soft Extremities: No clubbing, No cyanosis, No edema Skin: No significant lesion Labs LABS SPEC #: [id number] OLYA: 10/30/18 STATUS: COMP REQ #: [id number] RECD: 10/30/[address]: CADEN GUERRERO III, DO SOURCE: BRONCH [place] ENTR: 10/30/[address]: VAL ARANDA MD SPDESC: RT LOW LOB TIA,KALINA MACKENZIE,JOSE CASTRO MD, MD ORDERED: BRONCH COMMENTS: BAL, RLL AND LLL Procedure Result BRONCHIAL GRAM STAIN Final WBCS MANY RBCS FEW ORGANISMS NONE SEEN Laboratory Tests Test 10/30/18 12:15 10/30/18 17:32 10/31/18 08:03 Glucose (Fingerstick) 97 mg/dL (70-99) 119 mg/dL (70-99) 106 mg/dL (70-99) Assessment and Plan Assessmemt and Plan Problems Medical Problems: (1) Chest pain Status: Acute (2) Leukocytosis Status: Acute (3) Pneumonia Status: Acute (4) Sepsis Status: Acute Comment Review of Relevant I have reviewed the following items aide (where applicable) has been applied. Labs Laboratory Tests Test 10/29/18 11:38 10/29/18 16:53 10/29/18 20:31 10/30/18 07:30 Glucose (Fingerstick) 165 mg/dL (70-99) 137 mg/dL (70-99) 125 mg/dL (70-99) 115 mg/dL (70-99) Test 10/30/18 12:15 10/30/18 17:32 10/31/18 08:03 Glucose (Fingerstick) 97 mg/dL (70-99) 119 mg/dL (70-99) 106 mg/dL (70-99) Laboratory Tests Test 10/30/18 12:15 10/30/18 17:32 10/31/18 08:03 Glucose (Fingerstick) 97 mg/dL (70-99) 119 mg/dL (70-99) 106 mg/dL (70-99) Microbiology 10/30/18 - Final, Complete 10/28/18 Blood Culture - Preliminary, Resulted NO GROWTH AFTER 2 DAYS Medications Current Medications Sodium Chloride 1,000 ml @ 1,860 mls/hr Q33M IV Last administered on 10/28/18at 16:55; Start 10/28/18 at 15:50; Stop 10/28/18 at 16:50; Status DC Piperacillin Sod/ Tazobactam Sod 4.5 gm/Sodium Chloride 100 ml @ 200 mls/hr 1X ONCE IV Last administered on 10/28/18 16:22; Start 10/28/18 at 16:00; Stop 10/28/18 at 16:29; Status DC Vancomycin HCl (Vanco Per Pharmacy) 1 each 1X ONCE MC ; Start 10/28/18 at 16:00; Stop 10/29/18 at 08:28; Status DC Fentanyl Citrate (Fentanyl 2ml Vial) 50 mcg PRN Q15MIN PRN IV PAIN GREATER THAN 3/10 Last administered on 10/28/18 17:01; Start 10/28/18 at 16:00; Stop 10/29/18 at 15:59; Status DC Aspirin (Daren Aspirin) 325 mg 1X ONCE PO Last administered on 10/28/18 16:22; Start 10/28/18 at 16:30; Stop 10/28/18 at 16:31; Status DC Nitroglycerin (Nitrostat) 0.4 mg PRN Q5MIN PRN SL CP RATING > 1/10 Last administered on 10/28/18 16:22; Start 10/28/18 at 16:00; Stop 10/29/18 at 14:23; Status DC Acetaminophen (Tylenol) 1,000 mg 1X ONCE PO Last administered on 10/28/18 16:22; Start 10/28/18 at 16:00; Stop 10/28/18 at 16:01; Status DC Vancomycin HCl 2 gm/Sodium Chloride 500 ml @ 250 mls/hr 1X ONCE IV Last administered on 10/28/18 16:58; Start 10/28/18 at 17:00; Stop 10/28/18 at 19:03; Status DC Ondansetron HCl (Zofran) 4 mg PRN Q8HRS PRN IV NAUSEA/VOMITING; Start 10/28/18 at 19:00; Stop 10/29/18 at 18:59; Status DC Acetaminophen (Tylenol) 650 mg PRN Q4HRS PRN PO FEVER Last administered on 10/29/18 14:00; Start 10/28/18 at 19:00; Stop 10/29/18 at 18:59; Status DC Sodium Chloride 1,000 ml @ 1,000 mls/hr 1X ONCE IV Last administered on 10/28/18 19:10; Start 10/28/18 at 19:15; Stop 10/28/18 at 20:48; Status DC Linezolid/Dextrose 300 ml @ 300 mls/hr Q12HR IV Last administered on 10/28/18 21:43; Start 10/28/18 at 21:00; Stop 10/29/18 at 08:28; Status DC Benzonatate (Tessalon Perle) 200 mg PRN Q6HRS PRN PO COUGH 2ND CHOICE Last administered on 10/30/18 20:49; Start 10/28/18 at 23:00 Temazepam (Restoril) 15 mg PRN QHS PRN PO INSOMNIA Last administered on 10/30/18 23:17; Start 10/28/18 at 23:00 Alprazolam (Xanax) 0.25 mg PRN Q8HRS PRN PO ANXIETY / AGITATION Last administered on 10/30/18 23:17; Start 10/28/18 at 23:00 Aspirin (Ecotrin) 81 mg DAILYWBKFT PO Last administered on 10/30/18 14:13; Start 10/29/18 at 08:00 Atorvastatin Calcium (Lipitor) 40 mg QHS PO Last administered on 10/30/18 20:49; Start 10/29/18 at 21:00 Guaifenesin (Robitussin Dm) 10 ml PRN Q4HRS PRN PO COUGH 1ST CHOICE Last administered on 10/31/18 00:18; Start 10/28/18 at 23:00 Ibuprofen (Motrin) 400 mg PRN TID PRN PO INFLAMMATION; Start 10/28/18 at 23:00 Albuterol/ Ipratropium (Duoneb) 3 ml RTQID NEB Last administered on 10/31/18 07:07; Start 10/29/18 at 08:00 Metformin HCl (Glucophage) 500 mg BIDWMEALS PO Last administered on 10/30/18 14:13; Start 10/29/18 at 08:00 Nitroglycerin (Nitrostat) 0.4 mg PRN Q5MIN PRN SL CHEST PAIN; Start 10/28/18 at 23:00 Bupropion HCl (Wellbutrin Xl) 300 mg DAILY PO Last administered on 9/5/19at 14:13; Start 10/29/18 at 09:00 Duloxetine HCl (Cymbalta) 60 mg DAILY PO Last administered on 10/30/18at 14:13; Start 10/29/18 at 09:00 Non-Formulary Medication (Icosapent Ethyl (Vascepa)) 1 gm DAILY08 PO ; Start 10/29/18 at 08:00; Stop 10/30/18 at 09:09; Status DC Pantoprazole Sodium (Protonix) 40 mg DAILYAC PO Last administered on 10/31/18at 06:01; Start 10/29/18 at 07:30 Non-Formulary Medication (Melatonin ) 10 mg HS PRN PO INSOMNIA; Start 10/28/18 at 23:00; Status UNV Fish Oil (Fish Oil) 1,000 mg DAILY PO Last administered on 10/30/18at 14:13; Start 10/29/18 at 09:00 Temazepam (Restoril) 15 mg PRN QHS PRN PO INSOMNIA; Start 10/28/18 at 23:00; Status UNV Benzonatate (Tessalon Perle) 200 mg PRN Q6HRS PO ; Start 10/28/18 at 23:00; Status UNV Meropenem 1 gm/ Sodium Chloride 100 ml @ 200 mls/hr Q8HRS IV Last administered on 10/31/18at 06:01; Start 10/29/18 at 09:00 Guaifenesin (MUCINEX ER with DM) 2 tab BID PO Last administered on 10/30/18at 20:49; Start 10/29/18 at 21:00 Ondansetron HCl (Zofran) 4 mg PRN Q6HRS PRN IV NAUSEA/VOMITING; Start 10/30/18 at 07:00; Stop 10/31/18 at 06:59; Status DC Fentanyl Citrate (Fentanyl 2ml Vial) 25 mcg PRN Q5MIN PRN IV MILD PAIN 1-3; Start 10/30/18 at 07:00; Stop 10/31/18 at 06:59; Status DC Fentanyl Citrate (Fentanyl 2ml Vial) 50 mcg PRN Q5MIN PRN IV MODERATE TO SEVERE PAIN; Start 10/30/18 at 07:00; Stop 10/31/18 at 06:59; Status DC Morphine Sulfate (Morphine Sulfate) 1 mg PRN Q10MIN PRN IV SEVERE PAIN 7-10; Start 10/30/18 at 07:00; Stop 10/31/18 at 06:59; Status DC Ringer's Solution 1,000 ml @ 30 mls/hr Q24H IV Last administered on 10/30/18at 10:24; Start 10/30/18 at 07:00; Stop 10/30/18 at 18:59; Status DC Lidocaine HCl (Xylocaine-Mpf 1% 2ml Vial) 2 ml PRN 1X PRN ID PRIOR TO IV START; Start 10/30/18 at 07:00; Stop 10/31/18 at 06:59; Status DC Hydromorphone HCl (Dilaudid) 0.5 mg PRN Q10MIN PRN IV SEV PAIN, Second choice; Start 10/30/18 at 07:00; Stop 10/31/18 at 06:59; Status DC Prochlorperazine Edisylate (Compazine) 5 mg PACU PRN PRN IV NAUSEA, MRX1; Start 10/30/18 at 07:00; Stop 10/31/18 at 06:59; Status DC Acetaminophen/ Codeine Phosphate (Tylenol #3) 2 tab PRN Q6HRS PRN PO MODERATE PAIN Last administered on 10/31/18at 00:16; Start 10/29/18 at 18:00 Ondansetron HCl (Zofran) 4 mg PRN Q6HRS PRN IV NAUSEA/VOMITING Last administered on 10/30/18at 14:27; Start 10/29/18 at 20:15 Lidocaine HCl (Lidocaine 2% Viscous) 100 ml PRN 1X PRN MM MOUTH PAIN Last administered on 10/30/18at 10:33; Start 10/30/18 at 08:15; Stop 10/31/18 at 08:14; Status DC Lidocaine HCl (Lidocaine 1% 20ml Vial) 20 ml PRN 1X PRN INJ SEE COMMENTS Last administered on 10/30/18at 10:32; Start 10/30/18 at 08:15; Stop 10/31/18 at 08:14; Status DC Epinephrine HCl (Adrenalin) 1 mg PRN 1X PRN INJ SEE COMMENTS; Start 10/30/18 at 08:15; Stop 10/31/18 at 08:14; Status DC Lidocaine HCl 50 ml PRN 1X PRN MM SEE COMMENTS Last administered on 10/30/18at 10:32; Start 10/30/18 at 08:15; Stop 10/31/18 at 08:14; Status DC Phenol (Chloraseptic) 1 spray PRN Q2HR PRN PO SORE THROAT Last administered on 10/30/18at 16:46; Start 10/30/18 at 14:30 Psyllium Hydrophilic Mucilloid (Metamucil Fiber Packet) 1 pkt DAILY PO Last administered on 10/30/18at 20:00; Start 10/30/18 at 19:00 Polyethylene Glycol (miraLAX PACKET) 17 gm PRN DAILY PRN PO CONSTIPATION; Start 10/30/18 at 18:45 Docusate Sodium (Colace) 100 mg PRN BID PRN PO HARD STOOLS Last administered on 10/30/18at 20:49; Start 10/30/18 at 18:45 Active Scripts Active NITROGLYCERIN SubLingual (Nitroglycerin) 0.4 Mg Tab.subl 0.4 Mg SL PRN Q5MIN PRN 30 Days Aspirin Ec (Aspirin) 81 Mg Tablet.dr 81 Mg PO DAILYWBKFT Alprazolam 0.25 Mg Tablet 0.25 Mg PO PRN Q8HRS PRN Atorvastatin Calcium 40 Mg Tablet 40 Mg PO QHS Guaifenesin Dm Syrup (Guaifenesin/Dextromethorphan) 5 Ml Syrup 10 Ml PO PRN Q4HRS PRN 10 Days Duoneb 0.5-3(2.5) Mg/3 Ml (Albuterol/Ipratropium) 3 Ml Ampul.neb 3 Ml NEB RTQID 30 Days Reported Metformin Hcl 500 Mg Tablet 500 Mg PO BID PRN Vascepa (Icosapent Ethyl) 1 Gm Capsule 1 Gm PO DAILY08 Melatonin 3 Mg Tablet 10 Mg PO HS PRN Ibuprofen 400 Mg Tablet 400 Mg PO PRN TID PRN Prevacid (Lansoprazole) 30 Mg Capsule. 1 Cap PO DAILY Lovaza ([place]-3 Acid Ethyl Esters) 1 Gm Capsule 1 Gm PO DAILY08 Wellbutrin Xl (Bupropion Hcl) 300 Mg Tab.er.24h 1 Tab PO DAILY Cymbalta (Duloxetine Hcl) 60 Mg Capsule. 1 Cap PO DAILY Vitals/I & O Vital Sign - Last 24 Hours 9/510/30/18 10/30/18 10/30/18 10:16 10:17 10:35 11:00 Temp 98.9 98.9 Pulse 98 96 Resp 20 12 B/P (MAP) 145/76 (99) Pulse Ox 94 97 91 O2 Delivery Room Air Room Air Room Air O2 Flow Rate 2.0 10/30/18 10/30/18 10/30/18 10/30/18 11:10 11:25 11:41 14:27 Temp 98.0 98.0 Pulse 100 101 100 Resp 18 20 20 B/P (MAP) 128/57 146/66 145/82 Pulse Ox 95 96 97 O2 Delivery Simple Mask Room Air Room Air Room Air O2 Flow Rate 10 10/30/18 10/30/18 10/30/18 10/30/18 15:00 16:25 19:04 19:54 Temp 98.0 98.0 98.0 98.0 Pulse 105 106 Resp 12 14 B/P (MAP) 136/64 (88) 142/73 (96) Pulse Ox 93 92 96 O2 Delivery Room Air Room Air Room Air Room Air 10/30/18 10/30/18 10/31/18 10/31/18 20:00 23:32 00:16 01:59 Temp 98.3 98.3 Resp 16 18 18 B/P (MAP) 131/68 (89) Pulse Ox 95 96 96 O2 Delivery Room Air Room Air Room Air Room Air 10/31/18 10/31/18 10/31/18 03:26 07:00 07:08 Temp 97.9 98.0 97.9 98.0 Pulse 102 91 Resp 16 16 B/P (MAP) 119/59 (79) 114/65 (81) Pulse Ox 96 91 94 O2 Delivery Room Air Room Air Room Air Intake and Output 0 10/30/18 10/30/18 10/31/18 14:59 22:59 06:59 Intake Total 200 ml 300 ml 360 ml Output Total 700 ml Balance 200 ml 300 ml -340 ml CRISTIAN BELLO MD Oct 31, 2018 08:28
[2018-10-31] MEDS: guaiFENesin DM 600/30MG 1 TAB TAB.ER.12H PO SCH ×2 (08:34→20:19)
[2018-10-31] MEDS: OMEGA-3 FATTY ACIDS/FISH OIL 1,000 MG CAPSULE. PO SCH (08:35)
[2018-10-31] MEDS: DULoxetine HCL 30 MG CAPSULE.DR PO SCH (08:35)
[2018-10-31] MEDS: metFORMIN 500 MG TABLET PO SCH ×2 (08:35→17:35)
[2018-10-31] MEDS: ASPIRIN ENTERIC COATED 81 MG TABLET.DR. PO SCH (08:35)
[2018-10-31] MEDS: PSYLLIUM HUSK (SUGAR FREE) 1 PKT PACKET PO SCH (08:36)
[2018-10-31] MEDS: buPROPion XL 150 MG TAB.ER.24H. PO SCH (08:36)
[2018-10-31] MEDS: POLYETHYLENE GLYCOL 3350 17 GM PACKET. PO PRN (08:43)
[2018-10-31] MEDS: DOCUSATE SODIUM 100 MG CAPSULE. PO PRN ×2 (08:43→23:27)
--- NOTE | 2018-10-31 10:02 | PDOC ---
Infectious Disease Note Subjective Subjective pt is feeling not well says coughing a lot and with that chest pain ROS ROS no n/v/d/fever/sob Vital Sign Vital Signs Vital Signs Date Time Temp Pulse Resp B/P (MAP) Pulse Ox O2 Delivery O2 Flow Rate FiO2 10/31/18 08:30 Room Air 10/31/18 07:08 94 10/31/18 07:00 98.0 91 16 114/65 (81) 98.0 10/30/18 11:10 10 Physical Exam PHYSICAL EXAM GENERAL: Alert, oriented female, not in distress. VITAL SIGNS: Stable. Afebrile. HEENT: NAD. NECK: Supple, no JVP, no lymphadenopathy. LUNGS: Clear. HEART: S1, S2 regular. ABDOMEN: Benign. EXTREMITIES: No edema, cyanosis. SKIN: Unremarkable. NEUROLOGIC: The patient is neurologically alert, awake and appropriate. No focal neurologic deficit. Labs Lab Laboratory Tests Test 10/30/18 12:15 10/30/18 17:32 10/31/18 08:03 Glucose (Fingerstick) 97 mg/dL (70-99) 119 mg/dL (70-99) 106 mg/dL (70-99) Micro Microbiology 10/28/18 Blood Culture - Preliminary, Resulted NO GROWTH AFTER 1 DAY Objective Assessment 1. Symptoms of dizziness, fever, nausea of unclear etiology. She has not had any fever yet here. 2. Leukocytosis. 3. Bilateral patchy infiltrate 4. History of diagnosis of common variable immunodeficiency. 5. Diabetes. 6. Hypertension. 7. Recent cardiac cath with no significant coronary artery disease. Plan Plan of Care cont antibiotics bronch culture pending KATINA pending VAL ARANDA MD Oct 31, 2018 10:02
[2018-10-31 11:00] VITALS: BP 128/61
[2018-10-31] MEDS: BUDESONIDE 0.5 MG/2 ML NEBU. NEB SCH ×2 (11:00→20:00)
--- NOTE | 2018-10-31 11:07 | PDOC ---
PULMONARY PROGRESS NOTES Subjective no change still dry cough, not feeling well Vitals Vital Signs Date Time Temp Pulse Resp B/P (MAP) Pulse Ox O2 Delivery O2 Flow Rate FiO2 10/31/18 08:30 Room Air 10/31/18 07:08 94 10/31/18 07:00 98.0 91 16 114/65 (81) 98.0 10/30/18 11:10 10 General: Alert, No acute distress Lungs: Other (decrease bs) Cardiovascular: S1, S2 Abdomen: Soft, Non-tender Neuro Exam: Alert Extremities: No Edema Skin: Warm Labs Laboratory Tests Test 10/29/18 11:38 10/29/18 16:53 10/29/18 20:31 10/30/18 07:30 Glucose (Fingerstick) 165 mg/dL (70-99) 137 mg/dL (70-99) 125 mg/dL (70-99) 115 mg/dL (70-99) Test 10/30/18 12:15 10/30/18 17:32 10/31/18 08:03 Glucose (Fingerstick) 97 mg/dL (70-99) 119 mg/dL (70-99) 106 mg/dL (70-99) Laboratory Tests Test 10/30/18 12:15 10/30/18 17:32 10/31/18 08:03 Glucose (Fingerstick) 97 mg/dL (70-99) 119 mg/dL (70-99) 106 mg/dL (70-99) Medications Active Scripts Medications Dose Route/Sig Max Daily Dose Days Date Category NITROGLYCERIN SubLingual (Nitroglycerin) 0.4 Mg Tab.subl 0.4 Mg SL PRN Q5MIN PRN 30 10/21/18 Rx Aspirin Ec (Aspirin) 81 Mg Tablet.dr 81 Mg PO DAILYWBKFT 10/21/18 Rx Alprazolam 0.25 Mg Tablet 0.25 Mg PO PRN Q8HRS PRN 10/21/18 Rx Atorvastatin Calcium 40 Mg Tablet 40 Mg PO QHS 10/21/18 Rx Guaifenesin Dm Syrup (Guaifenesin/Dextromethorphan) 5 Ml Syrup 10 Ml PO PRN Q4HRS PRN 10 10/04/18 Rx Metformin Hcl 500 Mg Tablet 500 Mg PO BID PRN 09/29/18 Reported Vascepa (Icosapent Ethyl) 1 Gm Capsule 1 Gm PO DAILY08 09/29/18 Reported Duoneb 0.5-3(2.5) Mg/3 Ml (Albuterol/Ipratropium) 3 Ml Ampul.neb 3 Ml NEB RTQID 30 05/30/17 Rx Melatonin 3 Mg Tablet 10 Mg PO HS PRN 05/28/17 Reported Ibuprofen 400 Mg Tablet 400 Mg PO PRN TID PRN 05/28/17 Reported Prevacid (Lansoprazole) 30 Mg Capsule.dr 1 Cap PO DAILY 05/28/17 Reported Lovaza ([place]-3 Acid Ethyl Esters) 1 Gm Capsule 1 Gm PO DAILY08 05/28/17 Reported Wellbutrin Xl (Bupropion Hcl) 300 Mg Tab.er.24h 1 Tab PO DAILY 05/28/17 Reported Cymbalta (Duloxetine Hcl) 60 Mg Capsule.dr 1 Cap PO DAILY 05/28/17 Reported Impression . 1. 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 She was treated for pneumonia in September and now comes in with recurrent pneumonia. Her CT chest findings are showing more consolidation in the right lower lobe compared to previous CAT scan and also infiltrates in the left lower lobe. She is immunocompromised s/p bronchoscopy 2. Forty years of tobacco use, suspect underlying chronic obstructive pulmonary disease. Plan . 1. Discussed with the patient . Cough not improving. will add low dose steroids follow bronchoscopy cultures 2. Continue broad spectrum antibiotics per Dr. Agarwal. 3. We will obtain records from her PCP regarding the immunoglobulin levels and the diagnosis. 4. Continue bronchodilators. LAVONNE CAMPO MD Oct 31, 2018 11:07
[2018-10-31] MEDS: methylPREDNISolone SOD SUCC PF 40 MG/ML VIAL. IV SCH ×2 (12:08→23:27)
--- NOTE | 2018-10-31 14:39 | NUR ---
SS following up with discharge planning. No discharge needs noted at this time. SS will continue to follow for discharge planning.
[2018-10-31 15:00] VITALS: BP 155/77
[2018-10-31 19:00] VITALS: BP 138/76
[2018-10-31 19:09] LABS: ANA INTERP Negative (.)
[2018-10-31] MEDS: ATORVASTATIN CALCIUM 40 MG TABLET. PO SCH (20:19)
[2018-10-31 23:00] VITALS: BP 119/68
[2018-10-31] MEDS: TEMAZEPAM 15 MG CAPSULE PO PRN (23:27)
[2018-11-01] MEDS: IPRATRPIUM/ALBUTEROL 0.5/2.5MG 3 ML NEBU. NEB SCH ×5 (02:55→20:49)
[2018-11-01 03:00] VITALS: BP 140/74
[2018-11-01] MEDS: BENZONATATE 100 MG CAPSULE. PO PRN ×2 (03:00→09:34)
[2018-11-01] MEDS: ACETAMINOPHEN/CODEINE 300/30MG TABLET. PO PRN ×4 (03:00→22:02)
--- NOTE | 2018-11-01 03:21 | NUR ---
PT STATES SHE FEELS REALLY BAD, ACHES ALL OVER CONTINUES TO COUGH. ADMIN MEDS, ALSO HOW DECAF TEA. FAN. TYLENOL 3 AND TESSOLON ALISHA. WILL CONTINUE TO MONITOR. LCRN
[2018-11-01] MEDS: ONDANSETRON PF 4 MG/2 ML VIAL. IV PRN ×2 (04:23→09:40)
[2018-11-01 04:33] LABS: ALBUMIN/GLOBULIN RATIO 0.8 (1.0-1.7); CALCIUM 9.1 mg/dL (8.5-10.1); CREATININE 0.9 mg/dL (0.6-1.0); GFR 65.2; POTASSIUM 4.2 mmol/L (3.5-5.1); TOTAL BILIRUBIN 0.2 mg/dL (0.2-1.0); TOTAL PROTEIN 6.9 g/dL (6.4-8.2)
[2018-11-01] MEDS: MEROPENEM 1 GM in IV NORMAL SALINE 100ML 100 ML IV SCH ×3 (06:38→22:00)
[2018-11-01] MEDS: methylPREDNISolone SOD SUCC PF 40 MG/ML VIAL. IV SCH ×3 (06:39→22:03)
[2018-11-01 07:00] VITALS: BP 135/68
[2018-11-01 07:12] LABS: BASO % 0 % (0-3); EOS % 0 % (0-3); HEMATOCRIT 33.5 % (36.0-47.0); LYMPH % 10 % (24-48); MEAN CORPUSCULAR HEMOGLOBIN 28 pg (25-35); MEAN CORPUSCULAR HGB CONC 33 g/dL (31-37); MEAN CORPUSCULAR VOLUME 87 fL (79-100); MONO # 0.2 x10^3/uL (0.0-1.1); MONO % 2 % (0-9); NEUT # 9.1 x10^3/uL (1.8-7.7); NEUT % 88 % (31-73); PLATELET COUNT 340 x10^3/uL (140-400); RED BLOOD COUNT 3.86 x10^6/uL (3.50-5.40); RED CELL DISTRIBUTION WIDTH 18.4 % (11.5-14.5); WHITE BLOOD COUNT 10.4 x10^3/uL (4.0-11.0)
--- NOTE | 2018-11-01 07:27 | PDOC ---
PULMONARY PROGRESS NOTES Subjective has cough, some sob, has gerd symptoms Vitals Vital Signs Date Time Temp Pulse Resp B/P (MAP) Pulse Ox O2 Delivery O2 Flow Rate FiO2 11/01/18 03:00 98.0 109 18 140/74 (96) 95 Room Air 98.0 10/31/18 20:00 2.0 ROS: No Nausea General: Alert, No acute distress Lungs: Other (decrease bs BASILAR CRACKLES BILATERAL) Cardiovascular: S1, S2 Abdomen: Soft, Non-tender Neuro Exam: Alert Extremities: No Edema Skin: Warm Labs Laboratory Tests Test 10/30/18 07:30 10/30/18 12:15 10/30/18 17:32 10/31/18 08:03 Glucose (Fingerstick) 115 mg/dL (70-99) 97 mg/dL (70-99) 119 mg/dL (70-99) 106 mg/dL (70-99) Test 10/31/18 12:11 10/31/18 17:11 10/31/18 20:59 11/01/18 03:30 Glucose (Fingerstick) 90 mg/dL (70-99) 174 mg/dL (70-99) 144 mg/dL (70-99) White Blood Count 10.4 x10^3/uL (4.0-11.0) Red Blood Count 3.86 x10^6/uL (3.50-5.40) Hemoglobin 11.0 g/dL (12.0-15.5) Hematocrit 33.5 % (36.0-47.0) Mean Corpuscular Volume 87 fL (79-100) Mean Corpuscular Hemoglobin 28 pg (25-35) Mean Corpuscular Hemoglobin Concent 33 g/dL (31-37) Red Cell Distribution Width 18.4 % (11.5-14.5) Platelet Count 340 x10^3/uL (140-400) Neutrophils (%) (Auto) 88 % (31-73) Lymphocytes (%) (Auto) 10 % (24-48) Monocytes (%) (Auto) 2 % (0-9) Eosinophils (%) (Auto) 0 % (0-3) Basophils (%) (Auto) 0 % (0-3) Neutrophils # (Auto) 9.1 x10^3/uL (1.8-7.7) Lymphocytes # (Auto) 1.0 x10^3/uL (1.0-4.8) Monocytes # (Auto) 0.2 x10^3/uL (0.0-1.1) Eosinophils # (Auto) 0.0 x10^3/uL (0.0-0.7) Basophils # (Auto) 0.0 x10^3/uL (0.0-0.2) Sodium Level 144 mmol/L (136-145) Potassium Level 4.2 mmol/L (3.5-5.1) Chloride Level 104 mmol/L (98-107) Carbon Dioxide Level 27 mmol/L (21-32) Anion Gap 13 (6-14) Blood Urea Nitrogen 6 mg/dL (7-20) Creatinine 0.9 mg/dL (0.6-1.0) Estimated GFR (Cockcroft-Gault) 65.2 BUN/Creatinine Ratio 7 (6-20) Glucose Level 211 mg/dL (70-99) Calcium Level 9.1 mg/dL (8.5-10.1) Magnesium Level 1.6 mg/dL (1.8-2.4) Total Bilirubin 0.2 mg/dL (0.2-1.0) Aspartate Amino Transf (AST/SGOT) 19 U/L (15-37) Alanine Aminotransferase (ALT/SGPT) 25 U/L (14-59) Alkaline Phosphatase 140 U/L (46-116) Total Protein 6.9 g/dL (6.4-8.2) Albumin 3.0 g/dL (3.4-5.0) Albumin/Globulin Ratio 0.8 (1.0-1.7) Laboratory Tests Test 10/31/18 08:03 10/31/18 12:11 10/31/18 17:11 10/31/18 20:59 Glucose (Fingerstick) 106 mg/dL (70-99) 90 mg/dL (70-99) 174 mg/dL (70-99) 144 mg/dL (70-99) Test 11/01/18 03:30 White Blood Count 10.4 x10^3/uL (4.0-11.0) Red Blood Count 3.86 x10^6/uL (3.50-5.40) Hemoglobin 11.0 g/dL (12.0-15.5) Hematocrit 33.5 % (36.0-47.0) Mean Corpuscular Volume 87 fL (79-100) Mean Corpuscular Hemoglobin 28 pg (25-35) Mean Corpuscular Hemoglobin Concent 33 g/dL (31-37) Red Cell Distribution Width 18.4 % (11.5-14.5) Platelet Count 340 x10^3/uL (140-400) Neutrophils (%) (Auto) 88 % (31-73) Lymphocytes (%) (Auto) 10 % (24-48) Monocytes (%) (Auto) 2 % (0-9) Eosinophils (%) (Auto) 0 % (0-3) Basophils (%) (Auto) 0 % (0-3) Neutrophils # (Auto) 9.1 x10^3/uL (1.8-7.7) Lymphocytes # (Auto) 1.0 x10^3/uL (1.0-4.8) Monocytes # (Auto) 0.2 x10^3/uL (0.0-1.1) Eosinophils # (Auto) 0.0 x10^3/uL (0.0-0.7) Basophils # (Auto) 0.0 x10^3/uL (0.0-0.2) Sodium Level 144 mmol/L (136-145) Potassium Level 4.2 mmol/L (3.5-5.1) Chloride Level 104 mmol/L (98-107) Carbon Dioxide Level 27 mmol/L (21-32) Anion Gap 13 (6-14) Blood Urea Nitrogen 6 mg/dL (7-20) Creatinine 0.9 mg/dL (0.6-1.0) Estimated GFR (Cockcroft-Gault) 65.2 BUN/Creatinine Ratio 7 (6-20) Glucose Level 211 mg/dL (70-99) Calcium Level 9.1 mg/dL (8.5-10.1) Magnesium Level 1.6 mg/dL (1.8-2.4) Total Bilirubin 0.2 mg/dL (0.2-1.0) Aspartate Amino Transf (AST/SGOT) 19 U/L (15-37) Alanine Aminotransferase (ALT/SGPT) 25 U/L (14-59) Alkaline Phosphatase 140 U/L (46-116) Total Protein 6.9 g/dL (6.4-8.2) Albumin 3.0 g/dL (3.4-5.0) Albumin/Globulin Ratio 0.8 (1.0-1.7) Medications Active Scripts Medications Dose Route/Sig Max Daily Dose Days Date Category NITROGLYCERIN SubLingual (Nitroglycerin) 0.4 Mg Tab.subl 0.4 Mg SL PRN Q5MIN PRN 30 10/21/18 Rx Aspirin Ec (Aspirin) 81 Mg Tablet.dr 81 Mg PO DAILYWBKFT 10/21/18 Rx Alprazolam 0.25 Mg Tablet 0.25 Mg PO PRN Q8HRS PRN 10/21/18 Rx Atorvastatin Calcium 40 Mg Tablet 40 Mg PO QHS 10/21/18 Rx Guaifenesin Dm Syrup (Guaifenesin/Dextromethorphan) 5 Ml Syrup 10 Ml PO PRN Q4HRS PRN 10 10/04/18 Rx Metformin Hcl 500 Mg Tablet 500 Mg PO BID PRN 09/29/18 Reported Vascepa (Icosapent Ethyl) 1 Gm Capsule 1 Gm PO DAILY08 09/29/18 Reported Duoneb 0.5-3(2.5) Mg/3 Ml (Albuterol/Ipratropium) 3 Ml Ampul.neb 3 Ml NEB RTQID 30 05/30/17 Rx Melatonin 3 Mg Tablet 10 Mg PO HS PRN 05/28/17 Reported Ibuprofen 400 Mg Tablet 400 Mg PO PRN TID PRN 05/28/17 Reported Prevacid (Lansoprazole) 30 Mg Capsule. 1 Cap PO DAILY 05/28/17 Reported Lovaza ([place]-3 Acid Ethyl Esters) 1 Gm Capsule 1 Gm PO DAILY08 05/28/17 Reported Wellbutrin Xl (Bupropion Hcl) 300 Mg Tab.er.24h 1 Tab PO DAILY 05/28/17 Reported Cymbalta (Duloxetine Hcl) 60 Mg Capsule. 1 Cap PO DAILY 05/28/17 Reported Impression . 1. 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 She was treated for pneumonia in September and now comes in with recurrent pneumonia. Her CT chest findings are showing more consolidation in the right lower lobe compared to previous CAT scan and also infiltrates in the left lower lobe. She is immunocompromised s/p bronchoscopy 2. Forty years of tobacco use, suspect underlying chronic obstructive pulmonary disease. Plan . 1. cont steroids, has gerd, which could be the etiology of her cough, increase protonix to bid follow bronchoscopy cultures, so far neg 2. Continue broad spectrum antibiotics per Dr. Agarwal. 3. We will obtain records from her PCP regarding the immunoglobulin levels and the diagnosis. 4. Continue bronchodilators. discussed w pt NICHOLE DONOHUE MD Nov 01, 2018 07:27
--- NOTE | 2018-11-01 07:37 | PDOC ---
PROGRESS NOTES History of Present Illness History of Present Illness ASSESSMENT AND PLAN: Bilateral pneumonia and leukocytosis. obesity, morbid Patchy areas of consolidation in the lower lobes, as well as the right middle lobe and lingula. This is favored to be infectious versus inflammatory in etiology. Given distribution possible aspiration. 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 She was treated for pneumonia in September and now //// recurrent pneumonia Hepatic steatosis. Small hiatal hernia. SEPSIS BRONCH RES 1 Preliminary Comment No growth in 36 - 48 hours. admitted, IV antibiotics, MEREM breathing treatments, oxygen. SUPPORT iv steroids, home meds, DVT prophylaxis. Consult Dr. Forde. bronch culture pending KATINA pending 39 MIN PT EXAM, CHART REVIEW, > 50% OF TIME SPENT WITH EXAM, CHART REVIEW, PT CARE COORDINATION PROCEDURE: Bronchoscopy. INDICATIONS: Recurrent pneumonia. DESCRIPTION OF PROCEDURE: Informed consent was obtained from the patient. She agreed to proceed with the procedure. Propofol was used by Anesthesia for sedation. Bronch was introduced through the oral route as the nasal passages were tight. Vocal cords moves equally with respiration. The trachea was entered. No tracheal lesions seen. Maryann sharp. Right lung was examined. Minimal light creamy secretions seen in the right mainstem, which were removed. No significant secretions seen in the right upper, right middle or right lower lobe. Bronchoalveolar lavage performed from right lower lobe. No endobronchial lesions seen. Bronch was introduced into the left lung. Creamy secretions in the left main stem bronchus. No endobronchial lesion seen in all the subsegments of left upper lobe, lingula and left lower lobe. Bronchoalveolar lavage performed from the left lower lobe. The patient tolerated the procedure well. IMPRESSION: 1. Creamy secretion seen on the left main stem bronchus and also minimally in the right main stem bronchus. 2. Bronchoalveolar lavage performed from the right lower lobe and left lower lobe. 3. No endobronchial lesion seen. 4. Follow the culture results. Vitals Vitals Vital Signs Date Time Temp Pulse Resp B/P (MAP) Pulse Ox O2 Delivery O2 Flow Rate FiO2 11/01/18 03:00 98.0 109 18 140/74 (96) 95 Room Air 98.0 10/31/18 20:00 2.0 Physical Exam Physical Exam GENERAL: Alert, oriented female, not in distress. VITAL SIGNS: Stable. Afebrile. HEENT: NAD. NECK: Supple, no JVP, no lymphadenopathy. LUNGS: Clear. HEART: S1, S2 regular. ABDOMEN: Benign. EXTREMITIES: No edema, cyanosis. SKIN: Unremarkable. NEUROLOGIC: The patient is neurologically alert, awake and appropriate. No focal neurologic deficit. General: Alert, Oriented X3, Cooperative, mild distress Heart: Regular rate, Normal S1 Lungs: Other (decrease bs BASILAR CRACKLES BILATERAL) Abdomen: Normal bowel sounds, Soft Extremities: No clubbing, No cyanosis, No edema Skin: No significant lesion Labs LABS PATIENT: YAKOV DUKE ACCT: [id number] LOC: [address] [place] [address] U: [id number] AGE/SX: 53/F ROOM: 209 RE10/28/[address]: CADEN GUERRERO III, DO : 1965 BED: 1 DIS: STATUS: ADM IN TLOC: SPEC #: [id number] OLYA: 10/30/180 STATUS: RES REQ #: [id number] RECD: 10/30/18-[address]: CADEN GUERRERO III, DO SOURCE: BRONCH WA ENTR: 10/30/18-[address]: VAL ARANDA MD SPDC: RT KALINA BYRNES AMAN U MD PASNOORI, VENKAT R MD ORDERED: BRONCH CULTURE COMMENTS: BAL, RLL AND LLL Procedure Result BRONCH CULTURE Preliminary Preliminary report BRONCH RES 1 Preliminary Comment No growth in 36 - 48 hours. Performed at: [facility], [place], [place] [id number] Hris Specialist: ARAM Issa MD, Phone: [phone] -------- ---- Laboratory Tests Test 10/31/18 08:03 10/31/18 12:11 10/31/18 17:11 10/31/18 20:59 Glucose (Fingerstick) 106 mg/dL (70-99) 90 mg/dL (70-99) 174 mg/dL (70-99) 144 mg/dL (70-99) Test 11/01/18 03:30 White Blood Count 10.4 x10^3/uL (4.0-11.0) Red Blood Count 3.86 x10^6/uL (3.50-5.40) Hemoglobin 11.0 g/dL (12.0-15.5) Hematocrit 33.5 % (36.0-47.0) Mean Corpuscular Volume 87 fL (79-100) Mean Corpuscular Hemoglobin 28 pg (25-35) Mean Corpuscular Hemoglobin Concent 33 g/dL (31-37) Red Cell Distribution Width 18.4 % (11.5-14.5) Platelet Count 340 x10^3/uL (140-400) Neutrophils (%) (Auto) 88 % (31-73) Lymphocytes (%) (Auto) 10 % (24-48) Monocytes (%) (Auto) 2 % (0-9) Eosinophils (%) (Auto) 0 % (0-3) Basophils (%) (Auto) 0 % (0-3) Neutrophils # (Auto) 9.1 x10^3/uL (1.8-7.7) Lymphocytes # (Auto) 1.0 x10^3/uL (1.0-4.8) Monocytes # (Auto) 0.2 x10^3/uL (0.0-1.1) Eosinophils # (Auto) 0.0 x10^3/uL (0.0-0.7) Basophils # (Auto) 0.0 x10^3/uL (0.0-0.2) Sodium Level 144 mmol/L (136-145) Potassium Level 4.2 mmol/L (3.5-5.1) Chloride Level 104 mmol/L (98-107) Carbon Dioxide Level 27 mmol/L (21-32) Anion Gap 13 (6-14) Blood Urea Nitrogen 6 mg/dL (7-20) Creatinine 0.9 mg/dL (0.6-1.0) Estimated GFR (Cockcroft-Gault) 65.2 BUN/Creatinine Ratio 7 (6-20) Glucose Level 211 mg/dL (70-99) Calcium Level 9.1 mg/dL (8.5-10.1) Magnesium Level 1.6 mg/dL (1.8-2.4) Total Bilirubin 0.2 mg/dL (0.2-1.0) Aspartate Amino Transf (AST/SGOT) 19 U/L (15-37) Alanine Aminotransferase (ALT/SGPT) 25 U/L (14-59) Alkaline Phosphatase 140 U/L (46-116) Total Protein 6.9 g/dL (6.4-8.2) Albumin 3.0 g/dL (3.4-5.0) Albumin/Globulin Ratio 0.8 (1.0-1.7) Assessment and Plan Assessmemt and Plan Problems Medical Problems: (1) Chest pain Status: Acute (2) Leukocytosis Status: Acute (3) Pneumonia Status: Acute (4) Sepsis Status: Acute Comment Review of Relevant I have reviewed the following items aide (where applicable) has been applied. Labs Laboratory Tests Test 10/30/18 12:15 10/30/18 17:32 10/31/18 08:03 10/31/18 12:11 Glucose (Fingerstick) 97 mg/dL (70-99) 119 mg/dL (70-99) 106 mg/dL (70-99) 90 mg/dL (70-99) Test 10/31/18 17:11 10/31/18 20:59 11/01/18 03:30 Glucose (Fingerstick) 174 mg/dL (70-99) 144 mg/dL (70-99) White Blood Count 10.4 x10^3/uL (4.0-11.0) Red Blood Count 3.86 x10^6/uL (3.50-5.40) Hemoglobin 11.0 g/dL (12.0-15.5) Hematocrit 33.5 % (36.0-47.0) Mean Corpuscular Volume 87 fL (79-100) Mean Corpuscular Hemoglobin 28 pg (25-35) Mean Corpuscular Hemoglobin Concent 33 g/dL (31-37) Red Cell Distribution Width 18.4 % (11.5-14.5) Platelet Count 340 x10^3/uL (140-400) Neutrophils (%) (Auto) 88 % (31-73) Lymphocytes (%) (Auto) 10 % (24-48) Monocytes (%) (Auto) 2 % (0-9) Eosinophils (%) (Auto) 0 % (0-3) Basophils (%) (Auto) 0 % (0-3) Neutrophils # (Auto) 9.1 x10^3/uL (1.8-7.7) Lymphocytes # (Auto) 1.0 x10^3/uL (1.0-4.8) Monocytes # (Auto) 0.2 x10^3/uL (0.0-1.1) Eosinophils # (Auto) 0.0 x10^3/uL (0.0-0.7) Basophils # (Auto) 0.0 x10^3/uL (0.0-0.2) Sodium Level 144 mmol/L (136-145) Potassium Level 4.2 mmol/L (3.5-5.1) Chloride Level 104 mmol/L (98-107) Carbon Dioxide Level 27 mmol/L (21-32) Anion Gap 13 (6-14) Blood Urea Nitrogen 6 mg/dL (7-20) Creatinine 0.9 mg/dL (0.6-1.0) Estimated GFR (Cockcroft-Gault) 65.2 BUN/Creatinine Ratio 7 (6-20) Glucose Level 211 mg/dL (70-99) Calcium Level 9.1 mg/dL (8.5-10.1) Magnesium Level 1.6 mg/dL (1.8-2.4) Total Bilirubin 0.2 mg/dL (0.2-1.0) Aspartate Amino Transf (AST/SGOT) 19 U/L (15-37) Alanine Aminotransferase (ALT/SGPT) 25 U/L (14-59) Alkaline Phosphatase 140 U/L (46-116) Total Protein 6.9 g/dL (6.4-8.2) Albumin 3.0 g/dL (3.4-5.0) Albumin/Globulin Ratio 0.8 (1.0-1.7) Laboratory Tests Test 10/31/18 08:03 10/31/18 12:11 10/31/18 17:11 10/31/18 20:59 Glucose (Fingerstick) 106 mg/dL (70-99) 90 mg/dL (70-99) 174 mg/dL (70-99) 144 mg/dL (70-99) Test 11/01/18 03:30 White Blood Count 10.4 x10^3/uL (4.0-11.0) Red Blood Count 3.86 x10^6/uL (3.50-5.40) Hemoglobin 11.0 g/dL (12.0-15.5) Hematocrit 33.5 % (36.0-47.0) Mean Corpuscular Volume 87 fL (79-100) Mean Corpuscular Hemoglobin 28 pg (25-35) Mean Corpuscular Hemoglobin Concent 33 g/dL (31-37) Red Cell Distribution Width 18.4 % (11.5-14.5) Platelet Count 340 x10^3/uL (140-400) Neutrophils (%) (Auto) 88 % (31-73) Lymphocytes (%) (Auto) 10 % (24-48) Monocytes (%) (Auto) 2 % (0-9) Eosinophils (%) (Auto) 0 % (0-3) Basophils (%) (Auto) 0 % (0-3) Neutrophils # (Auto) 9.1 x10^3/uL (1.8-7.7) Lymphocytes # (Auto) 1.0 x10^3/uL (1.0-4.8) Monocytes # (Auto) 0.2 x10^3/uL (0.0-1.1) Eosinophils # (Auto) 0.0 x10^3/uL (0.0-0.7) Basophils # (Auto) 0.0 x10^3/uL (0.0-0.2) Sodium Level 144 mmol/L (136-145) Potassium Level 4.2 mmol/L (3.5-5.1) Chloride Level 104 mmol/L (98-107) Carbon Dioxide Level 27 mmol/L (21-32) Anion Gap 13 (6-14) Blood Urea Nitrogen 6 mg/dL (7-20) Creatinine 0.9 mg/dL (0.6-1.0) Estimated GFR (Cockcroft-Gault) 65.2 BUN/Creatinine Ratio 7 (6-20) Glucose Level 211 mg/dL (70-99) Calcium Level 9.1 mg/dL (8.5-10.1) Magnesium Level 1.6 mg/dL (1.8-2.4) Total Bilirubin 0.2 mg/dL (0.2-1.0) Aspartate Amino Transf (AST/SGOT) 19 U/L (15-37) Alanine Aminotransferase (ALT/SGPT) 25 U/L (14-59) Alkaline Phosphatase 140 U/L (46-116) Total Protein 6.9 g/dL (6.4-8.2) Albumin 3.0 g/dL (3.4-5.0) Albumin/Globulin Ratio 0.8 (1.0-1.7) Microbiology 10/30/18 - Final, Complete 10/28/18 Blood Culture - Preliminary, Resulted NO GROWTH AFTER 3 DAYS Medications Current Medications Sodium Chloride 1,000 ml @ 1,860 mls/hr Q33M IV Last administered on 10/28/18at 16:55; Start 10/28/18 at 15:50; Stop 10/28/18 at 16:50; Status DC Piperacillin Sod/ Tazobactam Sod 4.5 gm/Sodium Chloride 100 ml @ 200 mls/hr 1X ONCE IV Last administered on 10/28/18at 16:22; Start 10/28/18 at 16:00; Stop 10/28/18 at 16:29; Status DC Vancomycin HCl (Vanco Per Pharmacy) 1 each 1X ONCE MC ; Start 10/28/18 at 16:00; Stop 10/29/18 at 08:28; Status DC Fentanyl Citrate (Fentanyl 2ml Vial) 50 mcg PRN Q15MIN PRN IV PAIN GREATER THAN 3/10 Last administered on 10/28/18at 17:01; Start 10/28/18 at 16:00; Stop 10/29/18 at 15:59; Status DC Aspirin (Daren Aspirin) 325 mg 1X ONCE PO Last administered on 10/28/18 16:22; Start 10/28/18 at 16:30; Stop 10/28/18 at 16:31; Status DC Nitroglycerin (Nitrostat) 0.4 mg PRN Q5MIN PRN SL CP RATING > 1/10 Last administered on 10/28/18 16:22; Start 10/28/18 at 16:00; Stop 10/29/18 at 14:23; Status DC Acetaminophen (Tylenol) 1,000 mg 1X ONCE PO Last administered on 10/28/18 16:22; Start 10/28/18 at 16:00; Stop 10/28/18 at 16:01; Status DC Vancomycin HCl 2 gm/Sodium Chloride 500 ml @ 250 mls/hr 1X ONCE IV Last administered on 10/28/18at 16:58; Start 10/28/18 at 17:00; Stop 10/28/18 at 19:03; Status DC Ondansetron HCl (Zofran) 4 mg PRN Q8HRS PRN IV NAUSEA/VOMITING; Start 10/28/18 at 19:00; Stop 10/29/18 at 18:59; Status DC Acetaminophen (Tylenol) 650 mg PRN Q4HRS PRN PO FEVER Last administered on 10/29/18at 14:00; Start 10/28/18 at 19:00; Stop 10/29/18 at 18:59; Status DC Sodium Chloride 1,000 ml @ 1,000 mls/hr 1X ONCE IV Last administered on 10/28/18at 19:10; Start 10/28/18 at 19:15; Stop 10/28/18 at 20:48; Status DC Linezolid/Dextrose 300 ml @ 300 mls/hr Q12HR IV Last administered on 10/28/18 21:43; Start 10/28/18 at 21:00; Stop 10/29/18 at 08:28; Status DC Benzonatate (Tessalon Perle) 200 mg PRN Q6HRS PRN PO COUGH 2ND CHOICE Last administered on 11/01/18 03:00; Start 10/28/18 at 23:00 Temazepam (Restoril) 15 mg PRN QHS PRN PO INSOMNIA Last administered on 10/31/18 23:34; Start 10/28/18 at 23:00 Alprazolam (Xanax) 0.25 mg PRN Q8HRS PRN PO ANXIETY / AGITATION Last administered on 10/30/18 23:17; Start 10/28/18 at 23:00 Aspirin (Ecotrin) 81 mg DAILYWBKFT PO Last administered on 10/31/18 08:44; Start 10/29/18 at 08:00 Atorvastatin Calcium (Lipitor) 40 mg QHS PO Last administered on 10/31/18 20:20; Start 10/29/18 at 21:00 Guaifenesin (Robitussin Dm) 10 ml PRN Q4HRS PRN PO COUGH 1ST CHOICE Last adm inistered on 10/31/18 23:34; Start 10/28/18 at 23:00 Ibuprofen (Motrin) 400 mg PRN TID PRN PO INFLAMMATION; Start 10/28/18 at 23:00 Albuterol/ Ipratropium (Duoneb) 3 ml RTQID NEB Last administered on 10/31/18at 15:12; Start 10/29/18 at 08:00; Stop 10/31/18 at 16:33; Status DC Metformin HCl (Glucophage) 500 mg BIDWMEALS PO Last administered on 10/31/18 17:35; Start 10/29/18 at 08:00 Nitroglycerin (Nitrostat) 0.4 mg PRN Q5MIN PRN SL CHEST PAIN; Start 10/28/18 at 23:00 Bupropion HCl (Wellbutrin Xl) 300 mg DAILY PO Last administered on 10/31/18 08:44; Start 10/29/18 at 09:00 Duloxetine HCl (Cymbalta) 60 mg DAILY PO Last administered on 10/31/18at 08:44; Start 10/29/18 at 09:00 Non-Formulary Medication (Icosapent Ethyl (Vascepa)) 1 gm DAILY08 PO ; Start 10/29/18 at 08:00; Stop 10/30/18 at 09:09; Status DC Pantoprazole Sodium (Protonix) 40 mg DAILYAC PO Last administered on 10/31/18at 06:01; Start 10/29/18 at 07:30; Stop 11/01/18 at 07:27; Status DC Non-Formulary Medication (Melatonin ) 10 mg HS PRN PO INSOMNIA; Start 10/28/18 at 23:00; Status UNV Fish Oil (Fish Oil) 1,000 mg DAILY PO Last administered on 10/31/18at 08:44; Start 10/29/18 at 09:00 Temazepam (Restoril) 15 mg PRN QHS PRN PO INSOMNIA; Start 10/28/18 at 23:00; Status UNV Benzonatate (Tessalon Perle) 200 mg PRN Q6HRS PO ; Start 10/28/18 at 23:00; Status UNV Meropenem 1 gm/ Sodium Chloride 100 ml @ 200 mls/hr Q8HRS IV Last administered on 11/01/18at 06:39; Start 10/29/18 at 09:00 Guaifenesin (MUCINEX ER with DM) 2 tab BID PO Last administered on 10/31/18at 20:20; Start 10/29/18 at 21:00 Ondansetron HCl (Zofran) 4 mg PRN Q6HRS PRN IV NAUSEA/VOMITING; Start 10/30/18 at 07:00; Stop 10/31/18 at 06:59; Status DC Fentanyl Citrate (Fentanyl 2ml Vial) 25 mcg PRN Q5MIN PRN IV MILD PAIN 1-3; Start 10/30/18 at 07:00; Stop 10/31/18 at 06:59; Status DC Fentanyl Citrate (Fentanyl 2ml Vial) 50 mcg PRN Q5MIN PRN IV MODERATE TO SEVERE PAIN; Start 10/30/18 at 07:00; Stop 10/31/18 at 06:59; Status DC Morphine Sulfate (Morphine Sulfate) 1 mg PRN Q10MIN PRN IV SEVERE PAIN 7-10; Start 10/30/18 at 07:00; Stop 10/31/18 at 06:59; Status DC Ringer's Solution 1,000 ml @ 30 mls/hr Q24H IV Last administered on 10/30/18at 1 0:24; Start 10/30/18 at 07:00; Stop 10/30/18 at 18:59; Status DC Lidocaine HCl (Xylocaine-Mpf 1% 2ml Vial) 2 ml PRN 1X PRN ID PRIOR TO IV START; Start 10/30/18 at 07:00; Stop 10/31/18 at 06:59; Status DC Hydromorphone HCl (Dilaudid) 0.5 mg PRN Q10MIN PRN IV SEV PAIN, Second choice; Start 10/30/18 at 07:00; Stop 10/31/18 at 06:59; Status DC Prochlorperazine Edisylate (Compazine) 5 mg PACU PRN PRN IV NAUSEA, MRX1; Start 10/30/18 at 07:00; Stop 10/31/18 at 06:59; Status DC Acetaminophen/ Codeine Phosphate (Tylenol #3) 2 tab PRN Q6HRS PRN PO MODERATE PAIN Last administered on 11/01/18at 03:00; Start 10/29/18 at 18:00 Ondansetron HCl (Zofran) 4 mg PRN Q6HRS PRN IV NAUSEA/VOMITING Last administered on 11/01/18at 04:23; Start 10/29/18 at 20:15 Lidocaine HCl (Lidocaine 2% Viscous) 100 ml PRN 1X PRN MM MOUTH PAIN Last administered on 10/30/18at 10:33; Start 10/30/18 at 08:15; Stop 10/31/18 at 08:14; Status DC Lidocaine HCl (Lidocaine 1% 20ml Vial) 20 ml PRN 1X PRN INJ SEE COMMENTS Last administered on 10/30/18at 10:32; Start 10/30/18 at 08:15; Stop 10/31/18 at 08:14; Status DC Epinephrine HCl (Adrenalin) 1 mg PRN 1X PRN INJ SEE COMMENTS; Start 10/30/18 at 08:15; Stop 10/31/18 at 08:14; Status DC Lidocaine HCl 50 ml PRN 1X PRN MM SEE COMMENTS Last administered on 10/30/18 10:32; Start 10/30/18 at 08:15; Stop 10/31/18 at 08:14; Status DC Phenol (Chloraseptic) 1 spray PRN Q2HR PRN PO SORE THROAT Last administered on 10/30/18 16:46; Start 10/30/18 at 14:30 Psyllium Hydrophilic Mucilloid (Metamucil Fiber Packet) 1 pkt DAILY PO Last administered on 10/30/18 20:00; Start 10/30/18 at 19:00 Polyethylene Glycol (miraLAX PACKET) 17 gm PRN DAILY PRN PO CONSTIPATION Last administered on 10/31/18 08:44; Start 10/30/18 at 18:45 Docusate Sodium (Colace) 100 mg PRN BID PRN PO HARD STOOLS Last administered on 10/31/18 23:34; Start 10/30/18 at 18:45 Methylprednisolone Sodium Succinate (SOLU-Medrol 40MG VIAL) 40 mg Q8HRS IV Last administered on 11/01/18at 06:39; Start 10/31/18 at 11:00 Budesonide (Pulmicort) 0.5 mg RTBID NEB ; Start 10/31/18 at 11:00 Albuterol/ Ipratropium (Duoneb) 3 ml Q4HRS NEB Last administered on 11/01/18at 02:55; Start 10/31/18 at 16:45 Pantoprazole Sodium (Protonix) 40 mg BIDAC PO ; Start 11/01/18 at 08:00 Active Scripts Active NITROGLYCERIN SubLingual (Nitroglycerin) 0.4 Mg Tab.subl 0.4 Mg SL PRN Q5MIN PRN 30 Days Aspirin Ec (Aspirin) 81 Mg Tablet.dr 81 Mg PO DAILYWBKFT Alprazolam 0.25 Mg Tablet 0.25 Mg PO PRN Q8HRS PRN Atorvastatin Calcium 40 Mg Tablet 40 Mg PO QHS Guaifenesin Dm Syrup (Guaifenesin/Dextromethorphan) 5 Ml Syrup 10 Ml PO PRN Q4HRS PRN 10 Days Duoneb 0.5-3(2.5) Mg/3 Ml (Albuterol/Ipratropium) 3 Ml Ampul.neb 3 Ml NEB RTQID 30 Days Reported Metformin Hcl 500 Mg Tablet 500 Mg PO BID PRN Vascepa (Icosapent Ethyl) 1 Gm Capsule 1 Gm PO DAILY08 Melatonin 3 Mg Tablet 10 Mg PO HS PRN Ibuprofen 400 Mg Tablet 400 Mg PO PRN TID PRN Prevacid (Lansoprazole) 30 Mg Capsule. 1 Cap PO DAILY Lovaza ([place]-3 Acid Ethyl Esters) 1 Gm Capsule 1 Gm PO DAILY08 Wellbutrin Xl (Bupropion Hcl) 300 Mg Tab.er.24h 1 Tab PO DAILY Cymbalta (Duloxetine Hcl) 60 Mg Capsule. 1 Cap PO DAILY Vitals/I & O Vital Sign - Last 24 Hours 10/31/18 10/31/18 10/31/18 10/31/18 08:30 11:00 11:15 12:08 Temp 98.8 98.8 Pulse 89 Resp 18 B/P (MAP) 128/61 (83) Pulse Ox 95 95 95 O2 Delivery Room Air Room Air Room Air Room Air 10/31/18 10/31/18 10/31/18 10/31/18 14:51 15:00 15:13 19:00 Temp 97.6 98.0 97.6 98.0 Pulse 108 100 Resp 14 18 B/P (MAP) 155/77 (103) 138/76 (96) Pulse Ox 95 98 94 94 O2 Delivery Room Air Room Air Room Air Room Air 10/31/18 10/31/18 10/31/18 10/31/18 19:45 20:00 23:00 23:36 Temp 98.1 98.1 Pulse 104 Resp 18 B/P (MAP) 119/68 (85) Pulse Ox 94 92 94 O2 Delivery Room Air Nasal Cannula Room Air Room Air O2 Flow Rate 2.0 11/01/18 11/01/18 02:56 03:00 Temp 98.0 98.0 Pulse 109 Resp 18 B/P (MAP) 140/74 (96) Pulse Ox 94 95 O2 Delivery Room Air Room Air CRISTIAN BELLO MD Nov 01, 2018 07:37
[2018-11-01] MEDS: BUDESONIDE 0.5 MG/2 ML NEBU. NEB SCH ×2 (07:47→20:49)
[2018-11-01] MEDS ORDERED: PANTOPRAZOLE 40 MG TABLET.DR. PO SCH (08:00)
[2018-11-01] MEDS: guaiFENesin DM 200MG/20MG 10 ML SYRUP PO PRN ×3 (08:01→22:01)
[2018-11-01] MEDS: guaiFENesin DM 600/30MG 1 TAB TAB.ER.12H PO SCH ×2 (08:02→22:01)
[2018-11-01] MEDS: metFORMIN 500 MG TABLET PO SCH ×2 (08:03→17:55)
[2018-11-01] MEDS: PSYLLIUM HUSK (SUGAR FREE) 1 PKT PACKET PO SCH (08:04)
[2018-11-01] MEDS: OMEGA-3 FATTY ACIDS/FISH OIL 1,000 MG CAPSULE. PO SCH (08:04)
[2018-11-01] MEDS: ASPIRIN ENTERIC COATED 81 MG TABLET.DR. PO SCH (08:04)
[2018-11-01] MEDS: DULoxetine HCL 30 MG CAPSULE.DR PO SCH (08:04)
[2018-11-01] MEDS: buPROPion XL 150 MG TAB.ER.24H. PO SCH (08:04)
[2018-11-01] MEDS: DOCUSATE SODIUM 100 MG CAPSULE. PO PRN ×2 (08:15→22:02)
[2018-11-01 11:00] VITALS: BP 141/73
--- NOTE | 2018-11-01 12:36 | PDOC ---
Infectious Disease Note Subjective Subjective Not feeling well, + dry cough, reflux, localized CP, nauseous No F/C/S Hoping to go home soon ROS ROS per HPI Vital Sign Vital Signs Vital Signs Date Time Temp Pulse Resp B/P (MAP) Pulse Ox O2 Delivery O2 Flow Rate FiO2 11/01/18 11:00 98.3 107 16 141/73 (95) 90 Room Air 98.3 10/31/18 20:00 2.0 Physical Exam PHYSICAL EXAM GENERAL: Propped up in bed, alert, NAD HEENT: Oral cavity dry NECK: Supple LUNGS: Clear. HEART: S1, S2 regular. ABDOMEN: Obese, soft, nontender EXTREMITIES: No edema, cyanosis. SKIN: Warm to touch NEUROLOGIC: Alert, oriented PIV Labs Lab Laboratory Tests Test 10/31/18 17:11 10/31/18 20:59 11/01/18 03:30 11/01/18 07:22 Glucose (Fingerstick) 174 mg/dL (70-99) 144 mg/dL (70-99) 164 mg/dL (70-99) White Blood Count 10.4 x10^3/uL (4.0-11.0) Red Blood Count 3.86 x10^6/uL (3.50-5.40) Hemoglobin 11.0 g/dL (12.0-15.5) Hematocrit 33.5 % (36.0-47.0) Mean Corpuscular Volume 87 fL (79-100) Mean Corpuscular Hemoglobin 28 pg (25-35) Mean Corpuscular Hemoglobin Concent 33 g/dL (31-37) Red Cell Distribution Width 18.4 % (11.5-14.5) Platelet Count 340 x10^3/uL (140-400) Neutrophils (%) (Auto) 88 % (31-73) Lymphocytes (%) (Auto) 10 % (24-48) Monocytes (%) (Auto) 2 % (0-9) Eosinophils (%) (Auto) 0 % (0-3) Basophils (%) (Auto) 0 % (0-3) Neutrophils # (Auto) 9.1 x10^3/uL (1.8-7.7) Lymphocytes # (Auto) 1.0 x10^3/uL (1.0-4.8) Monocytes # (Auto) 0.2 x10^3/uL (0.0-1.1) Eosinophils # (Auto) 0.0 x10^3/uL (0.0-0.7) Basophils # (Auto) 0.0 x10^3/uL (0.0-0.2) Sodium Level 144 mmol/L (136-145) Potassium Level 4.2 mmol/L (3.5-5.1) Chloride Level 104 mmol/L (98-107) Carbon Dioxide Level 27 mmol/L (21-32) Anion Gap 13 (6-14) Blood Urea Nitrogen 6 mg/dL (7-20) Creatinine 0.9 mg/dL (0.6-1.0) Estimated GFR (Cockcroft-Gault) 65.2 BUN/Creatinine Ratio 7 (6-20) Glucose Level 211 mg/dL (70-99) Calcium Level 9.1 mg/dL (8.5-10.1) Magnesium Level 1.6 mg/dL (1.8-2.4) Total Bilirubin 0.2 mg/dL (0.2-1.0) Aspartate Amino Transf (AST/SGOT) 19 U/L (15-37) Alanine Aminotransferase (ALT/SGPT) 25 U/L (14-59) Alkaline Phosphatase 140 U/L (46-116) Total Protein 6.9 g/dL (6.4-8.2) Albumin 3.0 g/dL (3.4-5.0) Albumin/Globulin Ratio 0.8 (1.0-1.7) Test 11/01/18 11:56 Glucose (Fingerstick) 163 mg/dL (70-99) Micro BRONCH RES 1 Preliminary Comment No growth in 36 - 48 hours. 10/28/18 Blood Culture - Preliminary, Resulted NO GROWTH AFTER 3 DAYS Objective Assessment Symptoms of dizziness, fever, nausea of unclear etiology. She has not had any fever yet here. Leukocytosis - improved Bilateral patchy infiltrate s/p bronchoscopy, 10/30. culture no growth so far History of diagnosis of common variable immunodeficiency. Diabetes. Hypertension. Recent cardiac cath with no significant coronary artery disease. Gastric reflux Plan Plan of Care Meropenem Steroids f/u cultures KATINA neg Pt wants to take her own Rx Prevacid. say Protonix not working. Defer to primary. May have cough from reflux D/w nursing Attending Co-Sign Attending Co-Sign The patient was seen and interviewed as well as examined at the bedside. The chart was reviewed. The case was discussed. Agree with the plan of care. SARA [place] APRN Nov 01, 2018 12:36 STAS GLEASON MD Nov 01, 2018 15:54
[2018-11-01 15:00] VITALS: BP 150/78
[2018-11-01] MEDS ORDERED: MAGNESIUM SULFATE 2GM 50 ML IV ONE (15:00)
[2018-11-01] MEDS ORDERED: LANSOPRAZOLE 30 MG TAB.RAP.DR PO SCH (16:30)
[2018-11-01 19:55] VITALS: BP 159/71
[2018-11-01] MEDS ORDERED: guaiFENesin DM 600/30MG 1 TAB TAB.ER.12H PO SCH (21:00)
[2018-11-01] MEDS: BENZONATATE 100 MG CAPSULE. PO SCH (22:01)
[2018-11-01] MEDS: POLYETHYLENE GLYCOL 3350 17 GM PACKET. PO PRN (22:01)
[2018-11-01] MEDS: ALPRAZolam 0.25 MG TABLET PO PRN (22:02)
[2018-11-01] MEDS: ATORVASTATIN CALCIUM 40 MG TABLET. PO SCH (22:02)
[2018-11-01] MEDS: TEMAZEPAM 15 MG CAPSULE PO PRN (22:02)
[2018-11-01] MEDS: LANSOPRAZOLE 30 MG TAB.RAP.DR PO SCH (22:03)
[2018-11-01 22:53] VITALS: BP 145/72
[2018-11-02 02:25] VITALS: BP 149/72
[2018-11-02] MEDS: guaiFENesin DM 200MG/20MG 10 ML SYRUP PO PRN (02:44)
[2018-11-02] MEDS: IPRATRPIUM/ALBUTEROL 0.5/2.5MG 3 ML NEBU. NEB SCH ×6 (04:00→19:55)
[2018-11-02] MEDS: methylPREDNISolone SOD SUCC PF 40 MG/ML VIAL. IV SCH ×2 (06:51→20:13)
[2018-11-02] MEDS: MEROPENEM 1 GM in IV NORMAL SALINE 100ML 100 ML IV SCH ×3 (06:51→21:35)
--- NOTE | 2018-11-02 06:59 | PDOC ---
PULMONARY PROGRESS NOTES Subjective cough sob better, gerd symptoms better Vitals Vital Signs Date Time Temp Pulse Resp B/P (MAP) Pulse Ox O2 Delivery O2 Flow Rate FiO2 11/02/18 02:25 98.0 96 18 149/72 (97) 93 Room Air 98.0 11/01/18 20:00 2.0 ROS: No Nausea General: Alert, No acute distress Lungs: Crackles, Other (decrease bs BASILAR CRACKLES BILATERAL) Cardiovascular: S1, S2 Abdomen: Soft, Non-tender Neuro Exam: Alert Extremities: No Edema Skin: Warm Labs Laboratory Tests Test 10/31/18 08:03 10/31/18 12:11 10/31/18 17:11 10/31/18 20:59 Glucose (Fingerstick) 106 mg/dL (70-99) 90 mg/dL (70-99) 174 mg/dL (70-99) 144 mg/dL (70-99) Test 11/01/18 03:30 11/01/18 07:22 11/01/18 11:56 11/01/18 17:23 White Blood Count 10.4 x10^3/uL (4.0-11.0) Red Blood Count 3.86 x10^6/uL (3.50-5.40) Hemoglobin 11.0 g/dL (12.0-15.5) Hematocrit 33.5 % (36.0-47.0) Mean Corpuscular Volume 87 fL (79-100) Mean Corpuscular Hemoglobin 28 pg (25-35) Mean Corpuscular Hemoglobin Concent 33 g/dL (31-37) Red Cell Distribution Width 18.4 % (11.5-14.5) Platelet Count 340 x10^3/uL (140-400) Neutrophils (%) (Auto) 88 % (31-73) Lymphocytes (%) (Auto) 10 % (24-48) Monocytes (%) (Auto) 2 % (0-9) Eosinophils (%) (Auto) 0 % (0-3) Basophils (%) (Auto) 0 % (0-3) Neutrophils # (Auto) 9.1 x10^3/uL (1.8-7.7) Lymphocytes # (Auto) 1.0 x10^3/uL (1.0-4.8) Monocytes # (Auto) 0.2 x10^3/uL (0.0-1.1) Eosinophils # (Auto) 0.0 x10^3/uL (0.0-0.7) Basophils # (Auto) 0.0 x10^3/uL (0.0-0.2) Sodium Level 144 mmol/L (136-145) Potassium Level 4.2 mmol/L (3.5-5.1) Chloride Level 104 mmol/L (98-107) Carbon Dioxide Level 27 mmol/L (21-32) Anion Gap 13 (6-14) Blood Urea Nitrogen 6 mg/dL (7-20) Creatinine 0.9 mg/dL (0.6-1.0) Estimated GFR (Cockcroft-Gault) 65.2 BUN/Creatinine Ratio 7 (6-20) Glucose Level 211 mg/dL (70-99) Calcium Level 9.1 mg/dL (8.5-10.1) Magnesium Level 1.6 mg/dL (1.8-2.4) Total Bilirubin 0.2 mg/dL (0.2-1.0) Aspartate Amino Transf (AST/SGOT) 19 U/L (15-37) Alanine Aminotransferase (ALT/SGPT) 25 U/L (14-59) Alkaline Phosphatase 140 U/L (46-116) Total Protein 6.9 g/dL (6.4-8.2) Albumin 3.0 g/dL (3.4-5.0) Albumin/Globulin Ratio 0.8 (1.0-1.7) Glucose (Fingerstick) 164 mg/dL (70-99) 163 mg/dL (70-99) 139 mg/dL (70-99) Test 11/01/18 20:41 Glucose (Fingerstick) 182 mg/dL (70-99) Laboratory Tests Test 11/01/18 07:22 11/01/18 11:56 11/01/18 17:23 11/01/18 20:41 Glucose (Fingerstick) 164 mg/dL (70-99) 163 mg/dL (70-99) 139 mg/dL (70-99) 182 mg/dL (70-99) Medications Active Scripts Medications Dose Route/Sig Max Daily Dose Days Date Category NITROGLYCERIN SubLingual (Nitroglycerin) 0.4 Mg Tab.subl 0.4 Mg SL PRN Q5MIN PRN 30 10/21/18 Rx Aspirin Ec (Aspirin) 81 Mg Tablet.dr 81 Mg PO DAILYWBKFT 10/21/18 Rx Alprazolam 0.25 Mg Tablet 0.25 Mg PO PRN Q8HRS PRN 10/21/18 Rx Atorvastatin Calcium 40 Mg Tablet 40 Mg PO QHS 10/21/18 Rx Guaifenesin Dm Syrup (Guaifenesin/Dextromethorphan) 5 Ml Syrup 10 Ml PO PRN Q4HRS PRN 10 10/04/18 Rx Metformin Hcl 500 Mg Tablet 500 Mg PO BID PRN 09/29/18 Reported Vascepa (Icosapent Ethyl) 1 Gm Capsule 1 Gm PO DAILY08 09/29/18 Reported Duoneb 0.5-3(2.5) Mg/3 Ml (Albuterol/Ipratropium) 3 Ml Ampul.neb 3 Ml NEB RTQID 30 05/30/17 Rx Melatonin 3 Mg Tablet 10 Mg PO HS PRN 05/28/17 Reported Ibuprofen 400 Mg Tablet 400 Mg PO PRN TID PRN 05/28/17 Reported Prevacid (Lansoprazole) 30 Mg Capsule.dr 1 Cap PO DAILY 05/28/17 Reported Lovaza ([place]-3 Acid Ethyl Esters) 1 Gm Capsule 1 Gm PO DAILY08 05/28/17 Reported Wellbutrin Xl (Bupropion Hcl) 300 Mg Tab.er.24h 1 Tab PO DAILY 05/28/17 Reported Cymbalta (Duloxetine Hcl) 60 Mg Capsule.dr 1 Cap PO DAILY 05/28/17 Reported Impression . 1. 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 She was treated for pneumonia in September and now comes in with recurrent pneumonia. Her CT chest findings are showing more consolidation in the right lower lobe compared to previous CAT scan and also infiltrates in the left lower lobe. She is immunocompromised s/p bronchoscopy 2. Forty years of tobacco use, suspect underlying chronic obstructive pulmonary disease. Plan . 1. change solumedrol to bid, cont protonix to bid follow bronchoscopy cultures, so far neg 2. Continue broad spectrum antibiotics per Dr. Agarwal. 3. We will obtain records from her PCP regarding the immunoglobulin levels and the diagnosis. 4. Continue bronchodilators. discussed w pt NICHOLE DONOHUE MD Nov 02, 2018 06:59
[2018-11-02 07:00] VITALS: BP 163/66
[2018-11-02] MEDS: BUDESONIDE 0.5 MG/2 ML NEBU. NEB SCH ×2 (08:25→19:55)
[2018-11-02] MEDS: PSYLLIUM HUSK (SUGAR FREE) 1 PKT PACKET PO SCH (08:50)
[2018-11-02] MEDS: BENZONATATE 100 MG CAPSULE. PO SCH ×3 (08:50→20:14)
[2018-11-02] MEDS: OMEGA-3 FATTY ACIDS/FISH OIL 1,000 MG CAPSULE. PO SCH (08:50)
[2018-11-02] MEDS: LANSOPRAZOLE 30 MG TAB.RAP.DR PO SCH ×2 (08:51→20:13)
[2018-11-02] MEDS: buPROPion XL 150 MG TAB.ER.24H. PO SCH (08:51)
[2018-11-02] MEDS: DULoxetine HCL 30 MG CAPSULE.DR PO SCH (08:51)
[2018-11-02] MEDS: metFORMIN 500 MG TABLET PO SCH ×2 (08:52→17:38)
[2018-11-02] MEDS: ASPIRIN ENTERIC COATED 81 MG TABLET.DR. PO SCH (08:52)
[2018-11-02] MEDS: guaiFENesin DM 600/30MG 1 TAB TAB.ER.12H PO SCH ×2 (08:55→20:13)
--- NOTE | 2018-11-02 09:22 | PDOC ---
PROGRESS NOTES History of Present Illness History of Present Illness ASSESSMENT AND PLAN: Bilateral pneumonia and leukocytosis. obesity, morbid Patchy areas of consolidation in the lower lobes, as well as the right middle lobe and lingula. This is favored to be infectious versus inflammatory in etiology. Given distribution possible aspiration. 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 She was treated for pneumonia in September and now //// recurrent pneumonia Hepatic steatosis. Small hiatal hernia. SEPSIS BRONCH RES 1 Preliminary Comment No growth in 36 - 48 hours. admitted, IV antibiotics, MEREM breathing treatments, oxygen. SUPPORT iv steroids, home meds, DVT prophylaxis. Consult Dr. Forde. bronch culture pending KATINA pending DISCUSSED NEED TO STOP VAPING FOREVER 37 MIN PT EXAM, CHART REVIEW, > 50% OF TIME SPENT WITH EXAM, CHART REVIEW, PT CARE COORDINATION PROCEDURE: Bronchoscopy. INDICATIONS: Recurrent pneumonia. DESCRIPTION OF PROCEDURE: Informed consent was obtained from the patient. She agreed to proceed with the procedure. Propofol was used by Anesthesia for sedation. Bronch was introduced through the oral route as the nasal passages were tight. Vocal cords moves equally with respiration. The trachea was entered. No tracheal lesions seen. Maryann sharp. Right lung was examined. Minimal light creamy secretions seen in the right mainstem, which were removed. No significant secretions seen in the right upper, right middle or right lower lobe. Bronchoalveolar lavage performed from right lower lobe. No endobronchial lesions seen. Bronch was introduced into the left lung. Creamy secretions in the left main stem bronchus. No endobronchial lesion seen in all the subsegments of left upper lobe, lingula and left lower lobe. Bronchoalveolar lavage performed from the left lower lobe. The patient tolerated the procedure well. IMPRESSION: 1. Creamy secretion seen on the left main stem bronchus and also minimally in the right main stem bronchus. 2. Bronchoalveolar lavage performed from the right lower lobe and left lower lobe. 3. No endobronchial lesion seen. 4. Follow the culture results. Vitals Vitals Vital Signs Date Time Temp Pulse Resp B/P (MAP) Pulse Ox O2 Delivery O2 Flow Rate FiO2 11/02/18 07:00 98.2 83 16 163/66 (98) 94 Room Air 98.2 11/01/18 20:00 2.0 Physical Exam Physical Exam GENERAL: Propped up in bed, alert, NAD HEENT: Oral cavity dry NECK: Supple LUNGS: Clear. HEART: S1, S2 regular. ABDOMEN: Obese, soft, nontender EXTREMITIES: No edema, cyanosis. SKIN: Warm to touch NEUROLOGIC: Alert, oriented PIV General: Alert, Oriented X3, Cooperative, mild distress Heart: Regular rate, Normal S1 Lungs: Other (decrease bs BASILAR CRACKLES BILATERAL) Abdomen: Normal bowel sounds, Soft Extremities: No clubbing, No cyanosis, No edema Skin: No significant lesion Labs LABS PATIENT: YAKOV DUKE ACCT: [id number] LOC: [address] [place] [address] U: [id number] AGE/SX: 53/F ROOM: [facility] RE10/28/[address]: CADEN GUERRERO III DO : 1965 BED: 1 DIS: STATUS: ADM IN TLOC: SPEC #: [id number] OLYA: 10/28/18-1703 STATUS: RES REQ #: [id number] RECD: 10/28/18-[address]: MINA GAMBINO APRN SOURCE: BLOOD ENTR: 10/28/18-[address] [facility] [address]: KALNIA WEBER DO [facility]: ORDERED: BCULT Procedure Result BLOOD CULTURE Preliminary NO GROWTH AFTER 4 DAYS EC #: [id number] OLYA: 10/30/18 STATUS: RES REQ #: [id number] RECD: 10/30/[address]: CADEN GUERRERO III, DO SOURCE: BRONCH [place] ENTR: 10/30/[address]: VAL ARANDA MD SPDESC: RT LOW KALINA STRANGE AMAN U MD PASNOORI, VENKAT R MD ORDERED: AFB CULT, WILBUR CULT,OTHER COMMENTS: BAL, RLL AND LLL Procedure Result AFB SPECIMEN PROCESSING Final Concentration AFB CULTURE FINAL PENDING AFB CULTURE GRAM STAIN Final Negative Performed at: - [facility] [address] [facility] [address], [place], [place] [id number] Last Trimmer: ARAM Issa MD, Phone: [phone] FUNGAL CULTURE,OTHER PENDING WILBUR CULT RES 1 PENDING Laboratory Tests Test 11/01/18 11:56 11/01/18 17:23 11/01/18 20:41 11/02/18 07:46 Glucose (Fingerstick) 163 mg/dL (70-99) 139 mg/dL (70-99) 182 mg/dL (70-99) 99 mg/dL (70-99) Assessment and Plan Assessmemt and Plan Problems Medical Problems: (1) Chest pain Status: Acute (2) Leukocytosis Status: Acute (3) Pneumonia Status: Acute (4) Sepsis Status: Acute Comment Review of Relevant I have reviewed the following items aide (where applicable) has been applied. Labs Laboratory Tests Test 10/31/18 12:11 10/31/18 17:11 10/31/18 20:59 11/01/18 03:30 Glucose (Fingerstick) 90 mg/dL (70-99) 174 mg/dL (70-99) 144 mg/dL (70-99) White Blood Count 10.4 x10^3/uL (4.0-11.0) Red Blood Count 3.86 x10^6/uL (3.50-5.40) Hemoglobin 11.0 g/dL (12.0-15.5) Hematocrit 33.5 % (36.0-47.0) Mean Corpuscular Volume 87 fL (79-100) Mean Corpuscular Hemoglobin 28 pg (25-35) Mean Corpuscular Hemoglobin Concent 33 g/dL (31-37) Red Cell Distribution Width 18.4 % (11.5-14.5) Platelet Count 340 x10^3/uL (140-400) Neutrophils (%) (Auto) 88 % (31-73) Lymphocytes (%) (Auto) 10 % (24-48) Monocytes (%) (Auto) 2 % (0-9) Eosinophils (%) (Auto) 0 % (0-3) Basophils (%) (Auto) 0 % (0-3) Neutrophils # (Auto) 9.1 x10^3/uL (1.8-7.7) Lymphocytes # (Auto) 1.0 x10^3/uL (1.0-4.8) Monocytes # (Auto) 0.2 x10^3/uL (0.0-1.1) Eosinophils # (Auto) 0.0 x10^3/uL (0.0-0.7) Basophils # (Auto) 0.0 x10^3/uL (0.0-0.2) Sodium Level 144 mmol/L (136-145) Potassium Level 4.2 mmol/L (3.5-5.1) Chloride Level 104 mmol/L (98-107) Carbon Dioxide Level 27 mmol/L (21-32) Anion Gap 13 (6-14) Blood Urea Nitrogen 6 mg/dL (7-20) Creatinine 0.9 mg/dL (0.6-1.0) Estimated GFR (Cockcroft-Gault) 65.2 BUN/Creatinine Ratio 7 (6-20) Glucose Level 211 mg/dL (70-99) Calcium Level 9.1 mg/dL (8.5-10.1) Magnesium Level 1.6 mg/dL (1.8-2.4) Total Bilirubin 0.2 mg/dL (0.2-1.0) Aspartate Amino Transf (AST/SGOT) 19 U/L (15-37) Alanine Aminotransferase (ALT/SGPT) 25 U/L (14-59) Alkaline Phosphatase 140 U/L (46-116) Total Protein 6.9 g/dL (6.4-8.2) Albumin 3.0 g/dL (3.4-5.0) Albumin/Globulin Ratio 0.8 (1.0-1.7) Test 11/01/18 07:22 11/01/18 11:56 11/01/18 17:23 11/01/18 20:41 Glucose (Fingerstick) 164 mg/dL (70-99) 163 mg/dL (70-99) 139 mg/dL (70-99) 182 mg/dL (70-99) Test 11/02/18 07:46 Glucose (Fingerstick) 99 mg/dL (70-99) Laboratory Tests Test 11/01/18 11:56 11/01/18 17:23 11/01/18 20:41 11/02/18 07:46 Glucose (Fingerstick) 163 mg/dL (70-99) 139 mg/dL (70-99) 182 mg/dL (70-99) 99 mg/dL (70-99) Microbiology 10/30/18 AFB Specimen Processing Tissue - Final, Resulted 10/30/18 Acid Fast Bacilli Culture, Resulted Pending 10/30/18 Gram Stain - Final, Resulted 10/30/18 Fungal Culture, Resulted Pending 10/30/18 Fungal Culture Result 1, Resulted Pending 10/28/18 Blood Culture - Preliminary, Resulted NO GROWTH AFTER 4 DAYS Medications Current Medications Sodium Chloride 1,000 ml @ 1,860 mls/hr Q33M IV Last administered on 10/28/18at 16:55; Start 10/28/18 at 15:50; Stop 10/28/18 at 16:50; Status DC Piperacillin Sod/ Tazobactam Sod 4.5 gm/Sodium Chloride 100 ml @ 200 mls/hr 1X ONCE IV Last administered on 10/28/18at 16:22; Start 10/28/18 at 16:00; Stop 10/28/18 at 16:29; Status DC Vancomycin HCl (Vanco Per Pharmacy) 1 each 1X ONCE MC ; Start 10/28/18 at 16:00; Stop 10/29/18 at 08:28; Status DC Fentanyl Citrate (Fentanyl 2ml Vial) 50 mcg PRN Q15MIN PRN IV PAIN GREATER THAN 3/10 Last administered on 10/28/18at 17:01; Start 10/28/18 at 16:00; Stop 10/29/18 at 15:59; Status DC Aspirin (Daren Aspirin) 325 mg 1X ONCE PO Last administered on 10/28/18at 16:22; Start 10/28/18 at 16:30; Stop 10/28/18 at 16:31; Status DC Nitroglycerin (Nitrostat) 0.4 mg PRN Q5MIN PRN SL CP RATING > 1/10 Last administered on 10/28/18at 16:22; Start 10/28/18 at 16:00; Stop 10/29/18 at 14:23; Status DC Acetaminophen (Tylenol) 1,000 mg 1X ONCE PO Last administered on 10/28/18 16:22; Start 10/28/18 at 16:00; Stop 10/28/18 at 16:01; Status DC Vancomycin HCl 2 gm/Sodium Chloride 500 ml @ 250 mls/hr 1X ONCE IV Last administered on 10/28/18 16:58; Start 10/28/18 at 17:00; Stop 10/28/18 at 19:03; Status DC Ondansetron HCl (Zofran) 4 mg PRN Q8HRS PRN IV NAUSEA/VOMITING; Start 10/28/18 at 19:00; Stop 10/29/18 at 18:59; Status DC Acetaminophen (Tylenol) 650 mg PRN Q4HRS PRN PO FEVER Last administered on 10/29/18 14:00; Start 10/28/18 at 19:00; Stop 10/29/18 at 18:59; Status DC Sodium Chloride 1,000 ml @ 1,000 mls/hr 1X ONCE IV Last administered on 10/28/18 19:10; Start 10/28/18 at 19:15; Stop 10/28/18 at 20:48; Status DC Linezolid/Dextrose 300 ml @ 300 mls/hr Q12HR IV Last administered on 10/28/18 21:43; Start 10/28/18 at 21:00; Stop 10/29/18 at 08:28; Status DC Benzonatate (Tessalon Perle) 200 mg PRN Q6HRS PRN PO COUGH 2ND CHOICE Last administered on 11/01/18 09:34; Start 10/28/18 at 23:00 Temazepam (Restoril) 15 mg PRN QHS PRN PO INSOMNIA Last administered on 11/01/18 22:03; Start 10/28/18 at 23:00 Alprazolam (Xanax) 0.25 mg PRN Q8HRS PRN PO ANXIETY / AGITATION Last administered on 11/01/18 22:03; Start 10/28/18 at 23:00 Aspirin (Ecotrin) 81 mg DAILYWBKFT PO Last administered on 11/02/18 08:55; Start 10/29/18 at 08:00 Atorvastatin Calcium (Lipitor) 40 mg QHS PO Last administered on 9/7/19at 22:03; Start 10/29/18 at 21:00 Guaifenesin (Robitussin Dm) 10 ml PRN Q4HRS PRN PO COUGH 1ST CHOICE Last administered on 11/02/18at 02:44; Start 10/28/18 at 23:00 Ibuprofen (Motrin) 400 mg PRN TID PRN PO INFLAMMATION; Start 10/28/18 at 23:00 Albuterol/ Ipratropium (Duoneb) 3 ml RTQID NEB Last administered on 10/31/18at 15:12; Start 10/29/18 at 08:00; Stop 10/31/18 at 16:33; Status DC Metformin HCl (Glucophage) 500 mg BIDWMEALS PO Last administered on 11/02/18at 08:55; Start 10/29/18 at 08:00 Nitroglycerin (Nitrostat) 0.4 mg PRN Q5MIN PRN SL CHEST PAIN; Start 10/28/18 at 23:00 Bupropion HCl (Wellbutrin Xl) 300 mg DAILY PO Last administered on 11/02/18at 08:55; Start 10/29/18 at 09:00 Duloxetine HCl (Cymbalta) 60 mg DAILY PO Last administered on 11/02/18 08:55; Start 10/29/18 at 09:00 Non-Formulary Medication (Icosapent Ethyl (Vascepa)) 1 gm DAILY08 PO ; Start 10/29/18 at 08:00; Stop 10/30/18 at 09:09; Status DC Pantoprazole Sodium (Protonix) 40 mg DAILYAC PO Last administered on 10/31/18at 06:01; Start 10/29/18 at 07:30; Stop 11/01/18 at 07:27; Status DC Non-Formulary Medication (Melatonin ) 10 mg HS PRN PO INSOMNIA; Start 10/28/18 at 23:00; Status UNV Fish Oil (Fish Oil) 1,000 mg DAILY PO Last administered on 11/02/18at 08:55; Start 10/29/18 at 09:00 Temazepam (Restoril) 15 mg PRN QHS PRN PO INSOMNIA; Start 10/28/18 at 23:00; Status UNV Benzonatate (Tessalon Perle) 200 mg PRN Q6HRS PO ; Start 10/28/18 at 23:00; Status UNV Meropenem 1 gm/ Sodium Chloride 100 ml @ 200 mls/hr Q8HRS IV Last administered on 11/02/18at 06:51; Start 10/29/18 at 09:00 Guaifenesin (MUCINEX ER with DM) 2 tab BID PO Last administered on 11/02/18at 08 :55; Start 10/29/18 at 21:00 Ondansetron HCl (Zofran) 4 mg PRN Q6HRS PRN IV NAUSEA/VOMITING; Start 10/30/18 at 07:00; Stop 10/31/18 at 06:59; Status DC Fentanyl Citrate (Fentanyl 2ml Vial) 25 mcg PRN Q5MIN PRN IV MILD PAIN 1-3; Start 10/30/18 at 07:00; Stop 10/31/18 at 06:59; Status DC Fentanyl Citrate (Fentanyl 2ml Vial) 50 mcg PRN Q5MIN PRN IV MODERATE TO SEVERE PAIN; Start 10/30/18 at 07:00; Stop 10/31/18 at 06:59; Status DC Morphine Sulfate (Morphine Sulfate) 1 mg PRN Q10MIN PRN IV SEVERE PAIN 7-10; Start 10/30/18 at 07:00; Stop 10/31/18 at 06:59; Status DC Ringer's Solution 1,000 ml @ 30 mls/hr Q24H IV Last administered on 10/30/18at 10:24; Start 10/30/18 at 07:00; Stop 10/30/18 at 18:59; Status DC Lidocaine HCl (Xylocaine-Mpf 1% 2ml Vial) 2 ml PRN 1X PRN ID PRIOR TO IV START; Start 10/30/18 at 07:00; Stop 10/31/18 at 06:59; Status DC Hydromorphone HCl (Dilaudid) 0.5 mg PRN Q10MIN PRN IV SEV PAIN, Second choice; Start 10/30/18 at 07:00; Stop 10/31/18 at 06:59; Status DC Prochlorperazine Edisylate (Compazine) 5 mg PACU PRN PRN IV NAUSEA, MRX1; Start 10/30/18 at 07:00; Stop 10/31/18 at 06:59; Status DC Acetaminophen/ Codeine Phosphate (Tylenol #3) 2 tab PRN Q6HRS PRN PO MODERATE PAIN Last administered on 11/01/18 22:03; Start 10/29/18 at 18:00 Ondansetron HCl (Zofran) 4 mg PRN Q6HRS PRN IV NAUSEA/VOMITING Last administered on 11/01/18 09:40; Start 10/29/18 at 20:15 Lidocaine HCl (Lidocaine 2% Viscous) 100 ml PRN 1X PRN MM MOUTH PAIN Last administered on 10/30/18 10:33; Start 10/30/18 at 08:15; Stop 10/31/18 at 08:14; Status DC Lidocaine HCl (Lidocaine 1% 20ml Vial) 20 ml PRN 1X PRN INJ SEE COMMENTS Last administered on 10/30/18 10:32; Start 10/30/18 at 08:15; Stop 10/31/18 at 08:14; Status DC Epinephrine HCl (Adrenalin) 1 mg PRN 1X PRN INJ SEE COMMENTS; Start 10/30/18 at 08:15; Stop 10/31/18 at 08:14; Status DC Lidocaine HCl 50 ml PRN 1X PRN MM SEE COMMENTS Last administered on 10/30/18 10:32; Start 10/30/18 at 08:15; Stop 10/31/18 at 08:14; Status DC Phenol (Chloraseptic) 1 spray PRN Q2HR PRN PO SORE THROAT Last administered on 10/30/18 16:46; Start 10/30/18 at 14:30 Psyllium Hydrophilic Mucilloid (Metamucil Fiber Packet) 1 pkt DAILY PO Last administered on 11/02/18 08:55; Start 10/30/18 at 19:00 Polyethylene Glycol (miraLAX PACKET) 17 gm PRN DAILY PRN PO CONSTIPATION Last administered on 11/01/18 22:03; Start 10/30/18 at 18:45 Docusate Sodium (Colace) 100 mg PRN BID PRN PO HARD STOOLS Last administered on 11/01/18 22:03; Start 10/30/18 at 18:45 Methylprednisolone Sodium Succinate (SOLU-Medrol 40MG VIAL) 40 mg Q8HRS IV Last administered on 11/02/18 06:51; Start 10/31/18 at 11:00; Stop 11/02/18 at 07:00; Status DC Budesonide (Pulmicort) 0.5 mg RTBID NEB Last administered on 11/02/18at 08:25; Start 10/31/18 at 11:00 Albuterol/ Ipratropium (Duoneb) 3 ml Q4HRS NEB Last administered on 11/02/18at 08:25; Start 10/31/18 at 16:45 Pantoprazole Sodium (Protonix) 40 mg BIDAC PO Last administered on 11/01/18at 08:15; Start 11/01/18 at 08:00; Stop 11/01/18 at 16:27; Status DC Benzonatate (Tessalon Perle) 200 mg [id number] PO Last administered on 11/02/18at 08:55; Start 11/01/18 at 21:00 Guaifenesin (MUCINEX ER with DM) 2 tab BID PO ; Start 11/01/18 at 21:00; Stop at 14:31; Status DC Magnesium Sulfate 50 ml @ 25 mls/hr 1X ONCE IV Last administered on 11/01/18at 15:51; Start 11/01/18 at 15:00; Stop 11/01/18 at 16:59; Status DC Lansoprazole (Prevacid) 30 mg DAILY PO ; Start 11/01/18 at 16:30; Stop 11/01/18 at 17:55; Status DC Lansoprazole (Prevacid) 30 mg BID PO Last administered on 11/02/18at 08:55; Start 11/01/18 at 21:00 Methylprednisolone Sodium Succinate (SOLU-Medrol 40MG VIAL) 40 mg Q12HR IV ; Start 11/02/18 at 21:00 Active Scripts Active NITROGLYCERIN SubLingual (Nitroglycerin) 0.4 Mg Tab.subl 0.4 Mg SL PRN Q5MIN PRN 30 Days Aspirin Ec (Aspirin) 81 Mg Tablet.dr 81 Mg PO DAILYWBKFT Alprazolam 0.25 Mg Tablet 0.25 Mg PO PRN Q8HRS PRN Atorvastatin Calcium 40 Mg Tablet 40 Mg PO QHS Guaifenesin Dm Syrup (Guaifenesin/Dextromethorphan) 5 Ml Syrup 10 Ml PO PRN Q4HRS PRN 10 Days Duoneb 0.5-3(2.5) Mg/3 Ml (Albuterol/Ipratropium) 3 Ml Ampul.neb 3 Ml NEB RTQID 30 Days Reported Metformin Hcl 500 Mg Tablet 500 Mg PO BID PRN Vascepa (Icosapent Ethyl) 1 Gm Capsule 1 Gm PO DAILY08 Melatonin 3 Mg Tablet 10 Mg PO HS PRN Ibuprofen 400 Mg Tablet 400 Mg PO PRN TID PRN Prevacid (Lansoprazole) 30 Mg Capsule. 1 Cap PO DAILY Lovaza ([place]-3 Acid Ethyl Esters) 1 Gm Capsule 1 Gm PO DAILY08 Wellbutrin Xl (Bupropion Hcl) 300 Mg Tab.er.24h 1 Tab PO DAILY Cymbalta (Duloxetine Hcl) 60 Mg Capsule. 1 Cap PO DAILY Vitals/I & O Vital Sign - Last 24 Hours 11/01/18 11/01/18 11/01/18 11/01/18 09:46 11:00 13:19 14:35 Temp 98.3 98.3 Pulse 107 Resp 16 16 16 B/P (MAP) 141/73 (95) Pulse Ox 90 94 O2 Delivery Room Air Room Air Room Air Room Air 11/01/18 11/01/18 11/01/18 11/01/18 15:00 15:36 17:25 19:55 Temp 98.1 98.0 98.1 98.0 Pulse 109 106 Resp 20 16 20 B/P (MAP) 150/78 (102) 159/71 (100) Pulse Ox 92 93 94 O2 Delivery Room Air Room Air Room Air Room Air 11/01/18 11/01/18 11/01/18 11/02/18 20:00 20:50 22:53 02:25 Temp 98.3 98.0 98.3 98.0 Pulse 104 96 Resp 18 18 B/P (MAP) 145/72 (96) 149/72 (97) Pulse Ox 97 93 O2 Delivery Nasal Cannula Room Air Room Air Room Air O2 Flow Rate 2.0 11/02/18 07:00 Temp 98.2 98.2 Pulse 83 Resp 16 B/P (MAP) 163/66 (98) Pulse Ox 94 O2 Delivery Room Air Intake and Output 11/01/18 11/01/18 11/02/18 14:59 22:59 06:59 Intake Total 600 ml 1380 ml Output Total 2 ml Balance 598 ml 1380 ml CRISTIAN BELLO MD Nov 02, 2018 09:22
[2018-11-02 11:00] VITALS: BP 142/88
--- NOTE | 2018-11-02 11:55 | PDOC ---
Infectious Disease Note Subjective Subjective Picked up vaping a month ago to help quit smoking cigarettes Less cough and reflux today after resuming Prevacid but still cannot stop coughing. Has used codeine with previous success Feeling better, hoping to go home maybe tomorrow [place] nauseas last night, improved with tea and some walking No fevers ROS ROS o/w neg Vital Sign Vital Signs Vital Signs Date Time Temp Pulse Resp B/P (MAP) Pulse Ox O2 Delivery O2 Flow Rate FiO2 11/02/18 08:25 Room Air 11/02/18 08:00 2.0 11/02/18 07:00 98.2 83 16 163/66 (98) 94 98.2 Physical Exam PHYSICAL EXAM GENERAL: Propped up in bed, alert, NAD HEENT: Oral cavity dry NECK: Supple LUNGS: Clear. HEART: S1, S2 regular. ABDOMEN: Obese, soft, nontender EXTREMITIES: No edema, cyanosis. SKIN: Warm to touch NEUROLOGIC: Alert, oriented PIV Labs Lab Laboratory Tests Test 11/01/18 11:56 11/01/18 17:23 11/01/18 20:41 11/02/18 07:46 Glucose (Fingerstick) 163 mg/dL (70-99) 139 mg/dL (70-99) 182 mg/dL (70-99) 99 mg/dL (70-99) Micro BRONCH RES 1 Preliminary Comment No growth in 36 - 48 hours. AFB CULTURE GRAM STAIN Final Negative 10/28/18 Blood Culture - Preliminary, Resulted NO GROWTH AFTER 4 DAYS Objective Assessment Symptoms of dizziness, fever, nausea of unclear etiology. She has not had any fever yet here. - better Leukocytosis - improved Bilateral patchy infiltrate s/p bronchoscopy, 10/30. culture no growth so far History of diagnosis of common variable immunodeficiency. Diabetes. Hypertension. Recent cardiac cath with no significant coronary artery disease. Gastric reflux Vaping Plan Plan of Care Meropenem Steroids bronch cultures/AFB neg KATINA neg discussed quitting vaping Add Vikas with Lloyd kerr Attending Co-Sign Attending Co-Sign The patient was seen and interviewed as well as examined at the bedside. The chart was reviewed. The case was discussed. Agree with the plan of care. SARA [place] APRN Nov 02, 2018 11:55 STAS GLEASON MD Nov 02, 2018 13:22
[2018-11-02] MEDS: guaiFENesin/CODEINE 100mg/10mg 5 ML LIQUID PO PRN ×2 (13:58→20:14)
[2018-11-02 15:00] VITALS: BP 149/76
[2018-11-02 19:20] VITALS: BP 144/79
--- NOTE | 2018-11-02 19:20 | NUR ---
Pt in bed assessment completed vss poc explained pt denies pain will resume care and continue to monitor pt.call light in reach pt up amb in hallway.
[2018-11-02] MEDS: ATORVASTATIN CALCIUM 40 MG TABLET. PO SCH (20:14)
[2018-11-02] MEDS: ALPRAZolam 0.25 MG TABLET PO PRN (23:02)
[2018-11-02] MEDS: TEMAZEPAM 15 MG CAPSULE PO PRN (23:02)
[2018-11-02 23:04] VITALS: BP 165/74
[2018-11-03] MEDS: guaiFENesin/CODEINE 100mg/10mg 5 ML LIQUID PO PRN (03:09)
[2018-11-03 03:10] VITALS: BP 119/70
[2018-11-03] MEDS: IPRATRPIUM/ALBUTEROL 0.5/2.5MG 3 ML NEBU. NEB SCH ×4 (04:00→11:51)
[2018-11-03] MEDS: MEROPENEM 1 GM in IV NORMAL SALINE 100ML 100 ML IV SCH (06:01)
[2018-11-03 07:00] VITALS: BP 138/62
--- NOTE | 2018-11-03 08:10 | NUR ---
Entered patients room to preform shift assessment and found patient in bathroom taking a shower. When patient came out of bathroom, she stated that she forgot to have her IV covered and it accidently came out in the shower. This RN advised patient that she has 2 IV medications ordered and will need to reinsert IV. Patient asked if medication can be changed to PO instead as she believes she can go home today. Advised will page and speak to physician.
--- NOTE | 2018-11-03 08:55 | PDOC ---
Infectious Disease Note Subjective: Subjective Picked up vaping a month ago to help quit smoking cigarettes Less cough and reflux today after resuming Prevacid but still cannot stop coughing ,usually more at night Feeling nitin otherwise no fevers ROS: ROS Negative otherwise. Vital Signs: Vital Signs Vital Signs Date Time Temp Pulse Resp B/P (MAP) Pulse Ox O2 Delivery O2 Flow Rate FiO2 11/03/18 07:00 97.5 86 14 138/62 (87) Room Air 93.0 97.5 11/03/18 03:10 95 Physical Exam: PHYSICAL EXAM GENERAL: Propped up in bed, alert, comfortable HEENT: Oral cavity dry NECK: Supple LUNGS: Clear. HEART: S1, S2 regular. ABDOMEN: Obese, soft, nontender EXTREMITIES: No edema, cyanosis. SKIN: Warm to touch NEUROLOGIC: Alert, oriented PIV Medications: Inpatient Meds: Current Medications Medications (Trade) Dose Ordered Sig/Teagan Start Time Stop Time Status Last Admin Dose Admin Acetaminophen (Tylenol) 650 mg PRN Q4HRS PRN 10/28/18 19:00 10/29/18 18:59 DC 10/29/18 14:00 650 MG Acetaminophen/ Codeine Phosphate (Tylenol #3) 2 tab PRN Q6HRS PRN 10/29/18 18:00 11/01/18 22:03 2 TAB Albuterol/ Ipratropium (Duoneb) 3 ml Q4HRS 10/31/18 16:45 11/02/18 19:55 3 ML Alprazolam (Xanax) 0.25 mg PRN Q8HRS PRN 10/28/18 23:00 11/02/18 23:02 0.25 MG Aspirin (Daren Aspirin) 325 mg 1X ONCE 10/28/18 16:30 10/28/18 16:31 DC 10/28/18 16:22 325 MG Aspirin (Ecotrin) 81 mg [id number] 10/29/18 08:00 11/02/18 08:55 81 MG Atorvastatin Calcium (Lipitor) 40 mg QHS 10/29/18 21:00 11/02/18 20:14 40 MG Benzonatate (Tessalon Perle) 200 mg [id number] 11/01/18 21:00 11/02/18 20:14 200 MG Budesonide (Pulmicort) 0.5 mg RTBID 10/31/18 11:00 11/02/18 19:55 0.5 MG Bupropion HCl (Wellbutrin Xl) 300 mg DAILY 10/29/18 09:00 11/02/18 08:55 300 MG Docusate Sodium (Colace) 100 mg PRN BID PRN 10/30/18 18:45 11/01/18 22:03 100 MG Duloxetine HCl (Cymbalta) 60 mg DAILY 10/29/18 09:00 11/02/18 08:55 60 MG Epinephrine HCl (Adrenalin) 1 mg PRN 1X PRN 10/30/18 08:15 10/31/18 08:14 DC Fentanyl Citrate (Fentanyl 2ml Vial) 50 mcg PRN Q5MIN PRN 10/30/18 07:00 10/31/18 06:59 DC Fish Oil (Fish Oil) 1,000 mg DAILY 10/29/18 09:00 11/02/18 08:55 1,000 MG Guaifenesin (MUCINEX ER with DM) 2 tab BID 11/01/18 21:00 11/01/18 14:31 DC Guaifenesin (Robitussin Dm) 10 ml PRN Q4HRS PRN 10/28/18 23:00 11/02/18 02:44 10 ML Guaifenesin/ Codeine Phosphate (Robitussin Ac) 5 ml PRN Q6HRS PRN 11/02/18 13:30 11/03/18 03:09 5 ML Hydromorphone HCl (Dilaudid) 0.5 mg PRN Q10MIN PRN 10/30/18 07:00 10/31/18 06:59 DC Ibuprofen (Motrin) 400 mg PRN TID PRN 10/28/18 23:00 Lansoprazole (Prevacid) 30 mg BID 11/01/18 21:00 11/02/18 20:14 30 MG Lidocaine HCl 50 ml PRN 1X PRN 10/30/18 08:15 10/31/18 08:14 DC 10/30/18 10:32 50 ML Lidocaine HCl (Lidocaine 1% 20ml Vial) 20 ml PRN 1X PRN 10/30/18 08:15 10/31/18 08:14 DC 10/30/18 10:32 20 ML Lidocaine HCl (Lidocaine 2% Viscous) 100 ml PRN 1X PRN 10/30/18 08:15 10/31/18 08:14 DC 10/30/18 10:33 100 ML Lidocaine HCl (Xylocaine-Mpf 1% 2ml Vial) 2 ml PRN 1X PRN 10/30/18 07:00 10/31/18 06:59 DC Linezolid/Dextrose 300 ml @ 300 mls/hr Q12HR 10/28/18 21:00 10/29/18 08:28 DC 10/28/18 21:43 300 MLS/HR Magnesium Sulfate 50 ml @ 25 mls/hr 1X ONCE 11/01/18 15:00 11/01/18 16:59 DC 11/01/18 15:51 25 MLS/HR Meropenem 1 gm/ Sodium Chloride 100 ml @ 200 mls/hr Q8HRS 10/29/18 09:00 11/03/18 06:01 200 MLS/HR Metformin HCl (Glucophage) 500 mg BIDWMEALS 10/29/18 08:00 11/02/18 17:39 500 MG Methylprednisolone Sodium Succinate (SOLU-Medrol 40MG VIAL) 40 mg Q12HR 11/02/18 21:00 11/02/18 20:14 40 MG Morphine Sulfate (Morphine Sulfate) 1 mg PRN Q10MIN PRN 10/30/18 07:00 10/31/18 06:59 DC Nitroglycerin (Nitrostat) 0.4 mg PRN Q5MIN PRN 10/28/18 23:00 Non-Formulary Medication (Icosapent Ethyl (Vascepa)) 1 gm DAILY08 10/29/18 08:00 10/30/18 09:09 DC Non-Formulary Medication (Melatonin ) 10 mg HS PRN 10/28/18 23:00 UNV Ondansetron HCl (Zofran) 4 mg PRN Q6HRS PRN 10/29/18 20:15 11/01/18 09:40 4 MG Pantoprazole Sodium (Protonix) 40 mg BIDAC 11/01/18 08:00 11/01/18 16:27 DC 11/01/18 08:15 40 MG Phenol (Chloraseptic) 1 spray PRN Q2HR PRN 10/30/18 14:30 10/30/18 16:46 1 SPRAY Piperacillin Sod/ Tazobactam Sod 4.5 gm/Sodium Chloride 100 ml @ 200 mls/hr 1X ONCE 10/28/18 16:00 10/28/18 16:29 DC 10/28/18 16:22 200 MLS/HR Polyethylene Glycol (miraLAX PACKET) 17 gm PRN DAILY PRN 10/30/18 18:45 11/01/18 22:03 17 GM Prochlorperazine Edisylate (Compazine) 5 mg PACU PRN PRN 10/30/18 07:00 10/31/18 06:59 DC Psyllium Hydrophilic Mucilloid (Metamucil Fiber Packet) 1 pkt DAILY 10/30/18 19:00 11/02/18 08:55 1 PKT Ringer's Solution 1,000 ml @ 30 mls/hr Q24H 10/30/18 07:00 10/30/18 18:59 DC 10/30/18 10:24 30 MLS/HR Sodium Chloride 1,000 ml @ 1,000 mls/hr 1X ONCE 10/28/18 19:15 10/28/18 20:48 DC 10/28/18 19:10 1,000 MLS/HR Temazepam (Restoril) 15 mg PRN QHS PRN 10/28/18 23:00 UNV Vancomycin HCl (Vanco Per Pharmacy) 1 each 1X ONCE 10/28/18 16:00 10/29/18 08:28 DC Vancomycin HCl 2 gm/Sodium Chloride 500 ml @ 250 mls/hr 1X ONCE 10/28/18 17:00 10/28/18 19:03 DC 10/28/18 16:58 250 MLS/HR Labs: Lab Laboratory Tests Test 11/02/18 11:33 11/02/18 17:13 11/02/18 20:12 11/03/18 07:40 Glucose (Fingerstick) 147 mg/dL (70-99) 141 mg/dL (70-99) 153 mg/dL (70-99) 110 mg/dL (70-99) Micro BRONCH C/S NEG SO FAR Objective: Assessment: Symptoms of dizziness, fever, nausea of unclear etiology. She has not had any fever yet here. - better Leukocytosis - improved Bilateral patchy infiltrate s/p bronchoscopy, 10/30. culture no growth so far History of diagnosis of common variable immunodeficiency. Diabetes. Hypertension. Recent cardiac cath with no significant coronary artery disease. Gastric reflux Vaping Plan: Plan of Care DC merrem start augmentin Steroids bronch cultures/AFB neg so far KATINA neg discussed quitting vaping ALLYSON ARANDA MD Nov 03, 2018 08:55
[2018-11-03] MEDS: PSYLLIUM HUSK (SUGAR FREE) 1 PKT PACKET PO SCH (09:00)
[2018-11-03] MEDS: methylPREDNISolone SOD SUCC PF 40 MG/ML VIAL. IV SCH (09:00)
[2018-11-03] MEDS: BUDESONIDE 0.5 MG/2 ML NEBU. NEB SCH (09:01)
[2018-11-03] MEDS: POLYETHYLENE GLYCOL 3350 17 GM PACKET. PO PRN (09:24)
[2018-11-03] MEDS: OMEGA-3 FATTY ACIDS/FISH OIL 1,000 MG CAPSULE. PO SCH (09:25)
[2018-11-03] MEDS: metFORMIN 500 MG TABLET PO SCH (09:25)
[2018-11-03] MEDS: BENZONATATE 100 MG CAPSULE. PO SCH (09:25)
[2018-11-03] MEDS: buPROPion XL 150 MG TAB.ER.24H. PO SCH (09:25)
[2018-11-03] MEDS: DOCUSATE SODIUM 100 MG CAPSULE. PO PRN (09:26)
[2018-11-03] MEDS: ASPIRIN ENTERIC COATED 81 MG TABLET.DR. PO SCH (09:26)
[2018-11-03] MEDS: LANSOPRAZOLE 30 MG TAB.RAP.DR PO SCH (09:26)
[2018-11-03] MEDS: DULoxetine HCL 30 MG CAPSULE.DR PO SCH (09:26)
[2018-11-03] MEDS: guaiFENesin DM 600/30MG 1 TAB TAB.ER.12H PO SCH (09:32)
[2018-11-03 11:00] VITALS: BP 134/72
--- NOTE | 2018-11-03 11:19 | PDOC ---
PROGRESS NOTES History of Present Illness History of Present Illness DISCHARGE DX Bilateral pneumonia and leukocytosis. obesity, morbid Patchy areas of consolidation in the lower lobes, as well as the right middle lobe and lingula. This is favored to be infectious versus inflammatory in etiology. Given distribution possible aspiration. 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 She was treated for pneumonia in September and now //// recurrent pneumonia Hepatic steatosis. Small hiatal hernia. SEPSIS BRONCH RES 1 Preliminary Comment No growth in 36 - 48 hours. admitted, PO AUGMENTIN 875 MG PO BID X 10 DAYS breathing treatments, oxygen. SUPPORT iv steroids, home meds, DVT prophylaxis. Consult Dr. Forde. bronch culture pending KATINA pending DISCUSSED NEED TO STOP VAPING FOREVER 37 MIN PT EXAM, CHART REVIEW D/C PLANNING , > 50% OF TIME SPENT WITH EXAM, CHART REVIEW, PT CARE COORDINATION PROCEDURE: Bronchoscopy. INDICATIONS: Recurrent pneumonia. DESCRIPTION OF PROCEDURE: Informed consent was obtained from the patient. She agreed to proceed with the procedure. Propofol was used by Anesthesia for sedation. Bronch was introduced through the oral route as the nasal passages were tight. Vocal cords moves equally with respiration. The trachea was entered. No tracheal lesions seen. Maryann sharp. Right lung was examined. Minimal light creamy secretions seen in the right mainstem, which were removed. No significant secretions seen in the right upper, right middle or right lower lobe. Bronchoalveolar lavage performed from right lower lobe. No endobronchial lesions seen. Bronch was introduced into the left lung. Creamy secretions in the left main stem bronchus. No endobronchial lesion seen in all the subsegments of left upper lobe, lingula and left lower lobe. Bronchoalveolar lavage performed from the left lower lobe. The patient tolerated the procedure well. IMPRESSION: 1. Creamy secretion seen on the left main stem bronchus and also minimally in the right main stem bronchus. 2. Bronchoalveolar lavage performed from the right lower lobe and left lower lobe. 3. No endobronchial lesion seen. 4. Follow the culture results. Vitals Vitals Vital Signs Date Time Temp Pulse Resp B/P (MAP) Pulse Ox O2 Delivery O2 Flow Rate FiO2 11/03/18 09:03 97 Room Air 11/03/18 07:00 97.5 86 14 138/62 (87) 93.0 97.5 Physical Exam Physical Exam GENERAL: Propped up in bed, alert, comfortable HEENT: Oral cavity dry NECK: Supple LUNGS: Clear. HEART: S1, S2 regular. ABDOMEN: Obese, soft, nontender EXTREMITIES: No edema, cyanosis. SKIN: Warm to touch NEUROLOGIC: Alert, oriented PIV General: Alert, Oriented X3, Cooperative, mild distress Heart: Regular rate, Normal S1 Lungs: Crackles, Other (decrease bs BASILAR CRACKLES BILATERAL) Abdomen: Normal bowel sounds, Soft, No tenderness Extremities: No clubbing, No cyanosis, No edema Skin: No significant lesion Labs LABS Laboratory Tests Test 11/02/18 11:33 11/02/18 17:13 11/02/18 20:12 11/03/18 07:40 Glucose (Fingerstick) 147 mg/dL (70-99) 141 mg/dL (70-99) 153 mg/dL (70-99) 110 mg/dL (70-99) Assessment and Plan Assessmemt and Plan Problems Medical Problems: (1) Chest pain Status: Acute (2) Leukocytosis Status: Acute (3) Pneumonia Status: Acute (4) Sepsis Status: Acute Comment Review of Relevant I have reviewed the following items aide (where applicable) has been applied. Labs Laboratory Tests Test 11/01/18 11:56 11/01/18 17:23 11/01/18 20:41 11/02/18 07:46 Glucose (Fingerstick) 163 mg/dL (70-99) 139 mg/dL (70-99) 182 mg/dL (70-99) 99 mg/dL (70-99) Test 11/02/18 11:33 11/02/18 17:13 11/02/18 20:12 11/03/18 07:40 Glucose (Fingerstick) 147 mg/dL (70-99) 141 mg/dL (70-99) 153 mg/dL (70-99) 110 mg/dL (70-99) Laboratory Tests Test 11/02/18 11:33 11/02/18 17:13 11/02/18 20:12 11/03/18 07:40 Glucose (Fingerstick) 147 mg/dL (70-99) 141 mg/dL (70-99) 153 mg/dL (70-99) 110 mg/dL (70-99) Microbiology 10/30/18 AFB Specimen Processing Tissue - Final, Resulted 10/30/18 Acid Fast Bacilli Culture, Resulted Pending 10/30/18 Gram Stain - Final, Resulted 10/30/18 Fungal Culture, Resulted Pending 10/30/18 Fungal Culture Result 1, Resulted Pending 10/28/18 Blood Culture - Final, Complete NO GROWTH AFTER 5 DAYS Medications Current Medications Sodium Chloride 1,000 ml @ 1,860 mls/hr Q33M IV Last administered on 10/28/18at 16:55; Start 10/28/18 at 15:50; Stop 10/28/18 at 16:50; Status DC Piperacillin Sod/ Tazobactam Sod 4.5 gm/Sodium Chloride 100 ml @ 200 mls/hr 1X ONCE IV Last administered on 10/28/18 16:22; Start 10/28/18 at 16:00; Stop 10/28/18 at 16:29; Status DC Vancomycin HCl (Vanco Per Pharmacy) 1 each 1X ONCE MC ; Start 10/28/18 at 16:00; Stop 10/29/18 at 08:28; Status DC Fentanyl Citrate (Fentanyl 2ml Vial) 50 mcg PRN Q15MIN PRN IV PAIN GREATER THAN 3/10 Last administered on 10/28/18at 17:01; Start 10/28/18 at 16:00; Stop 10/29/18 at 15:59; Status DC Aspirin (Daren Aspirin) 325 mg 1X ONCE PO Last administered on 10/28/18 16:22; Start 10/28/18 at 16:30; Stop 10/28/18 at 16:31; Status DC Nitroglycerin (Nitrostat) 0.4 mg PRN Q5MIN PRN SL CP RATING > 1/10 Last administered on 10/28/18 16:22; Start 10/28/18 at 16:00; Stop 10/29/18 at 14:23; Status DC Acetaminophen (Tylenol) 1,000 mg 1X ONCE PO Last administered on 10/28/18 16:22; Start 10/28/18 at 16:00; Stop 10/28/18 at 16:01; Status DC Vancomycin HCl 2 gm/Sodium Chloride 500 ml @ 250 mls/hr 1X ONCE IV Last administered on 10/28/18at 16:58; Start 10/28/18 at 17:00; Stop 10/28/18 at 19:03; Status DC Ondansetron HCl (Zofran) 4 mg PRN Q8HRS PRN IV NAUSEA/VOMITING; Start 10/28/18 at 19:00; Stop 10/29/18 at 18:59; Status DC Acetaminophen (Tylenol) 650 mg PRN Q4HRS PRN PO FEVER Last administered on 10/29/18 14:00; Start 10/28/18 at 19:00; Stop 10/29/18 at 18:59; Status DC Sodium Chloride 1,000 ml @ 1,000 mls/hr 1X ONCE IV Last administered on 10/28/18 19:10; Start 10/28/18 at 19:15; Stop 10/28/18 at 20:48; Status DC Linezolid/Dextrose 300 ml @ 300 mls/hr Q12HR IV Last administered on 10/28/18 21:43; Start 10/28/18 at 21:00; Stop 10/29/18 at 08:28; Status DC Benzonatate (Tessalon Perle) 200 mg PRN Q6HRS PRN PO COUGH 3RD CHOICE Last administered on 11/01/18 09:34; Start 10/28/18 at 23:00 Temazepam (Restoril) 15 mg PRN QHS PRN PO INSOMNIA Last administered on 11/02/18 23:02; Start 10/28/18 at 23:00 Alprazolam (Xanax) 0.25 mg PRN Q8HRS PRN PO ANXIETY / AGITATION Last administered on 11/02/18 23:02; Start 10/28/18 at 23:00 Aspirin (Ecotrin) 81 mg DAILYWBKFT PO Last administered on 11/03/18 09:33; Start 10/29/18 at 08:00 Atorvastatin Calcium (Lipitor) 40 mg QHS PO Last administered on 11/02/18 20:14; Start 10/29/18 at 21:00 Guaifenesin (Robitussin Dm) 10 ml PRN Q4HRS PRN PO COUGH 1ST CHOICE Last ad ministered on 11/02/18 02:44; Start 10/28/18 at 23:00 Ibuprofen (Motrin) 400 mg PRN TID PRN PO INFLAMMATION; Start 10/28/18 at 23:00 Albuterol/ Ipratropium (Duoneb) 3 ml RTQID NEB Last administered on 10/31/18 15:12; Start 10/29/18 at 08:00; Stop 10/31/18 at 16:33; Status DC Metformin HCl (Glucophage) 500 mg BIDWMEALS PO Last administered on 11/03/18at 09:33; Start 10/29/18 at 08:00 Nitroglycerin (Nitrostat) 0.4 mg PRN Q5MIN PRN SL CHEST PAIN; Start 10/28/18 at 23:00 Bupropion HCl (Wellbutrin Xl) 300 mg DAILY PO Last administered on 11/03/18 09:33; Start 10/29/18 at 09:00 Duloxetine HCl (Cymbalta) 60 mg DAILY PO Last administered on 11/03/18 09:33; Start 10/29/18 at 09:00 Non-Formulary Medication (Icosapent Ethyl (Vascepa)) 1 gm DAILY08 PO ; Start 10/29/18 at 08:00; Stop 10/30/18 at 09:09; Status DC Pantoprazole Sodium (Protonix) 40 mg DAILYAC PO Last administered on 10/31/18 06:01; Start 10/29/18 at 07:30; Stop 11/01/18 at 07:27; Status DC Non-Formulary Medication (Melatonin ) 10 mg HS PRN PO INSOMNIA; Start 10/28/18 at 23:00; Status UNV Fish Oil (Fish Oil) 1,000 mg DAILY PO Last administered on 11/03/18at 09:33; Start 10/29/18 at 09:00 Temazepam (Restoril) 15 mg PRN QHS PRN PO INSOMNIA; Start 10/28/18 at 23:00; Status UNV Benzonatate (Tessalon Perle) 200 mg PRN Q6HRS PO ; Start 10/28/18 at 23:00; Status UNV Meropenem 1 gm/ Sodium Chloride 100 ml @ 200 mls/hr Q8HRS IV Last administered on 11/03/18at 06:01; Start 10/29/18 at 09:00; Stop 11/03/18 at 09:20; Status DC Guaifenesin (MUCINEX ER with DM) 2 tab BID PO Last administered on 11/03/18at 09:33; Start 10/29/18 at 21:00 Ondansetron HCl (Zofran) 4 mg PRN Q6HRS PRN IV NAUSEA/VOMITING; Start 10/30/18 at 07:00; Stop 10/31/18 at 06:59; Status DC Fentanyl Citrate (Fentanyl 2ml Vial) 25 mcg PRN Q5MIN PRN IV MILD PAIN 1-3; Start 10/30/18 at 07:00; Stop 10/31/18 at 06:59; Status DC Fentanyl Citrate (Fentanyl 2ml Vial) 50 mcg PRN Q5MIN PRN IV MODERATE TO SEVERE PAIN; Start 10/30/18 at 07:00; Stop 10/31/18 at 06:59; Status DC Morphine Sulfate (Morphine Sulfate) 1 mg PRN Q10MIN PRN IV SEVERE PAIN 7-10; Start 10/30/18 at 07:00; Stop 10/31/18 at 06:59; Status DC Ringer's Solution 1,000 ml @ 30 mls/hr Q24H IV Last administered on 10/30/18at 10:24; Start 10/30/18 at 07:00; Stop 10/30/18 at 18:59; Status DC Lidocaine HCl (Xylocaine-Mpf 1% 2ml Vial) 2 ml PRN 1X PRN ID PRIOR TO IV START; Start 10/30/18 at 07:00; Stop 10/31/18 at 06:59; Status DC Hydromorphone HCl (Dilaudid) 0.5 mg PRN Q10MIN PRN IV SEV PAIN, Second choice; Start 10/30/18 at 07:00; Stop 10/31/18 at 06:59; Status DC Prochlorperazine Edisylate (Compazine) 5 mg PACU PRN PRN IV NAUSEA, MRX1; Start 10/30/18 at 07:00; Stop 10/31/18 at 06:59; Status DC Acetaminophen/ Codeine Phosphate (Tylenol #3) 2 tab PRN Q6HRS PRN PO MODERATE PAIN Last administered on 11/01/18at 22:03; Start 10/29/18 at 18:00 Ondansetron HCl (Zofran) 4 mg PRN Q6HRS PRN IV NAUSEA/VOMITING Last administered on 9/7/19at 09:40; Start 10/29/18 at 20:15 Lidocaine HCl (Lidocaine 2% Viscous) 100 ml PRN 1X PRN MM MOUTH PAIN Last administered on 10/30/18 10:33; Start 10/30/18 at 08:15; Stop 10/31/18 at 08:14; Status DC Lidocaine HCl (Lidocaine 1% 20ml Vial) 20 ml PRN 1X PRN INJ SEE COMMENTS Last administered on 10/30/18 10:32; Start 10/30/18 at 08:15; Stop 10/31/18 at 08:14; Status DC Epinephrine HCl (Adrenalin) 1 mg PRN 1X PRN INJ SEE COMMENTS; Start 10/30/18 at 08:15; Stop 10/31/18 at 08:14; Status DC Lidocaine HCl 50 ml PRN 1X PRN MM SEE COMMENTS Last administered on 10/30/18 10:32; Start 10/30/18 at 08:15; Stop 10/31/18 at 08:14; Status DC Phenol (Chloraseptic) 1 spray PRN Q2HR PRN PO SORE THROAT Last administered on 10/30/18 16:46; Start 10/30/18 at 14:30 Psyllium Hydrophilic Mucilloid (Metamucil Fiber Packet) 1 pkt DAILY PO Last administered on 11/02/18 08:55; Start 10/30/18 at 19:00 Polyethylene Glycol (miraLAX PACKET) 17 gm PRN DAILY PRN PO CONSTIPATION Last administered on 11/03/18 09:33; Start 10/30/18 at 18:45 Docusate Sodium (Colace) 100 mg PRN BID PRN PO HARD STOOLS Last administered on 11/03/18 09:33; Start 10/30/18 at 18:45 Methylprednisolone Sodium Succinate (SOLU-Medrol 40MG VIAL) 40 mg Q8HRS IV Last administered on 11/02/18 06:51; Start 10/31/18 at 11:00; Stop 11/02/18 at 07:00; Status DC Budesonide (Pulmicort) 0.5 mg RTBID NEB Last administered on 11/03/18 09:01; Start 10/31/18 at 11:00 Albuterol/ Ipratropium (Duoneb) 3 ml Q4HRS NEB Last administered on 11/03/18 09:01; Start 10/31/18 at 16:45 Pantoprazole Sodium (Protonix) 40 mg BIDAC PO Last administered on 11/01/18at 08:15; Start 11/01/18 at 08:00; Stop 11/01/18 at 16:27; Status DC Benzonatate (Tessalon Perle) 200 mg [id number] PO Last administered on 11/03/18 09:33; Start 11/01/18 at 21:00 Guaifenesin (MUCINEX ER with DM) 2 tab BID PO ; Start 11/01/18 at 21:00; Stop 11/01/18 at 14:31; Status DC Magnesium Sulfate 50 ml @ 25 mls/hr 1X ONCE IV Last administered on 11/01/18at 15:51; Start 11/01/18 at 15:00; Stop 11/01/18 at 16:59; Status DC Lansoprazole (Prevacid) 30 mg DAILY PO ; Start 11/01/18 at 16:30; Stop 11/01/18 at 17:55; Status DC Lansoprazole (Prevacid) 30 mg BID PO Last administered on 11/03/18 09:33; Start 11/01/18 at 21:00 Methylprednisolone Sodium Succinate (SOLU-Medrol 40MG VIAL) 40 mg Q12HR IV Last administered on 11/02/18at 20:14; Start 11/02/18 at 21:00 Guaifenesin/ Codeine Phosphate (Robitussin Ac) 5 ml PRN Q6HRS PRN PO COUGH 2ND CHOICE Last administered on 11/03/18at 03:09; Start 11/02/18 at 13:30 Amoxicillin/ Clavulanate Potassium (Augmentin 875/ 125mg) 1 tab BID PO ; Start 11/03/18 at 21:00 Active Scripts Active NITROGLYCERIN SubLingual (Nitroglycerin) 0.4 Mg Tab.subl 0.4 Mg SL PRN Q5MIN PRN 30 Days Aspirin Ec (Aspirin) 81 Mg Tablet.dr 81 Mg PO DAILYWBKFT Alprazolam 0.25 Mg Tablet 0.25 Mg PO PRN Q8HRS PRN Atorvastatin Calcium 40 Mg Tablet 40 Mg PO QHS Guaifenesin Dm Syrup (Guaifenesin/Dextromethorphan) 5 Ml Syrup 10 Ml PO PRN Q4HRS PRN 10 Days Duoneb 0.5-3(2.5) Mg/3 Ml (Albuterol/Ipratropium) 3 Ml Ampul.neb 3 Ml NEB RTQID 30 Days Reported Metformin Hcl 500 Mg Tablet 500 Mg PO BID PRN Vascepa (Icosapent Ethyl) 1 Gm Capsule 1 Gm PO DAILY08 Melatonin 3 Mg Tablet 10 Mg PO HS PRN Ibuprofen 400 Mg Tablet 400 Mg PO PRN TID PRN Prevacid (Lansoprazole) 30 Mg Capsule. 1 Cap PO DAILY Lovaza (Street-3 Acid Ethyl Esters) 1 Gm Capsule 1 Gm PO DAILY08 Wellbutrin Xl (Bupropion Hcl) 300 Mg Tab.er.24h 1 Tab PO DAILY Cymbalta (Duloxetine Hcl) 60 Mg Capsule. 1 Cap PO DAILY Vitals/I & O Vital Sign - Last 24 Hours 11/02/18 11/02/18 11/02/18 11/02/18 11:59 15:00 16:12 19:20 Temp 97.6 97.6 Pulse 103 Resp 14 B/P (MAP) 149/76 (100) Pulse Ox 95 94 97 O2 Delivery Room Air Room Air Room Air Room Air 11/02/18 11/02/18 11/02/18 11/03/18 19:20 19:55 23:04 03:10 Temp 97.8 98.3 98.5 97.8 98.3 98.5 Pulse 111 98 88 Resp 18 18 18 B/P (MAP) 144/79 (100) 165/74 (104) 119/70 (86) Pulse Ox 95 97 95 95 O2 Delivery Room Air Room Air Room Air Room Air 11/03/18 11/03/18 07:00 09:03 Temp 97.5 97.5 Pulse 86 Resp 14 B/P (MAP) 138/62 (87) Pulse Ox 97 O2 Delivery Room Air Room Air O2 Flow Rate 93.0 Intake and Output 11/02/18 11/02/18 11/03/18 14:59 22:59 06:59 Intake Total 506 ml 340 ml Balance 506 ml 340 ml CRISTIAN BELLO MD Nov 03, 2018 11:19
--- NOTE | 2018-11-03 12:15 | PDOC ---
PULMONARY PROGRESS NOTES Subjective cough sob better, gerd symptoms better Vitals Vital Signs Date Time Temp Pulse Resp B/P (MAP) Pulse Ox O2 Delivery O2 Flow Rate FiO2 11/03/18 11:00 97.8 96 16 134/72 (92) 92 Room Air 97.8 11/03/18 07:00 93.0 ROS: No Nausea General: Alert, No acute distress Lungs: Other (decrease bs BASILAR CRACKLES BILATERAL) Cardiovascular: S1, S2 Abdomen: Soft, Non-tender Neuro Exam: Alert Extremities: No Edema Skin: Warm Labs Laboratory Tests Test 11/01/18 17:23 11/01/18 20:41 11/02/18 07:46 11/02/18 11:33 Glucose (Fingerstick) 139 mg/dL (70-99) 182 mg/dL (70-99) 99 mg/dL (70-99) 147 mg/dL (70-99) Test 11/02/18 17:13 11/02/18 20:12 11/03/18 07:40 11/03/18 12:00 Glucose (Fingerstick) 141 mg/dL (70-99) 153 mg/dL (70-99) 110 mg/dL (70-99) 98 mg/dL (70-99) Laboratory Tests Test 11/02/18 17:13 11/02/18 20:12 11/03/18 07:40 11/03/18 12:00 Glucose (Fingerstick) 141 mg/dL (70-99) 153 mg/dL (70-99) 110 mg/dL (70-99) 98 mg/dL (70-99) Medications Active Scripts Medications Dose Route/Sig Max Daily Dose Days Date Category NITROGLYCERIN SubLingual (Nitroglycerin) 0.4 Mg Tab.subl 0.4 Mg SL PRN Q5MIN PRN 30 10/21/18 Rx Aspirin Ec (Aspirin) 81 Mg Tablet.dr 81 Mg PO DAILYWBKFT 10/21/18 Rx Alprazolam 0.25 Mg Tablet 0.25 Mg PO PRN Q8HRS PRN 10/21/18 Rx Atorvastatin Calcium 40 Mg Tablet 40 Mg PO QHS 10/21/18 Rx Guaifenesin Dm Syrup (Guaifenesin/Dextromethorphan) 5 Ml Syrup 10 Ml PO PRN Q4HRS PRN 10 10/04/18 Rx Metformin Hcl 500 Mg Tablet 500 Mg PO BID PRN 09/29/18 Reported Vascepa (Icosapent Ethyl) 1 Gm Capsule 1 Gm PO DAILY08 09/29/18 Reported Duoneb 0.5-3(2.5) Mg/3 Ml (Albuterol/Ipratropium) 3 Ml Ampul.neb 3 Ml NEB RTQID 30 05/30/17 Rx Melatonin 3 Mg Tablet 10 Mg PO HS PRN 05/28/17 Reported Ibuprofen 400 Mg Tablet 400 Mg PO PRN TID PRN 05/28/17 Reported Prevacid (Lansoprazole) 30 Mg Capsule.dr 1 Cap PO DAILY 05/28/17 Reported Lovaza (Sorrento-3 Acid Ethyl Esters) 1 Gm Capsule 1 Gm PO DAILY08 05/28/17 Reported Wellbutrin Xl (Bupropion Hcl) 300 Mg Tab.er.24h 1 Tab PO DAILY 05/28/17 Reported Cymbalta (Duloxetine Hcl) 60 Mg Capsule.dr 1 Cap PO DAILY 05/28/17 Reported Impression . 1. 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 She was treated for pneumonia in September and now comes in with recurrent pneumonia. Her CT chest findings are showing more consolidation in the right lower lobe compared to previous CAT scan and also infiltrates in the left lower lobe. She is immunocompromised s/p bronchoscopy 2. Forty years of tobacco use, suspect underlying chronic obstructive pulmonary disease. Plan . 1. change to po steroids, cont protonix to bid bronchoscopy cultures, so far neg 2. po abx 3. ok [facility] home 4. Continue bronchodilators. discussed w pt LAVONNE CAMPO MD Nov 03, 2018 12:15
--- NOTE | 2018-11-03 14:17 | NUR ---
SS following up with discharge planning. Pt is currently on room air. No discharge needs noted at this time. SS will continue to follow for discharge planning.
--- NOTE | 2018-11-03 14:34 | PDOC3 ---
Discharge Summary Date of Admission: Oct 28, 2018 Date of Discharge: Nov 03, 2018 Follow-Up: 3-5 days Admitting Diagnosis comment: DISCHARGE DX Bilateral pneumonia and leukocytosis. VAPING TOXICITY obesity, morbid Patchy areas of consolidation in the lower lobes, as well as the right middle lobe and lingula. This is favored to be infectious versus inflammatory in etiology. Given distribution possible aspiration. 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 She was treated for pneumonia in September and now //// recurrent pneumonia Hepatic steatosis. Small hiatal hernia. SEPSIS BRONCH RES 1 Preliminary Comment No growth in 36 - 48 hours. admitted, PO AUGMENTIN 875 MG PO BID X 10 DAYS breathing treatments, oxygen. SUPPORT iv steroids, home meds, DVT prophylaxis. Consult Dr. Forde. bronch culture pending KATINA pending DISCUSSED NEED TO STOP VAPING FOREVER 37 MIN PT EXAM, CHART REVIEW D/C PLANNING , > 50% OF TIME SPENT WITH EXAM, CHART REVIEW, PT CARE COORDINATION PROCEDURE: Bronchoscopy. INDICATIONS: Recurrent pneumonia. DESCRIPTION OF PROCEDURE: Informed consent was obtained from the patient. She agreed to proceed with the procedure. Propofol was used by Anesthesia for sedation. Bronch was introduced through the oral route as the nasal passages were tight. Vocal cords moves equally with respiration. The trachea was entered. No tracheal lesions seen. Maryann sharp. Right lung was examined. Minimal light creamy secretions seen in the right mainstem, which were removed. No significant secretions seen in the right upper, right middle or right lower lobe. Bronchoalveolar lavage performed from right lower lobe. No endobronchial lesions seen. Bronch was introduced into the left lung. Creamy secretions in the left main stem bronchus. No endobronchial lesion seen in all the subsegments of left upper lobe, lingula and left lower lobe. Bronchoalveolar lavage performed from the left lower lobe. The patient tolerated the procedure well. IMPRESSION: 1. Creamy secretion seen on the left main stem bronchus and also minimally in the right main stem bronchus. 2. Bronchoalveolar lavage performed from the right lower lobe and left lower lobe. 3. No endobronchial lesion seen. 4. Follow the culture results. Vitals ON ROOM AIR Vitals Vital Signs Date Time Temp Pulse Resp B/P (MAP) Pulse Ox O2 Delivery O2 Flow Rate FiO2 11/03/18 09:03 97 Room Air 11/03/18 07:00 97.5 86 14 138/62 (87) 93.0 97.5 Physical Exam Physical Exam GENERAL: Propped up in bed, alert, comfortable HEENT: Oral cavity dry NECK: Supple LUNGS: Clear. HEART: S1, S2 regular. ABDOMEN: Obese, soft, nontender EXTREMITIES: No edema, cyanosis. SKIN: Warm to touch NEUROLOGIC: Alert, oriented PIV General: Alert, Oriented X3, Cooperative, mild distress Heart: Regular rate, Normal S1 Lungs: Crackles, Other (decrease bs BASILAR CRACKLES BILATERAL) Abdomen: Normal bowel sounds, Soft, No tenderness Extremities: No clubbing, No cyanosis, No edema Skin: No significant lesion FINAL DIAGNOSIS Problems Medical Problems: (1) Chest pain Status: Acute (2) Leukocytosis Status: Acute (3) Pneumonia Status: Acute (4) Sepsis Status: Acute Brief Hospital Course Ms. Najera is a 53 old [sex] who presented with [ ] CONDITION AT DISCHARGE: Improved Discharge Medications Current Medications Sodium Chloride 1,000 ml @ 1,860 mls/hr Q33M IV Last administered on 10/28/18at 16:55; Start 10/28/18 at 15:50; Stop 10/28/18 at 16:50; Status DC Piperacillin Sod/ Tazobactam Sod 4.5 gm/Sodium Chloride 100 ml @ 200 mls/hr 1X ONCE IV Last administered on 10/28/18at 16:22; Start 10/28/18 at 16:00; Stop 10/28/18 at 16:29; Status DC Vancomycin HCl (Vanco Per Pharmacy) 1 each 1X ONCE MC ; Start 10/28/18 at 16:00; Stop 10/29/18 at 08:28; Status DC Fentanyl Citrate (Fentanyl 2ml Vial) 50 mcg PRN Q15MIN PRN IV PAIN GREATER THAN 3/10 Last administered on 10/28/18at 17:01; Start 10/28/18 at 16:00; Stop 10/29/18 at 15:59; Status DC Aspirin (Daren Aspirin) 325 mg 1X ONCE PO Last administered on 10/28/18at 16:22; Start 10/28/18 at 16:30; Stop 10/28/18 at 16:31; Status DC Nitroglycerin (Nitrostat) 0.4 mg PRN Q5MIN PRN SL CP RATING > 1/10 Last administered on 10/28/18 16:22; Start 10/28/18 at 16:00; Stop 10/29/18 at 14:23; Status DC Acetaminophen (Tylenol) 1,000 mg 1X ONCE PO Last administered on 10/28/18 16:22; Start 10/28/18 at 16:00; Stop 10/28/18 at 16:01; Status DC Vancomycin HCl 2 gm/Sodium Chloride 500 ml @ 250 mls/hr 1X ONCE IV Last administered on 10/28/18 16:58; Start 10/28/18 at 17:00; Stop 10/28/18 at 19:03; Status DC Ondansetron HCl (Zofran) 4 mg PRN Q8HRS PRN IV NAUSEA/VOMITING; Start 10/28/18 at 19:00; Stop 10/29/18 at 18:59; Status DC Acetaminophen (Tylenol) 650 mg PRN Q4HRS PRN PO FEVER Last administered on 10/29/18at 14:00; Start 10/28/18 at 19:00; Stop 10/29/18 at 18:59; Status DC Sodium Chloride 1,000 ml @ 1,000 mls/hr 1X ONCE IV Last administered on 10/28/18 19:10; Start 10/28/18 at 19:15; Stop 10/28/18 at 20:48; Status DC Linezolid/Dextrose 300 ml @ 300 mls/hr Q12HR IV Last administered on 10/28/18 21:43; Start 10/28/18 at 21:00; Stop 10/29/18 at 08:28; Status DC Benzonatate (Tessalon Perle) 200 mg PRN Q6HRS PRN PO COUGH 3RD CHOICE Last administered on 11/01/18 09:34; Start 10/28/18 at 23:00 Temazepam (Restoril) 15 mg PRN QHS PRN PO INSOMNIA Last administered on 11/02/18 23:02; Start 10/28/18 at 23:00 Alprazolam (Xanax) 0.25 mg PRN Q8HRS PRN PO ANXIETY / AGITATION Last administered on 11/02/18 23:02; Start 10/28/18 at 23:00 Aspirin (Ecotrin) 81 mg DAILYWBKFT PO Last administered on 11/03/18 09:33; Start 10/29/18 at 08:00 Atorvastatin Calcium (Lipitor) 40 mg QHS PO Last administered on 11/02/18 20:14; Start 10/29/18 at 21:00 Guaifenesin (Robitussin Dm) 10 ml PRN Q4HRS PRN PO COUGH 1ST CHOICE Last administered on 11/02/18 02:44; Start 10/28/18 at 23:00 Ibuprofen (Motrin) 400 mg PRN TID PRN PO INFLAMMATION; Start 10/28/18 at 23:00 Albuterol/ Ipratropium (Duoneb) 3 ml RTQID NEB Last administered on 10/31/18 15:12; Start 10/29/18 at 08:00; Stop 10/31/18 at 16:33; Status DC Metformin HCl (Glucophage) 500 mg BIDWMEALS PO Last administered on 11/03/18 09:33; Start 10/29/18 at 08:00 Nitroglycerin (Nitrostat) 0.4 mg PRN Q5MIN PRN SL CHEST PAIN; Start 10/28/18 at 23:00 Bupropion HCl (Wellbutrin Xl) 300 mg DAILY PO Last administered on 11/03/18 09:33; Start 10/29/18 at 09:00 Duloxetine HCl (Cymbalta) 60 mg DAILY PO Last administered on 11/03/18 09:33; Start 10/29/18 at 09:00 Non-Formulary Medication (Icosapent Ethyl (Vascepa)) 1 gm DAILY08 PO ; Start 10/29/18 at 08:00; Stop 10/30/18 at 09:09; Status DC Pantoprazole Sodium (Protonix) 40 mg DAILYAC PO Last administered on 10/31/18 06:01; Start 10/29/18 at 07:30; Stop 11/01/18 at 07:27; Status DC Non-Formulary Medication (Melatonin ) 10 mg HS PRN PO INSOMNIA; Start 10/28/18 at 23:00; Status UNV Fish Oil (Fish Oil) 1,000 mg DAILY PO Last administered on 11/03/18 09:33; Start 10/29/18 at 09:00 Temazepam (Restoril) 15 mg PRN QHS PRN PO INSOMNIA; Start 10/28/18 at 23:00; Status UNV Benzonatate (Tessalon Perle) 200 mg PRN Q6HRS PO ; Start 10/28/18 at 23:00; Status UNV Meropenem 1 gm/ Sodium Chloride 100 ml @ 200 mls/hr Q8HRS IV Last administered on 11/03/18at 06:01; Start 10/29/18 at 09:00; Stop 11/03/18 at 09:20; Status DC Guaifenesin (MUCINEX ER with DM) 2 tab BID PO Last administered on 11/03/18at 09:33; Start 10/29/18 at 21:00 Ondansetron HCl (Zofran) 4 mg PRN Q6HRS PRN IV NAUSEA/VOMITING; Start 10/30/18 at 07:00; Stop 10/31/18 at 06:59; Status DC Fentanyl Citrate (Fentanyl 2ml Vial) 25 mcg PRN Q5MIN PRN IV MILD PAIN 1-3; Start 10/30/18 at 07:00; Stop 10/31/18 at 06:59; Status DC Fentanyl Citrate (Fentanyl 2ml Vial) 50 mcg PRN Q5MIN PRN IV MODERATE TO SEVERE PAIN; Start 10/30/18 at 07:00; Stop 10/31/18 at 06:59; Status DC Morphine Sulfate (Morphine Sulfate) 1 mg PRN Q10MIN PRN IV SEVERE PAIN 7-10; Start 10/30/18 at 07:00; Stop 10/31/18 at 06:59; Status DC Ringer's Solution 1,000 ml @ 30 mls/hr Q24H IV Last administered on 10/30/18at 10:24; Start 10/30/18 at 07:00; Stop 10/30/18 at 18:59; Status DC Lidocaine HCl (Xylocaine-Mpf 1% 2ml Vial) 2 ml PRN 1X PRN ID PRIOR TO IV START; Start 10/30/18 at 07:00; Stop 10/31/18 at 06:59; Status DC Hydromorphone HCl (Dilaudid) 0.5 mg PRN Q10MIN PRN IV SEV PAIN, Second choice; Start 10/30/18 at 07:00; Stop 10/31/18 at 06:59; Status DC Prochlorperazine Edisylate (Compazine) 5 mg PACU PRN PRN IV NAUSEA, MRX1; Start 10/30/18 at 07:00; Stop 10/31/18 at 06:59; Status DC Acetaminophen/ Codeine Phosphate (Tylenol #3) 2 tab PRN Q6HRS PRN PO MODERATE PAIN Last administered on 11/01/18 22:03; Start 10/29/18 at 18:00 Ondansetron HCl (Zofran) 4 mg PRN Q6HRS PRN IV NAUSEA/VOMITING Last admini stered on 11/01/18at 09:40; Start 10/29/18 at 20:15 Lidocaine HCl (Lidocaine 2% Viscous) 100 ml PRN 1X PRN MM MOUTH PAIN Last admi nistered on 10/30/18at 10:33; Start 10/30/18 at 08:15; Stop 10/31/18 at 08:14; Status DC Lidocaine HCl (Lidocaine 1% 20ml Vial) 20 ml PRN 1X PRN INJ SEE COMMENTS Last administered on 10/30/18at 10:32; Start 10/30/18 at 08:15; Stop 10/31/18 at 08:14; Status DC Epinephrine HCl (Adrenalin) 1 mg PRN 1X PRN INJ SEE COMMENTS; Start 10/30/18 at 08:15; Stop 10/31/18 at 08:14; Status DC Lidocaine HCl 50 ml PRN 1X PRN MM SEE COMMENTS Last administered on 10/30/18at 10:32; Start 10/30/18 at 08:15; Stop 10/31/18 at 08:14; Status DC Phenol (Chloraseptic) 1 spray PRN Q2HR PRN PO SORE THROAT Last administered on 10/30/18 16:46; Start 10/30/18 at 14:30 Psyllium Hydrophilic Mucilloid (Metamucil Fiber Packet) 1 pkt DAILY PO Last administered on 11/02/18 08:55; Start 10/30/18 at 19:00 Polyethylene Glycol (miraLAX PACKET) 17 gm PRN DAILY PRN PO CONSTIPATION Last administered on 11/03/18 09:33; Start 10/30/18 at 18:45 Docusate Sodium (Colace) 100 mg PRN BID PRN PO HARD STOOLS Last administered on 11/03/18 09:33; Start 10/30/18 at 18:45 Methylprednisolone Sodium Succinate (SOLU-Medrol 40MG VIAL) 40 mg Q8HRS IV Last administered on 11/02/18 06:51; Start 10/31/18 at 11:00; Stop 11/02/18 at 07:00; Status DC Budesonide (Pulmicort) 0.5 mg RTBID NEB Last administered on 11/03/18 09:01; Start 10/31/18 at 11:00 Albuterol/ Ipratropium (Duoneb) 3 ml Q4HRS NEB Last administered on 11/03/18 09:01; Start 10/31/18 at 16:45 Pantoprazole Sodium (Protonix) 40 mg BIDAC PO Last administered on 11/01/18 08:15; Start 11/01/18 at 08:00; Stop 11/01/18 at 16:27; Status DC Benzonatate (Tessalon Perle) 200 mg [id number] PO Last administered on 11/03/18 09:33; Start 11/01/18 at 21:00 Guaifenesin (MUCINEX ER with DM) 2 tab BID PO ; Start 11/01/18 at 21:00; Stop 11/01/18 at 14:31; Status DC Magnesium Sulfate 50 ml @ 25 mls/hr 1X ONCE IV Last administered on 11/01/18 15:51; Start 11/01/18 at 15:00; Stop 11/01/18 at 16:59; Status DC Lansoprazole (Prevacid) 30 mg DAILY PO ; Start 11/01/18 at 16:30; Stop 11/01/18 at 17:55; Status DC Lansoprazole (Prevacid) 30 mg BID PO Last administered on 11/03/18 09:33; Start 11/01/18 at 21:00 Methylprednisolone Sodium Succinate (SOLU-Medrol 40MG VIAL) 40 mg Q12HR IV Last administered on 11/02/18 20:14; Start 11/02/18 at 21:00 Guaifenesin/ Codeine Phosphate (Robitussin Ac) 5 ml PRN Q6HRS PRN PO COUGH 2ND CHOICE Last administered on 11/03/18 03:09; Start 11/02/18 at 13:30 Amoxicillin/ Clavulanate Potassium (Augmentin 875/ 125mg) 1 tab BID PO ; Start 11/03/18 at 21:00 Active Scripts Active NITROGLYCERIN SubLingual (Nitroglycerin) 0.4 Mg Tab.subl 0.4 Mg SL PRN Q5MIN PRN 30 Days Aspirin Ec (Aspirin) 81 Mg Tablet.dr 81 Mg PO DAILYWBKFT Alprazolam 0.25 Mg Tablet 0.25 Mg PO PRN Q8HRS PRN Atorvastatin Calcium 40 Mg Tablet 40 Mg PO QHS Guaifenesin Dm Syrup (Guaifenesin/Dextromethorphan) 5 Ml Syrup 10 Ml PO PRN Q4HRS PRN 10 Days Duoneb 0.5-3(2.5) Mg/3 Ml (Albuterol/Ipratropium) 3 Ml Ampul.neb 3 Ml NEB RTQID 30 Days Reported Metformin Hcl 500 Mg Tablet 500 Mg PO BID PRN Vascepa (Icosapent Ethyl) 1 Gm Capsule 1 Gm PO DAILY08 Melatonin 3 Mg Tablet 10 Mg PO HS PRN Ibuprofen 400 Mg Tablet 400 Mg PO PRN TID PRN Prevacid (Lansoprazole) 30 Mg Capsule. 1 Cap PO DAILY Lovaza ([place]-3 Acid Ethyl Esters) 1 Gm Capsule 1 Gm PO DAILY08 Wellbutrin Xl (Bupropion Hcl) 300 Mg Tab.er.24h 1 Tab PO DAILY Cymbalta (Duloxetine Hcl) 60 Mg Capsule. 1 Cap PO DAILY Vital Signs Vital Signs Date Time Temp Pulse Resp B/P (MAP) Pulse Ox O2 Delivery O2 Flow Rate FiO2 11/03/18 11:00 97.8 96 16 134/72 (92) 92 Room Air 97.8 11/03/18 07:00 93.0 Labs Laboratory Tests Test 11/01/18 17:23 11/01/18 20:41 11/02/18 07:46 11/02/18 11:33 Glucose (Fingerstick) 139 mg/dL (70-99) 182 mg/dL (70-99) 99 mg/dL (70-99) 147 mg/dL (70-99) Test 11/02/18 17:13 11/02/18 20:12 11/03/18 07:40 11/03/18 12:00 Glucose (Fingerstick) 141 mg/dL (70-99) 153 mg/dL (70-99) 110 mg/dL (70-99) 98 mg/dL (70-99) Laboratory Tests Test 11/02/18 17:13 11/02/18 20:12 11/03/18 07:40 11/03/18 12:00 Glucose (Fingerstick) 141 mg/dL (70-99) 153 mg/dL (70-99) 110 mg/dL (70-99) 98 mg/dL (70-99) Allergies Allergies Coded Allergies Type Severity Reaction Last Updated Verified No Known Medication Allergies Allergy Unknown 10/20/18 Yes morphine Adverse Reaction Intermediate "LOOPY AND MEAN" 10/30/18 Yes Disposition/Orders: D/C to Home Patient Instructions D/C PLANNING 37 MIN CRISTIAN BELLO MD Nov 03, 2018 14:34
[2018-11-03] MEDS ORDERED: BUDE0.5A NEB (14:39)
[2018-11-03] MEDS ORDERED: BENZ-8 PO (14:39)
[2018-11-03] MEDS ORDERED: AMOX1TAB11 PO (14:39)
[2018-11-03] MEDS ORDERED: DOCU-109 PO (14:39)
[2018-11-03] MEDS ORDERED: PRED20TA PO (14:39)
--- NOTE | 2018-11-03 14:44 | DISCH ---
DISCHARGE INSTRUCTIONS Condition on Discharge Condition on Discharge: Stable Activity After Discharge Activity Instructions for Disc: Activity as tolerated, Avoid exertion Lifting Instructions after Dis: No heavy lifting, No pulling or pushing, Do not lift >10 pounds Exercise Instruction after Dis: Walk 10 min, 3 x per day, Walk 15 min, 3 x per day Driving Instructions after Dis: Do not drive today Weight Bearing Status after Di: No restrictions Diet after Discharge Diet after Discharge: Cardiac, Diabetic No Calorie Level Diet Texture: Regular Liquid Texture: Thin Liquid Wound Incision Care Wound/Incision Care: No wound care needed Checks after Discharge Checks after discharge: Check blood press - daily Contacting the after DC Call your doctor for: If your condition worsens Treatment/Equipment after DC Adaptive Equipment Issued: None Warfarin Follow-Up Warfarin Follow UP: SEE DR PATTERSON NEXT WEEK,PCP CRISTIAN BARRIOS MD Nov 03, 2018 14:44
[2018-11-03 15:00] VITALS: BP 149/83
[2018-11-03] MEDS ORDERED: AMOXICILLIN/K CLAV 875/125MG TABLET. PO SCH (21:00)
--- NOTE | 2018-11-05 15:07 | PATHOLOGY ---
Note [facility] Accession Number: [id number] TESTS RESULT FLAG UNITS REF RANGE LAB Clinician Provided Cytology Information No. of containers..01 Other (Miscellaneous) Source: RLL/LLL MIXED BAL DIAGNOSIS: 02 RLL/LLL MIXED BAL NEGATIVE FOR MALIGNANT CELLS. BRONCHIAL EPITHELIAL CELLS, PULMONARY MACROPHAGES, AND ACUTE INFLAMMATORY CELLS PRESENT. Signed out by: 02 Boby Camara MD, Pathologist NPI- [id number] Performed by: Erica Salcido, Health Unit Clerk ([facility]) Gross description: 01 2ML, PINK, CLOUDY /LCS 02/25/1840 0000 Local FLAG LEGEND: L-Low Normal,H-High Normal,LL-Alert Low,HH-Alert High <-Panic Low,>-Panic High,A-Abnormal,AA-Critical Abnormal Performed at: [address] [place] [address] Christopher Medrano MD, [id number] [place] [address] Boby Camara MD, Specimen Comment: A courtesy copy of this report has been sent to Specimen Comment: [phone]. Specimen Comment: Report sent to Performed at: [address] [place] [address] [address], [place], [place] [id number] MD Christopher Medrano MD Phone: [phone]
== END 2018-11-03 15:55 | disposition home or self-care (01) | DRG 871 ==
LOC: ER 14:28 → 2 NORTH 17:13
PROVIDERS: ADMIT Internal Medicine; ATTEND Internal Medicine
PROC: 0B9F8ZX Drainage of Right Lower Lung Lobe, Via Natural or Artificial Opening Endoscopic, Diagnostic (ICD-10-PCS; 2018-10-30)
PROC: 0B9J8ZX Drainage of Left Lower Lung Lobe, Via Natural or Artificial Opening Endoscopic, Diagnostic (ICD-10-PCS; principal; 2018-10-30 11:00)
DX: A41.9 Sepsis, unspecified organism (principal); J18.9 Pneumonia, unspecified organism; I10 Essential (primary) hypertension; E11.9 Type 2 diabetes mellitus without complications; K21.9 Gastro-esophageal reflux disease without esophagitis; F32.9 Major depressive disorder, single episode, unspecified; E78.00 Pure hypercholesterolemia, unspecified; F17.200 Nicotine dependence, unspecified, uncomplicated; E66.01 Morbid (severe) obesity due to excess calories; K44.9 Diaphragmatic hernia without obstruction or gangrene; K76.0 Fatty (change of) liver, not elsewhere classified; E78.5 Hyperlipidemia, unspecified; Z68.32 Body mass index [BMI] 32.0-32.9, adult; I25.2 Old myocardial infarction; Z90.710 Acquired absence of both cervix and uterus; Z90.49 Acquired absence of other specified parts of digestive tract; Z88.5 Allergy status to narcotic agent; Z87.01 Personal history of pneumonia (recurrent); Z83.3 Family history of diabetes mellitus
CPT/HCPCS: 31622; 36415; 71046; 71250; 80048; 80053; 80307; 81001; 82553; 82962; 83605; 83735; 83880; 84145; 84443; 84484; 85007; 85025; 85610; 86038; 86713; 87040; 87070; 87102; 87116; 87205; 87804; 93005; 94640; 94760; J2020; J2185; J2405; J2543; J2920; J3010; J3370; J3475; J7030; J7040; J7120; J7620; J7626; 99285-25; G0378

== ENCOUNTER → 2021-03-28 | Outpatient (CLI) | payer BC ==
[~2021-03-28] MED LIST changes: +AMOX1TAB11 PO; -ASPI-612 PO; +ASPI-886 PO; +BENZ-8 PO; +BUDE0.5A NEB; -DULO60CA6 PO; +DULO60CA7 PO; +LINE600T12 PO; -LINE600T37 PO; +MELA3TAB4 PO; -MELA3TAB56 PO; +PRED20TA PO
--- NOTE | 2021-03-28 12:08 | CARD ---
MR#: [id number] Date of Study: 03/28/2021 Ordering Physician: KARLA PALAFOX, Referring Physician: KARLA PALAFOX, Tech: Percy Avery [facility] APPROVED REPORT EXAM: Two-dimensional and M-mode echocardiogram with Doppler and color Doppler. Other Information Quality : FairHR: 73bpm Rhythm : NSR INDICATION Syncope RISK FACTORS Hypertension Obesity Smoking 2D DIMENSIONS Left Atrium(2D)3.8 (1.6-4.0cm)IVSd1.4 (0.7-1.1cm) Aortic Root(2D)3.7 (2.0-3.7cm)LVDd3.9 (3.9-5.9cm) PWd1.3 (0.7-1.1cm)LVDs2.5 (2.5-4.0cm) FS (%) 36.6 %SV44.9 ml LVEF(%)67.0 (>50%) Aortic Valve AoV Peak Ken.117.3cm/sAoV VTI30.7cm AO Peak GR.5.5mmHgLVOT Peak Ken.93.9cm/s LVOT VTI 22.71cmAO Mean GR.3mmHg Mitral Valve MV E Kjtrxujl759.6cm/sMV DECEL GYLW105nd MV A Avnfbjty63.8cm/sMV BRH38ak E/A Ratio1.3MVA (PHT)3.76cm2 TDI E/Lateral E'16.8E/Medial E'22.7 Pulmonary Valve PV Peak Ilwvknea36.8cm/sPV Peak Grad.2mmHg Tricuspid Valve TR P. Sxdwalze523yj/sTR Peak Gr.21mmHg Pulmonary Vein S1 Pazoablt98.8cm/sD2 Adqunaoq03.1cm/s LEFT VENTRICLE The left ventricle is normal size. There is mild concentric left ventricular hypertrophy. The left ve ntricular systolic function is normal. The ejection fraction is 60%. There is normal LV segmental wal l motion. No left ventricle thrombus noted on this study. There is no ventricular septal defect visua lized. There is no left ventricular aneurysm. There is no mass noted in the left ventricle. RIGHT VENTRICLE The right ventricle is normal size. There is normal right ventricular wall thickness. The right ventr icular systolic function is normal. ATRIA The left atrium is borderline dilated. The right atrium size is normal. The interatrial septum is int act with no evidence for an atrial septal defect or patent foramen ovale as noted on 2-D or Doppler i maging. AORTIC VALVE The aortic valve is normal in structure and function. Doppler and Color Flow revealed trace aortic re gurgitation. There is no significant aortic valvular stenosis. There is no aortic valvular vegetation . MITRAL VALVE The mitral valve is normal in structure and function. There is no evidence of mitral valve prolapse. There is no mitral valve stenosis. Doppler and Color-flow revealed trace mitral regurgitation. TRICUSPID VALVE The tricuspid valve is normal in structure and function. Doppler and Color Flow revealed trace tricus pid regurgitation. There is no tricuspid valve prolapse or vegetation. There is no tricuspid valve st enosis. PULMONIC VALVE The pulmonary valve is normal in structure and function. Doppler and Color Flow revealed no pulmonic valvular regurgitation. There is no pulmonic valvular stenosis. GREAT VESSELS The aortic root is normal in size. The ascending aorta is normal in size. The pulmonary artery is nor mal. The IVC is normal in size and collapses >50% with inspiration. PERICARDIAL EFFUSION There is no pleural effusion. There is no evidence of significant pericardial effusion. Critical Notification Critical Value: No <Conclusion> The left ventricular systolic function is normal. The ejection fraction is 60%. There is normal LV segmental wall motion. Trace mitral regurgitation. Trace tricuspid regurgitation. There is no evidence of significant pericardial effusion. Signed by : Brian Mendes, Electronically Approved : 03/28/2021 12:08:17
== END ==
LOC: ECHO 08:42
PROVIDERS: ATTEND Internal Medicine Cardiovascular Disease
DX: I51.7 Cardiomegaly (principal); R55 Syncope and collapse
CPT/HCPCS: 93306; C8929